=== PATIENT | male | born 1970 | race African-American/Black ===

== ENCOUNTER → 2022-10-24 13:22 | Outpatient (BNVA) | payer OTHER, SELFPAY | PROVIDERS: PCP Nurse Practitioner Family; Visit Provider Nurse Practitioner Family | DX: N39.0 Urinary tract infection, site not specified (principal); N52.9 Male erectile dysfunction, unspecified | CPT/HCPCS: 51798; 99202 ==

== ENCOUNTER 2023-08-22 14:54 | Outpatient (REF) | payer BC, MEDICAID, SELFPAY | END 2023-08-22 14:55 | disposition home or self-care (01) | LOC: HO.LAB 14:54 | PROVIDERS: PCP Nurse Practitioner Family; Visit Provider Nurse Practitioner Family | DX: N39.0 Urinary tract infection, site not specified (principal); N40.0 Benign prostatic hyperplasia without lower urinary tract symptoms; N52.9 Male erectile dysfunction, unspecified | CPT/HCPCS: 51798; 81003; 87086; 87088; 87186 ==

== ENCOUNTER 2023-08-22 14:54 | Outpatient (AMB) | payer BC, MEDICAID, SELFPAY ==
--- NOTE | 2023-08-22 14:57 | A.OFFVIS_ITS ---
Intake Intake Visit Reasons: follow up Intake Note: Patient presents for follow up recurrent uti and erectile dysfunction Urology Medications: Doxasosin, Methenamine, Sildenafil, Tadalafil, Vitamin C Blood Thinner: none PVR: 21 Linux System Administrator Required: No Accompanied by: Self / Same As Patient Allergies allopurinol Adverse Reaction (Verified 08/22/23 15:40) Itching Medication List - Last Reconciled 08/22/23 by JEREMIE Finney- ascorbic acid (vitamin C) 1 g PO DAILY 90 days atorvastatin 40 mg PO DAILY doxazosin 4 mg (2 x 2 mg) PO DAILY 90 days febuxostat 40 mg PO DAILY glipizide 5 mg PO BID hydrochlorothiazide 25 mg PO DAILY irbesartan 150 mg PO DAILY metformin 500 mg PO BID methenamine hippurate 1 g PO daily 90 days sildenafil 100 mg PO .PRN 30 days tadalafil 5 mg PO DAILY 90 days HPI HPI Comments History of Present Illness Details Carrillo is a pleasant 53-year-old male patient of Dr. Wei. He has a past medical history of recurrent urinary tract infections, hypertension, kidney disease, hyperlipidemia, gout, and type 2 diabetes. He presents to the office today for follow-up. Of note, patient was seen approximately 10 months ago as a new patient for recurrent urinary tract infections at which time recommendations were made for a retroperitoneal ultrasound as well as a PSA for further assessment evaluation. However, in discussion with the patient today he reports having lost his insurance and was unable to make it to his follow-up appointments. He discusses having made today's appointment due to foul-smelling urine. In office urinalysis results reviewed with the patient today 2+ leukocytes positive nitrates. He reports having followed up with Dr. Martinez approximately 2-3 years ago at which time he was told his UTIs were resistant to multiple bacterias and in the past doxycycline has been affective. Discussed sending urine today for urine culture. Discussed and stressed the importance of following up as recommended as well as obtaining further workup for further assessment, evaluation, and treatment plan. He reports compliance with methenamine and vitamin-C as prescribed. When asked he currently denies urinary urgency, urinary frequency, incontinence, nocturia, hematuria, dysuria, changes to urinary stream, flank pain, fever, and or chills. PVR 21 mL. Discussed at length potential causes for recurrent urinary tract infections. Discussed at length importance of managing diabetes for urinary issues, erectile dysfunction, and overall health and well-being. [facility] Medical History (Updated 08/22/23 @ 20:45 by ANTONI Finney) Urinary tract infection Urethral discharge, with blood Benign hypertension with stage 3b chronic kidney disease Recurrent UTI Hypertension Hyperlipidemia Gout Glucose intolerance Diabetes mellitus type 2, noninsulin dependent Review of Systems Const Reports no additional complaints Eyes Reports no additional complaints ENT Reports no additional complaints Card Reports as per HPI Resp Reports no additional complaints GI Reports no additional complaints Reports as per HPI Musc Reports no additional complaints Neuro Reports no additional complaints Psych Reports no additional complaints Endo Reports as per HPI Rip/Lymph Reports no additional complaints Aller/Immun Reports no additional complaints Physical Exam Const General: cooperative, healthy appearing, comfortable, no acute distress, well developed, alert and awake Orientation/consciousness: patient oriented x3 Limitations: no limitations HEENT Head: Yes normal to inspection, Yes normocephalic and Yes atraumatic Ears: hearing grossly normal bilaterally Eyes General: appearance normal, both eyes and all related structures Neck Neck: Yes normal visual inspection and Yes trachea midline Chest Chest palpation & inspection: normal inspection of the chest Resp Effort & Inspection: normal respiratory effort and able to speak in complete sentences Cardio Rate: regular rate GI Inspection: Yes normal to inspection Rectal Exam - Male: Yes deferred General: Yes no CVA tenderness Back/Spine/Pelvis Back: no CVA tenderness Skin General skin exam: no rashes or lesions noted Neuro General: patient oriented x3 Extrem General: Yes normal to inspection Psych Appearance: grossly normal and well kempt Mental Status: mental status grossly normal Speech and movement: Normal speech and movement present and Clear speech present Affect: normal affect Attitude: cooperative Thought process: Normal thought process present Thought content: Normal thought content present Insight: Fair insight present (Psych) Judgement: Fair judgement present (Psych) Office Procedures Post Void Residual Post Residual Void Post Void Residual (PVR): 21 [id number]-[id number] Void Residual by ultrasound Results AMB Urinalysis, Automated UA Leukoctes 125 Jarrell/uL Last Edit by Ara De La O CMA on 08/22/23 15:12 UA Nitrite Positive Last Edit by Ara De La O CMA on 08/22/23 15: 12 UA Urobilinogen 0.2 mg/dL Last Edit by Ara De La O CMA on 4 15:12 UA Protein 300 mg/dL Last Edit by [facility], [facility] on 08/22/23 15: 12 UA pH 6.0 Last Edit by [facility], [facility] on 08/22/23 15:12 UA Blood 10 Giovanni/uL Last Edit by [facility], [facility] on 08/22/23 15:12 UA Specific Riparius 1.020 Last Edit by [facility], [facility] on 15:12 UA Ketone Negative Last Edit by [facility], [facility] on 08/22/23 15:1 2 UA Bilirubin 0 mg/dL Last Edit by [facility], [facility] on 08/22/23 15: 12 UA Glucose 0 mg/dL Last Edit by [facility], [facility] on 08/22/23 15:12 Results Reviewed Results Reviewed: Laboratory Last Values Urine pH (Auto) 6.0 08/22/23 15:11 Specific Riparius (Auto) 1.020 08/22/23 15:11 Urine Protein (Auto) 300 mg/dL 08/22/23 15:11 Glucose (UA)(Auto) 0 mg/dL 08/22/23 15:11 Urine Ketones (Auto) Negative 08/22/23 15:11 Urine Blood (Auto) 10 Giovanni/uL 08/22/23 15:11 Urine Nitrite (Auto) Positive 08/22/23 15:11 Urine Bilirubin (Auto) 0 mg/dL 08/22/23 15:11 Urine Urobilinogen (Auto) 0.2 mg/dL 08/22/23 15:11 Leukocyte Esterase (Auto) 125 Jarrell/uL 08/22/23 15:11 Assessment & Plan Assessment & Plan (1) Recurrent urinary tract infection: Code(s): N39.0 - Urinary tract infection, site not specified (2) Erectile dysfunction: Code(s): N52.9 - Male erectile dysfunction, unspecified (3) Urinary tract infection: Code(s): N39.0 - Urinary tract infection, site not specified Plan In office urinalysis results reviewed with the patient today; as noted above; will send for urine culture. PVR 21 mL. Discussed at length potential causes for recurrent urinary tract infections. Discussed and stressed the importance of following up with recommendations for continuity of care. Start doxycycline as discussed and prescribed. Refills provided on p.r.n. Viagra, daily Cialis, doxazosin, methenamine, and vitamin-C. Discussed and stressed the importance of obtaining retroperitoneal ultrasound as discussed prior Discussed obtaining PSA status post completion of antibiotic therapy as it is likely to be elevated at this time due to UTI Discussed, educated, and stressed the importance of drinking plenty of water daily. Discussed possible near future in office cystoscopy and or microgen for further assessment evaluation if symptoms persist and/or worsen. Follow-up in 4-6 weeks with imaging to be completed prior; or sooner with any issues, concerns, and or questions. Orders: Orders Prostate Specific Antigen 08/18/23 N40.0 - Benign prostatic hyperplasia without lower urinary tract symptoms AMB Urinalysis Automated Today R33.9 - Retention of urine, unspecified AMB Post Void Residual by ultrasound Today R33.9 - Retention of urine, unspecified Urine Culture Today N39.0 - Urinary tract infection, site not specified Medications: New doxycycline hyclate 100 mg PO BID 14 days 28 tabs 0RF N39.0 - Urinary tract infection, site not specified, N45.1 - Epididymitis Refilled tadalafil [facility] [address] [id number] 5 mg PO DAILY 90 days 90 tabs 3RF sildenafil Use as needed for sexual activity. Take one hour prior [facility] [address] [id number] 100 mg PO .PRN 30 days 20 tabs 2RF doxazosin 4 mg (2 x 2 mg) PO DAILY 90 days 180 tabs 3RF methenamine hippurate 1 g PO daily 90 days 90 tabs 3RF ascorbic acid (vitamin C) 1 g PO DAILY 90 days 90 tabs 3RF N39.0 - Urinary tract infection, site not specified Patient Instructions: The patient had an opportunity to ask questions regarding the treatment plan. All questions were answered. Physical exam, labs, and imaging were discussed and reviewed in detail. As well as risks, benefits, and discussion of treatment choices. No major barriers to understanding were identified. The patient expressed understanding and agreement with the above treatment plan. The patient was made aware they should contact our office by phone for worsening of their current condition, the appearance of new symptoms, or with any questions or concerns. Compliance is encouraged with any medications and follow up testing that is ordered. It is a privilege to be allowed the opportunity to participate in? your urological care.? Again, if you have any questions or concerns If you have any questions or concerns please do not hesitate to contact me. The office is [phone]. This note is constructed using voice recognition software. While every effort has been made to ensure accuracy inner tube tuber machine operator errors may have been included. Yours sincerely, ANTONI Finney Coding Level of Care Code Est Pt Level 4 (15098) Diagnoses Recurrent urinary tract infection N39.0 Erectile dysfunction N52.9 Urinary tract infection N39.0 CPT Codes Post Residual Void - PVR CPT Code: 36187-Pubn Void Residual by ultrasound ([id number])
== END 2023-08-22 15:30 | disposition home or self-care (01) ==
PROVIDERS: PCP Nurse Practitioner Family; Visit Provider Nurse Practitioner Family
DX: N39.0 Urinary tract infection, site not specified (principal); N52.9 Male erectile dysfunction, unspecified
CPT/HCPCS: 99214

== ENCOUNTER 2023-09-14 15:06 | Outpatient (REF) | payer BC, MEDICAID, SELFPAY ==
[2023-09-14 16:34] LABS: Appearance Urine Clear; Color Urine Yellow; Glucose Urine UA Negative (Negative); Leukocyte Esterase Urine Small (1+) (Negative); Nitrite Urine Negative (Negative); PH 5.5 (5.0-9.0); Specific Gravity - Urine 1.015 (1.005-1.025); UMIC TRIGGER UA YES; Urine Blood Negative (Negative); Urine Ketones Negative (Negative); Urine Protein 300 (3+) mg/dL (Neg-Trace)
[2023-09-14 16:50] LABS: Bacteria Urine 2+ (None Seen); Hyaline Casts Urine 0-2 /LPF (0-2); RBC Urine 0-2 /HPF (0-2); Squamous Epithelial Cell Urine 0-2 /HPF (0-2); WBC Urine 21-50 /HPF (0-5)
== END 2023-09-14 15:07 | disposition home or self-care (01) ==
LOC: HO.LAB 15:06
PROVIDERS: Visit Provider Nurse Practitioner Family
DX: Z12.5 Encounter for screening for malignant neoplasm of prostate (principal); N40.0 Benign prostatic hyperplasia without lower urinary tract symptoms; N39.0 Urinary tract infection, site not specified
CPT/HCPCS: 36415; 81001; 84153; 87086; 87088; 87186

== ENCOUNTER 2023-09-28 14:56 | Outpatient (REF) | payer BC, MEDICAID, SELFPAY ==
--- NOTE | ~2023-09-28 | US_ITS ---
EXAMINATION: US RETROPERITONEAL COMPLETE (RENAL) CLINICAL INFORMATION: Urinary tract infection, site not specified. COMPARISON: Ultrasound kidneys and bladder 09/12/2018. TECHNIQUE: Real-time imaging of the kidneys and bladder. FINDINGS: RIGHT KIDNEY: 10.5 x 5.1 x 5.5 cm (SAG x AP x TRV). The kidney is normal in size, contour, and echogenicity. Renal cortical thickness is normal. No renal calculi or hydronephrosis. Multiple simple cysts, the largest measures 2.1 cm in the upper pole. No follow-up imaging is recommended. LEFT KIDNEY: 9.6 x 5.0 x 5.7 cm (SAG x AP x TRV). The kidney is normal in size and echogenicity. lobulation. Renal cortical thickness is normal. No renal calculi or hydronephrosis. 0.4 cm simple cyst in the mid kidney. No follow-up imaging is recommended. BLADDER: Well distended and normal. Bilateral ureteral jets are demonstrated. Prevoid bladder volume is 119 mL. Postvoid bladder volume is 6.5 mL. ADDITIONAL FINDINGS: The prostate measures 36 mL. US/US retroperitoneal comp IMPRESSION: Enlarged prostate. No nephrolithiasis or hydronephrosis.
== END 2023-09-28 14:57 | disposition home or self-care (01) ==
LOC: HO.US 14:56
PROVIDERS: PCP Nurse Practitioner Family; Visit Provider Nurse Practitioner Family
DX: N39.0 Urinary tract infection, site not specified (principal)
CPT/HCPCS: 76770

== ENCOUNTER 2023-10-04 14:48 | Outpatient (AMB) | payer BC, MEDICAID, SELFPAY ==
--- NOTE | 2023-10-04 14:49 | A.OFFVIS_ITS ---
Intake Intake Visit Reasons: 6w/US Intake Note: Patient presents for Tele Visit follow up recurrent uti and erectile dysfunction Urology Medications: Doxasosin, Methenamine, Sildenafil, Tadalafil, Vitamin C (patient stopped medications while taking medication for uti) Blood Thinner: none Casino Porter Required: No Accompanied by: Self / Same As Patient Allergies allopurinol Adverse Reaction (Verified 10/04/23 20:07) Itching Medication List - Last Reconciled 10/04/23 by ANTONI Finney ascorbic acid (vitamin C) 1 g PO DAILY 90 days atorvastatin 40 mg PO DAILY doxazosin 4 mg PO DAILY 90 days glipizide 5 mg PO BID hydrochlorothiazide 25 mg PO DAILY irbesartan 150 mg PO DAILY metformin 500 mg PO BID methenamine hippurate 1 g PO daily 90 days sildenafil 100 mg PO .PRN 30 days tadalafil 5 mg PO DAILY 90 days HPI HPI Comments History of Present Illness Details Carrillo is a pleasant 53-year-old male patient of Dr. Wei. He has a past medical history of recurrent urinary tract infections, hypertension, kidney disease, hyperlipidemia, gout, and type 2 diabetes. He is being followed up via video telehealth for his recurrent urinary tract infections. In discussion with the patient today he reports being unable to make it into the office as he was just diagnosed with COVID. He reports to be following up with PCP for his recent diagnosis of COVID. Of note, patient was seen approximately 6 weeks ago at which time a retroperitoneal ultrasound and PSA was ordered for further assessment evaluation. These results were reviewed with the patient today. Right kidney with no calculi, lesions, and or hydronephrosis noted. Multiple simple cyst the largest measuring 2.1 cm in the upper pole. No follow-up imaging is recommended per radiology report. Left kidney with no calculi or hydronephrosis. 0.4 cm simple cyst in the mid kidney. No follow-up imaging is recommended per radiology report. The bladder is well distended and normal. Bilateral ureteral jets are demonstrated. Pre void bladder volume is approximately 120 mL. Postvoid bladder volume is approximately 5 mL. The prostate measures 36 mL. PSA 09/09 2.4. He unable to obtain urine for urinalysis as visit is via telehealth however discussed obtaining urine for urine culture given patient's longstanding history of recurrent urinary tract infections in the setting of resistant p.o. antibiotic therapy. However, patient currently denies any bothersome urinary issues or concerns. Discussed borderline elevated PSA given age. Will continue with close surveillance monitoring. He reports compliance with methenamine and vitamin-C as prescribed. When asked he continues to report drinking plenty of water daily. When asked he currently denies urinary urgency, urinary frequency, incontinence, nocturia, hematuria, dysuria, changes to urinary stream, flank pain, fever, and or chills. Discussed at length potential causes for recurrent urinary tract infections. Discussed at length importance of managing diabetes for urinary issues, erectile dysfunction, and overall health and well-being. [facility] Medical History Urinary tract infection Urethral discharge, with blood Benign hypertension with stage 3b chronic kidney disease Recurrent UTI Hypertension Hyperlipidemia Gout Glucose intolerance Diabetes mellitus type 2, noninsulin dependent Review of Systems Const Reports no additional complaints Eyes Reports no additional complaints ENT Reports no additional complaints Card Reports as per HPI Resp Reports no additional complaints GI Reports no additional complaints Reports as per HPI Musc Reports no additional complaints Neuro Reports no additional complaints Psych Reports no additional complaints Endo Reports as per HPI Rip/Lymph Reports no additional complaints Aller/Immun Reports no additional complaints Physical Exam Const General: cooperative, healthy appearing, comfortable, no acute distress, well developed, alert and awake Orientation/consciousness: patient oriented x3 Resp Effort & Inspection: normal respiratory effort and able to speak in complete sentences Neuro General: patient oriented x3 Psych Appearance: grossly normal and well kempt Mental Status: mental status grossly normal Speech and movement: Normal speech and movement present and Clear speech present Affect: normal affect Attitude: cooperative Thought process: Normal thought process present Thought content: Normal thought content present Insight: Fair insight present (Psych) Judgement: Fair judgement present (Psych) Results Reviewed Results Reviewed: Date of Service: 09/28/23 EXAMINATION: US RETROPERITONEAL COMPLETE (RENAL) FINDINGS: RIGHT KIDNEY: 10.5 x 5.1 x 5.5 cm (SAG x AP x TRV). The kidney is normal in size, contour, and echogenicity. Renal cortical thickness is normal. No renal calculi or hydronephrosis. Multiple simple cysts, the largest measures 2.1 cm in the upper pole. No follow-up imaging is recommended. LEFT KIDNEY: 9.6 x 5.0 x 5.7 cm (SAG x AP x TRV). The kidney is normal in size and echogenicity. lobulation. Renal cortical thickness is normal. No renal calculi or hydronephrosis. 0.4 cm simple cyst in the mid kidney. No follow-up imaging is recommended. BLADDER: Well distended and normal. Bilateral ureteral jets are demonstrated. Prevoid bladder volume is 119 mL. Postvoid bladder volume is 6.5 mL. ADDITIONAL FINDINGS: The prostate measures 36 mL. IMPRESSION: Enlarged prostate. No nephrolithiasis or hydronephrosis. Assessment & Plan Assessment & Plan (1) Recurrent urinary tract infection: Code(s): N39.0 - Urinary tract infection, site not specified (2) Erectile dysfunction: Code(s): N52.9 - Male erectile dysfunction, unspecified (3) Renal cyst: Code(s): N28.1 - Cyst of kidney, acquired Plan Recent retroperitoneal ultrasound results reviewed with the patient today; as noted above. Recent PSA results reviewed with the patient today; as noted above. Continue methenamine and vitamin-C as discussed and prescribed. Discussed close monitoring of PSA with surveillance monitoring in 4 months. Discussed at length potential causes of recurrent urinary tract infections as well as renal cyst. Discussed, educated, and stressed the importance of continuing to drink plenty of water daily. Patient currently denies any bothersome urinary issues or concerns. He reports be happy with current voiding parameters. PSA in 4 months. Follow-up in 4 months with PSA and PVR; or sooner with any issues, concerns, and or questions. Orders: Orders Prostate Specific Antigen 4 Months N40.0 - Benign prostatic hyperplasia without lower urinary tract symptoms Patient Instructions: The patient had an opportunity to ask questions regarding the treatment plan. All questions were answered. Physical exam, labs, and imaging were discussed and reviewed in detail. As well as risks, benefits, and discussion of treatment choices. No major barriers to understanding were identified. The patient expressed understanding and agreement with the above treatment plan. The patient was made aware they should contact our office by phone for worsening of their current condition, the appearance of new symptoms, or with any questions or concerns. Compliance is encouraged with any medications and follow up testing that is ordered. It is a privilege to be allowed the opportunity to participate in? your urological care.? Again, if you have any questions or concerns If you have any questions or concerns please do not hesitate to contact me. The office is [phone]. This note is constructed using voice recognition software. While every effort has been made to ensure accuracy service center assistant errors may have been included. Yours sincerely, JEREMIE Finney- Telehealth Telehealth Location of provider rendering services: practice address Location of patient: address on file Patient Identification confirmed using: Name, : Yes Telehealth method: video Patient verbally consented to treatment: Yes Patient verbally consented to billing insurance company: Yes Patient informed of any privacy concerns related to visit: Yes Minutes spent on Phone/Video with Pt.: 20 Coding Level of Care Code Tele Est Pt Level 3 (94862) Diagnoses Recurrent urinary tract infection N39.0 Erectile dysfunction N52.9 Renal cyst N28.1
== END 2023-10-04 15:37 | disposition home or self-care (01) ==
LOC: HO.HUSH 14:49
PROVIDERS: PCP Nurse Practitioner Family; Visit Provider Nurse Practitioner Family
DX: N39.0 Urinary tract infection, site not specified (principal); N52.9 Male erectile dysfunction, unspecified; N28.1 Cyst of kidney, acquired
CPT/HCPCS: 99213

== ENCOUNTER → 2023-10-04 14:48 | Outpatient (BNVA) | payer BC, MEDICAID, SELFPAY | PROVIDERS: PCP Nurse Practitioner Family; Visit Provider Nurse Practitioner Family ==

== ENCOUNTER 2023-11-06 14:27 | Outpatient (REF) | payer BC, MEDICAID, SELFPAY ==
[2023-11-06 16:17] LABS: Appearance Urine Clear; Color Urine Yellow; Glucose Urine UA Negative (Negative); Leukocyte Esterase Urine Moderate (2+) (Negative); Nitrite Urine Negative (Negative); Specific Gravity - Urine 1.015 (1.005-1.025); UMIC TRIGGER UA YES; Urine Blood Trace (Negative); Urine Ketones Negative (Negative); Urine Protein 300 (3+) mg/dL (Neg-Trace)
[2023-11-06 16:26] LABS: Bacteria Urine 4+ (None Seen); Hyaline Casts Urine 0-2 /LPF (0-2); RBC Urine 0-2 /HPF (0-2); Squamous Epithelial Cell Urine 0-2 /HPF (0-2); WBC Urine >50 /HPF (0-5)
== END 2023-11-06 14:28 | disposition home or self-care (01) ==
LOC: HO.LAB 14:27
PROVIDERS: PCP Internal Medicine; Visit Provider Nurse Practitioner Family
DX: N39.0 Urinary tract infection, site not specified (principal)
CPT/HCPCS: 81001; 87086; 87088; 87186

== ENCOUNTER 2023-12-01 15:00 | Outpatient (RCR) | payer BC, MEDICAID, SELFPAY ==
[2023-11-22 14:38] VITALS: BP 163/104; PULSE 93; RESP 18; TEMP 36.7; O2SAT 98; BMI 29.5
[2023-11-22] MEDS: Ertapenem Sodium 1 GM in 0.9 % Sodium Chloride 50 ML IV (15:03)
[2023-11-22] MEDS: 0.9 % Sodium Chloride Flush 10 ML SYRINGE 5 ML IVFLUSH (15:03)
[2023-11-23 14:27] VITALS: BP 166/102; PULSE 102; RESP 18; TEMP 36.8; O2SAT 98
[2023-11-23] MEDS: 0.9 % Sodium Chloride Flush 10 ML SYRINGE 5 ML IVFLUSH (14:30)
--- NOTE | 2023-11-23 14:34 | HO.INF ---
patients BP noted to be elevated both days. patient states he will call md today and update him- as patient is on BP MED TWICE A DAY AND CAN NOT RECALL NAME OF MED.
[2023-11-23] MEDS: Ertapenem Sodium 1 GM in 0.9 % Sodium Chloride 50 ML IV (14:35)
--- NOTE | 2023-11-23 15:11 | HO.INF ---
15;15PM- PATIENT CALLED MD UPDATED ON BP'S. HAS OFFICE APPT November 2:30PM TO DISCUSS CURRENT MEDS AND BP'S.
[2023-11-24 06:58] VITALS: BP 153/101; PULSE 99; RESP 18; TEMP 36.9; O2SAT 99
[2023-11-24] MEDS: Ertapenem Sodium 1 GM in 0.9 % Sodium Chloride 50 ML IV (07:04)
[2023-11-25 09:54] VITALS: BP 164/101; PULSE 97; RESP 16; TEMP 36.7; O2SAT 99; BMI 29.5
[2023-11-25 10:10] VITALS: BP 162/96
[2023-11-25] MEDS: Ertapenem Sodium 1 GM in 0.9 % Sodium Chloride 50 ML IV (10:14)
[2023-11-26 10:00] VITALS: BP 158/103; PULSE 83; RESP 20; TEMP 36.9; O2SAT 99
[2023-11-26] MEDS: Ertapenem Sodium 1 GM in 0.9 % Sodium Chloride 50 ML IV (10:04)
[2023-11-27 14:31] VITALS: BP 184/110; PULSE 79; RESP 18; TEMP 36.8; O2SAT 100
[2023-11-27 14:41] VITALS: BP 175/116; PULSE 76; RESP 18
[2023-11-27] MEDS: 0.9 % Sodium Chloride Flush 10 ML SYRINGE 5 ML IVFLUSH (15:04)
[2023-11-27] MEDS: Ertapenem Sodium 1 GM in 0.9 % Sodium Chloride 50 ML IV (15:05)
[2023-11-28 13:57] VITALS: BP 167/107; PULSE 87; RESP 16; TEMP 36.9; O2SAT 99
[2023-11-28] MEDS: Ertapenem Sodium 1 GM in 0.9 % Sodium Chloride 50 ML IV (14:15)
[2023-11-29 10:52] VITALS: BP 169/101; PULSE 83; RESP 16; TEMP 36.7; O2SAT 100
[2023-11-29] MEDS: Ertapenem Sodium 1 GM in 0.9 % Sodium Chloride 50 ML IV (11:07)
[2023-11-30 11:20] VITALS: BP 166/107; PULSE 79; RESP 18; TEMP 37; O2SAT 99
[2023-11-30] MEDS: Ertapenem Sodium 1 GM in 0.9 % Sodium Chloride 50 ML IV (11:33)
[2023-11-30] MEDS: 0.9 % Sodium Chloride Flush 10 ML SYRINGE 5 ML IVFLUSH (12:05)
[2023-12-01 14:41] VITALS: BP 156/101; PULSE 85; RESP 16; TEMP 36.6; O2SAT 98
[2023-12-01] MEDS: Ertapenem Sodium 1 GM in 0.9 % Sodium Chloride 50 ML IV (14:52)
== END 2023-12-01 15:28 | disposition home or self-care (01) ==
LOC: HO.INF 15:00
PROVIDERS: Visit Provider Nurse Practitioner Family
DX: N39.0 Urinary tract infection, site not specified (principal)
CPT/HCPCS: 96365; J1335

== ENCOUNTER 2023-12-19 14:32 | Outpatient (AMB) | payer BC, MEDICAID, SELFPAY ==
--- NOTE | 2023-12-19 14:47 | MHC.OFFVIS ---
Intake Visit Reasons: cysto Intake Note: Patient is Present for Cystoscopy Urology Med: Sildenafil, Doxazosin, Tadalafil, Methenamine Antibiotic Allergy: None Blood Thinner: None URO- G Disposable Cystoscope lot:[id number] exp:08/17/26 Allergies allopurinol Adverse Reaction (Severe, Verified 12/19/23 14:54) Itching HPI Comments Details: Carrillo is a pleasant male. He is a patient of Dr. Wei. He has seen for the following urologic conditions - recurrent UTI Had previously been placed on methenamine and vitamin-C Recurrent UTIs Ultrasound performed with multiple renal cyst Bladder distended Prostate measures 34 cc PSA 2.4 Had denied urinary urgency, frequency, incontinence, hematuria Has follow-up in month for repeat PSA [facility] Medical History (Updated 12/19/23 @ 15:50 by Tita Infante [facility]-) Urinary tract infection Urethral discharge, with blood Benign hypertension with stage 3b chronic kidney disease Recurrent UTI Hypertension Hyperlipidemia Gout Glucose intolerance Diabetes mellitus type 2, noninsulin dependent Surgical History (Updated 11/25/23 @ 09:56 by Lou Flores) No pertinent past surgical history Review of Systems Const Denies chills and Denies fever(s) Card Reports no additional complaints and Denies syncope Resp Denies cough GI Denies abdominal pain and Denies heartburn Reports as per HPI and Denies change in libido Neuro Denies syncope Psych Denies change in libido Endo Denies change in libido Physical Exam Const General: cooperative, healthy appearing, comfortable and no acute distress Orientation/consciousness: patient oriented x3 HEENT Face and sinus: Yes normal facial exam Mouth: moist mucous membranes Neck Neck: Yes normal visual inspection, Yes full ROM and Yes trachea midline Chest Chest palpation & inspection: normal inspection of the chest Resp Effort & Inspection: normal respiratory effort, able to speak in complete sentences and no respiratory distress GI Inspection: Yes normal to inspection Back/Spine/Pelvis Cervical Spine: normal cervical lordosis Thoracic/Lumbar Spine: thoracic and lumbar spine normal to inspection Skin General skin exam: no rashes or lesions noted Neuro General: patient oriented x3, gait normal, tone normal and moves all extremities Extrem General: Yes normal to inspection and Yes capillary refill normal Office Procedures Cystoscopy Consent Discussed risk and benefit or proposed procedure with the patient. Information consent for procedure given to the patient. Discussed technical aspects, risks, benefits and alternatives in full. Addressed all of the patient's questions and concerns regarding the procedure. The patient demonstrated knowledge and understanding. They wish to proceed with this procedure. Preparation The patient was prepped in the usual manner. A editing computer publisher was present and in the room. Genitalia was prepped with betadine solution in a sterile manner. Lidocaine Jelly 2% was placed into the urethra and 16Fr flexible Olympus cystoscope was inserted into the meatus after adequate lubrication. Procedure Cystoscopy performed using a disposable Urovue digital 16 Sinhala cystoscope. Meatus circumcised Urethra anterior and posterior normal Prostatic Urethra unremarkable Bladder examination with retroflexion of cystoscope Bladder Orifices normal shape and position Bladder Capacity medium Trabeculations grade 1 Cellule Formation - Diverticulum Formation - Mucosal Erythema -- Bladder Tumor - [id number] DISPOSABLE SCOPE URO-G FLEXIBLE SCOPE Procedure code (CPT) selection complete Office Meds lidocaine HCl 2 % mucosal jelly in applicator Performing Provider: Michael Egan MD Performing Location: [facility] Administered by: SARAI Covington on 12/19/23 15:14 Dose Route Admin Location Dispensed Lot Number Expiration Date NDC Super[employer] 10 mL intra-urethral 10 mL nitrofurantoin monohydrate/macrocrystals 100 mg capsule Performing Provider: Michael Egan MD Performing Location: [facility] Administered by: SARAI Covington on 12/19/23 15:14 Dose Route Admin Location Dispensed Lot Number Expiration Date NDC [employer] 100 mg PO 1 cap naproxen 500 mg tablet Performing Provider: Michael Egan MD Performing Location: [facility] Administered by: SARAI Covington on 12/19/23 15:14 Dose Route Admin Location Dispensed Lot Number Expiration Date NDC [employer] 500 mg PO 1 tab Results AMB Urinalysis, Automated UA Leukoctes 15 Jarrell/uL Last Edit by SARAI Covington on 12/19/23 15:15 UA Nitrite Negative Last Edit by SARAI Covington on 12/19/23 15:15 UA Urobilinogen 0.2 mg/dL Last Edit by SARAI Covington on 12/19/23 15:15 UA Protein 300 mg/dL Last Edit by SARAI Covington on 12/19/23 15:15 UA pH 5.5 Last Edit by Allyn Vidales, RMA on 12/19/23 15:15 UA Blood 10 Giovanni/uL Last Edit by Allyn Vidales, RMA on 12/19/23 15:15 UA Specific [place] 1.015 Last Edit by Allyn Vidales, RMA on 12/19/23 15:15 UA Ketone Negative Last Edit by Allyn Vidales, RMA on 12/19/23 15:15 UA Bilirubin 0 mg/dL Last Edit by Allyn Vidales, RMA on 12/19/23 15:15 UA Glucose 0 mg/dL Last Edit by Allyn Vidales, A on 12/19/23 15:15 Results Reviewed Results Reviewed: Laboratory Last Values Urine pH (Auto) 5.5 12/19/23 14:55 Specific [place] (Auto) 1.015 12/19/23 14:55 Urine Protein (Auto) 300 mg/dL 12/19/23 14:55 Glucose (UA)(Auto) 0 mg/dL 12/19/23 14:55 Urine Ketones (Auto) Negative 12/19/23 14:55 Urine Blood (Auto) 10 Giovanni/uL 12/19/23 14:55 Urine Nitrite (Auto) Negative 12/19/23 14:55 Urine Bilirubin (Auto) 0 mg/dL 12/19/23 14:55 Urine Urobilinogen (Auto) 0.2 mg/dL 12/19/23 14:55 Leukocyte Esterase (Auto) 15 Jarrell/uL 12/19/23 14:55 Assessment & Plan Assessment & Plan (1) BPH (benign prostatic hyperplasia): Code(s): N40.0 - Benign prostatic hyperplasia without lower urinary tract symptoms Category: Medical (2) Recurrent urinary tract infection: Code(s): N39.0 - Urinary tract infection, site not specified Category: Medical Plan Finasteride started Upcoming appointment with Nephrology for proteinuria Orders: Orders AMB Cystoscopy 12/19/23 N39.0 - Urinary tract infection, site not specified AMB Urinalysis Automated 12/19/23 Z13.9 - Encounter for screening, unspecified Medications: Discontinued doxazosin Discontinued Reason: Doctor's Order 4 mg PO DAILY 90 days 90 tabs 3RF Patient Instructions: Imaging studies, laboratory and physical exam results were discussed and reviewed in detail. No major barriers to patient understanding were identified. An opportunity to ask questions regarding the treatment plan was provided. All questions were answered. The patient expressed understanding and agreement with the above treatment plan. The patient is aware they should contact our office by phone for worsening of their current condition or the appearance of new urologic symptoms. Compliance is encouraged with any medications and followup testing that is ordered. It is a privilege to participate in the urologic care of your patient. If you have any questions or concerns regarding treatment for the above conditions, or other urologic issues, please do not hesitate to contact me. The office telephone contact is [phone]. This note is constructed using voice recognition software. While every effort has been made to ensure accuracy jig inspector errors may have been included. Yours sincerely, Dr Michael Egan MD, [facility] - Urology Providers of Expert, Compassionate Care for the Genitourinary System Coding Level of Care Code Est Pt Level 3 (92389) Diagnoses BPH (benign prostatic hyperplasia) N40.0 Recurrent urinary tract infection N39.0 CPT Codes Cystoscopy - CPT: 76094-[id number] ([id number])
== END 2023-12-19 15:53 | disposition home or self-care (01) ==
PROVIDERS: PCP Internal Medicine; Visit Provider Urology
DX: N39.0 Urinary tract infection, site not specified (principal); N40.0 Benign prostatic hyperplasia without lower urinary tract symptoms
CPT/HCPCS: 52000; 99213

== ENCOUNTER → 2023-12-19 14:32 | Outpatient (BNVA) | payer BC, MEDICAID, SELFPAY | PROVIDERS: PCP Internal Medicine; Visit Provider Urology | DX: N40.0 Benign prostatic hyperplasia without lower urinary tract symptoms (principal); N39.0 Urinary tract infection, site not specified; Z79.899 Other long term (current) drug therapy | CPT/HCPCS: 52000; 81003 ==

== ENCOUNTER 2024-01-03 13:43 | Outpatient (AMB) | payer BC, MEDICAID, SELFPAY ==
--- NOTE | 2024-01-03 13:48 | HO.NEPHOV_ITS ---
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 Required: No Accompanied by: Self / Same As Patient Allergies allopurinol Adverse Reaction (Severe, Verified 01/03/24 13:51) Itching Medication List - Last Reconciled 01/03/24 by Efraín Arita MD ascorbic acid (vitamin C) 1 g PO DAILY 90 days atorvastatin 40 mg PO DAILY finasteride 5 mg PO DAILY 90 days glipizide 5 mg PO BID hydrochlorothiazide 25 mg PO DAILY irbesartan 150 mg PO DAILY losartan 50 mg PO DAILY metformin 500 mg PO BID methenamine hippurate 1 g PO daily 90 days sildenafil 100 mg PO .PRN 30 days tadalafil 5 mg PO DAILY 90 days HPI Comments Details: .Carrillo is a pleasant 53-year-old man with history of longstanding hypertension and diabetes mellitus for about 5 years. He has a history of BPH and was evaluated by Urology. He has had history of recurrent UTIs. During evaluation he was found to have proteinuria. This referral has been made for evaluation of proteinuria Currently he is on losartan 50 mg along with hydrochlorothiazide 25 mg. The blood pressure has been suboptimal. However he has been monitoring his blood pressure at home. History of gout. He is allergic to allopurinol. He was recently treated with a course of prednisone. He has not on any uric acid lowering agents. It does not take any NSAIDs. No history of smoking. No history of any alcohol abuse. He has on a regular diet. Not on any salt restriction. [facility] Medical History (Updated 01/03/24 @ 14:20 by Efraín Arita MD) Urinary tract infection Urethral discharge, with blood Benign hypertension with stage 3b chronic kidney disease Recurrent UTI Hypertension Hyperlipidemia Gout Glucose intolerance Diabetes mellitus type 2, noninsulin dependent Surgical History No pertinent past surgical history Review of Systems Const Denies anorexia, Denies fever(s) and Denies weakness Eyes Denies blurry vision Card Denies no additional complaints and Denies dyspnea Resp Reports no additional complaints, Reports cough and Denies dyspnea GI Denies melena and Denies diarrhea Denies hematuria Musc Denies tingling Skin/Breast Denies rash Neuro Denies focal weakness, Denies tingling, Denies tremor(s) and Denies weakness Physical Exam Vital Signs: Last Vital Signs Pulse 91 01/03/24 13:49 BP 172/108 H 01/03/24 13:49 Pulse Ox 97 01/03/24 13:49 Oxygen Delivery Method Room Air 01/03/24 13:49 BMI result Body Mass Index 28.9 Const General: comfortable; No acute distress Orientation/consciousness: patient oriented x3 Eyes General: appearance normal, both eyes and all related structures Visual Malloy: normal visual malloy by confrontation Neck Neck: Yes supple and Yes no JVD Resp Effort & Inspection: normal respiratory effort and respiratory effort not decreased Auscultation: rhonchi Cardio Palpation: no palpable S3 and no palpable S4 Heart sounds: no rubs GI Inspection: Yes normal to inspection Palpation (GI): Soft to palpation Percussion: Yes normal to percussion Auscultation: normal bowel sounds General: Yes no CVA tenderness Back/Spine/Pelvis Back: no CVA tenderness Skin General skin exam: no petechiae and no purpura Neuro General: patient oriented x3 and no focal motor deficits Extrem General: No clubbing and No edema Results Reviewed Results Reviewed: RIGHT KIDNEY: 10.5 x 5.1 x 5.5 cm (SAG x AP x TRV). The kidney is normal in size, contour, and echogenicity. Renal cortical thickness is normal. No renal calculi or hydronephrosis. Multiple simple cysts, the largest measures 2.1 cm in the upper pole. No follow-up imaging is recommended. LEFT KIDNEY: 9.6 x 5.0 x 5.7 cm (SAG x AP x TRV). The kidney is normal in size and echogenicity. lobulation. Renal cortical thickness is normal. No renal calculi or hydronephrosis. 0.4 cm simple cyst in the mid kidney. No follow-up imaging is recommended. BLADDER: Well distended and normal. Bilateral ureteral jets are demonstrated. Prevoid bladder volume is 119 mL. Postvoid bladder volume is 6.5 mL. ADDITIONAL FINDINGS: The prostate measures 36 mL. US/US retroperitoneal comp IMPRESSION: Enlarged prostate. No nephrolithiasis or hydronephrosis. Nephrology Results: Urine Protein 300 (3+) mg/dL (Neg-Trace) H 11/06/23 Assessment & Plan Assessment & Plan (1) Proteinuria: Code(s): R80.9 - Proteinuria, unspecified Category: Medical (2) Renal cyst: Code(s): N28.1 - Cyst of kidney, acquired Category: Medical (3) Gout: Code(s): M10.9 - Gout, unspecified Category: Medical Plan . Middle-aged man with longstanding hypertension and diabetes mellitus with proteinuria by dipstick. Proteinuria is most likely due to underlying diabetic kidney disease. Nondiabetic causes should be ruled out. Exact baseline creatinine is unknown at this time. I will track down the previous lab works. Goal is to slow the progression of renal disease. Continue overt nephrotoxic agents. Maximize KVNG inhibition for renal protection. He will benefit from SGLT2 inhibitors Hypertension Blood pressure is suboptimal. However seems to be better controlled after the addition of losartan. Losartan was added less than a week ago. I would give it another week or so before we titrate the dose. Goal is to maintain blood pressure less than 130/80. Encouraged him to stay on low-sodium diet. He will monitor his blood pressure for the next 2 weeks and keep me updated. Diabetes mellitus Goal is to maintain A1c less than 7%. Gout He has had multiple episodes of gout in the past. I will check uric acid levels. Shall add Uloric based on the levels. Encouraged him to stay on low purine diet. Orders: Orders Creatinine Clearance Urine 24U Today R80.9 - Proteinuria, unspecified Protein, 24 Hr Urine Group Today R80.9 - Proteinuria, unspecified Creatinine Urine Today R80.9 - Proteinuria, unspecified UA and rflx microscopic Today R80.9 - Proteinuria, unspecified TIGIST Reflex Titer and Pattern Today R80.9 - Proteinuria, unspecified Neutrophil Cytoplasma Ab Today R80.9 - Proteinuria, unspecified Complement C3 Today R80.9 - Proteinuria, unspecified Protein Electrophoresis, Serum Today R80.9 - Proteinuria, unspecified Uric Acid Today M10.9 - Gout, unspecified Comprehensive Met. Panel Today R80.9 - Proteinuria, unspecified Complement C4 Today R80.9 - Proteinuria, unspecified Phospholipase A2 Receptor Pnl Today R80.9 - Proteinuria, unspecified Coding Level of Care Code New Pt Level 5 (76281) Diagnoses Proteinuria R80.9 Renal cyst N28.1 Gout M10.9
[2024-01-03 13:49] VITALS: BP 172/108; PULSE 91; O2SAT 97; BMI 28.9
== END 2024-01-03 14:19 | disposition home or self-care (01) ==
PROVIDERS: PCP Internal Medicine; Referring Provider Nurse Practitioner Family; Visit Provider Internal Medicine Hypertension Specialist
DX: R80.9 Proteinuria, unspecified (principal); N28.1 Cyst of kidney, acquired; M10.9 Gout, unspecified
CPT/HCPCS: 99204

== ENCOUNTER → 2024-01-03 13:43 | Outpatient (BNVA) | payer BC, MEDICAID, SELFPAY | PROVIDERS: PCP Internal Medicine; Referring Provider Nurse Practitioner Family; Visit Provider Internal Medicine Hypertension Specialist ==

== ENCOUNTER 2024-01-03 14:33 | Outpatient (REF) | payer BC, MEDICAID, SELFPAY ==
[2024-01-03 18:20] LABS: Appearance Urine Clear; Color Urine Yellow; Glucose Urine UA Negative (Negative); Leukocyte Esterase Urine Moderate (2+) (Negative); Nitrite Urine Positive (Negative); PH 5.5 (5.0-9.0); Specific Gravity - Urine 1.015 (1.005-1.025); UMIC TRIGGER UA YES; Urine Blood Trace (Negative); Urine Ketones Negative (Negative); Urine Protein 300 (3+) mg/dL (Neg-Trace)
[2024-01-03 18:22] LABS: Bacteria Urine 4+ (None Seen); Hyaline Casts Urine 0-2 /LPF (0-2); RBC Urine 0-2 /HPF (0-2); WBC Urine >50 /HPF (0-5)
[2024-01-03 18:33] LABS: Alanine Aminotransferase 10 U/L (0-40); Albumin Level 4.3 g/dL (3.5-5.0); Alkaline Phosphatase 65 U/L (39-117); Anion Gap 11 (12-20); Aspartate Amino Transferase 14 U/L (5-37); Bilirubin Total 0.6 mg/dL (0.0-1.0); Blood Urea Nitrogen 36 mg/dL (9-16); Calcium 9.2 mg/dL (8.4-10.2); Carbon Dioxide 23 mmol/L (22-29); Chloride 113 mmol/L (96-108); Estimated Glomerular Filt Rate 32; Glucose Random 107 mg/dL (60-115); Potassium 3.5 mmol/L (3.3-5.1); Sodium 143 mmol/L (135-145); Total Protein 7.5 g/dL (6.5-8.0)
[2024-01-03 18:48] LABS: Prostate Specific Antigen 1.59 ng/mL (<0.05-4.0)
[2024-01-03 18:56] LABS: Creatinine Urine 100.53 mg/dL
[2024-01-04 22:13] LABS: Prot Elec - Albumin 4.2 g/dL (3.8-4.8); Prot Elec - Alpha1 0.3 g/dL (0.2-0.3); Prot Elec - Alpha2 0.7 g/dL (0.5-0.9); Prot Elec - Beta 1 0.4 g/dL (0.4-0.6); Prot Elec - Beta 2 0.4 g/dL (0.2-0.5); Prot Elec - Gamma 1.1 g/dL (0.8-1.7); Prot Elec - Total Protein 7.1 g/dL (6.1-8.1)
[2024-01-04 22:18] LABS: Complement C3 138 mg/dL (82-185)
[2024-01-05 14:09] LABS: Anti Nuclear Antibody Screen NEGATIVE (NEGATIVE)
[2024-01-08 15:29] LABS: Neutrophil Cyto Ab Screen NEGATIVE (NEGATIVE)
[2024-01-11 21:44] LABS: Phospholipase A2 IgG ELISA <4 RU/mL; Phospholipase A2 IgG IFA NEGATIVE (NEGATIVE)
== END 2024-01-03 14:34 | disposition home or self-care (01) ==
LOC: HO.HKASLDS 14:33
PROVIDERS: Nurse Practitioner Family; Visit Provider Internal Medicine Hypertension Specialist
DX: R80.9 Proteinuria, unspecified (principal); M10.9 Gout, unspecified; N40.0 Benign prostatic hyperplasia without lower urinary tract symptoms; Z12.5 Encounter for screening for malignant neoplasm of prostate
CPT/HCPCS: 36415; 80053; 81001; 82570; 83520; 84153; 84165; 84550; 86036; 86038; 86160; 86255

== ENCOUNTER 2024-01-09 09:53 | Outpatient (REF) | payer BC, MEDICAID, SELFPAY ==
[2024-01-09 18:38] LABS: Total Volume 24 Hour Urine 2200 mL
[2024-01-09 18:58] LABS: Creatinine, 24Hr Urine 1.5 G/Day (1.0-2.0); Creatinine, mg/dL 67.39; Protein 24 Hr Urine 3058 mg/Day (<150); Protein mg/dL 139 mg/dL
[2024-01-10 14:41] LABS: Creatinine (CrCl) 2.14 mg/dL (0.5-1.4); Creatinine Clearance 48.1 mL/min (85-125)
== END 2024-01-09 09:54 | disposition home or self-care (01) ==
LOC: HO.HKASLDS 09:53
PROVIDERS: Visit Provider Internal Medicine Hypertension Specialist
DX: R80.9 Proteinuria, unspecified (principal)
CPT/HCPCS: 82575; 84156

== ENCOUNTER 2024-01-17 09:42 | Outpatient (AMB) | payer BC, MEDICAID, SELFPAY ==
[2024-01-17 09:45] VITALS: BP 170/92; PULSE 93; O2SAT 96; BMI 28.9
--- NOTE | 2024-01-17 09:45 | HO.NEPHOV ---
Vital Signs 01/17/24 09:45 Height 6 ft 2 in Weight 225 lb BMI 28.9 BP 170/92 H Blood Pressure Location Lt brachial Position Sitting Pulse 93 Pulse Source Pulse Oximeter Pulse Oximetry (%) 96 Oxygen Delivery Method Room Air Intake Visit Reasons: 2 wks follow up Lead Mobile Developer Required: No Accompanied by: Self / Same As Patient Allergies losartan Allergy (Unknown, Verified 01/17/24 09:47) Stomach Upset allopurinol Adverse Reaction (Severe, Verified 01/17/24 09:47) Itching HPI Comments Details: .Carrillo is a pleasant 53-year-old man with history of longstanding hypertension and diabetes mellitus for about 5 years. He has a history of BPH and was evaluated by Urology. He has had history of recurrent UTIs. During evaluation he was found to have proteinuria. This referral has been made for evaluation of proteinuria Currently he is on losartan 50 mg along with hydrochlorothiazide 25 mg. The blood pressure has been suboptimal. However he has been monitoring his blood pressure at home. History of gout. He is allergic to allopurinol. He was recently treated with a course of prednisone. He has not on any uric acid lowering agents. It does not take any NSAIDs. No history of smoking. No history of any alcohol abuse. He has on a regular diet. Not on any salt restriction. 01/17/2024. Currently he has pain in his right knees. He feels that gout has returned. Recently completed a course of antibiotic for UTI. He is still having symptoms of dysuria. Losartan has been added recently and since then he has been having diarrhea. He feels he might be allergic to this medication. He has been monitoring blood pressure at home and blood pressure readings are still suboptimal. The workup revealed serum creatinine of 2.1 mg/dL and 24 urine collection revealed a protein excretion of more than 3 g with a creatinine clearance of 48 mL/minute. [facility] Medical History (Updated 01/17/24 @ 10:24 by Efraín Arita MD) Urinary tract infection Urethral discharge, with blood Benign hypertension with stage 3b chronic kidney disease Recurrent UTI Hypertension Hyperlipidemia Gout Glucose intolerance Diabetes mellitus type 2, noninsulin dependent Surgical History No pertinent past surgical history Physical Exam Vital Signs: Last Vital Signs Pulse 93 01/17/24 09:45 BP 170/92 H 01/17/24 09:45 Pulse Ox 96 01/17/24 09:45 Oxygen Delivery Method Room Air 01/17/24 09:45 BMI result Body Mass Index 28.9 Const General: comfortable; No acute distress Orientation/consciousness: patient oriented x3 Eyes General: appearance normal, both eyes and all related structures Visual Malloy: normal visual malloy by confrontation Neck Neck: Yes supple and Yes no JVD Resp Effort & Inspection: normal respiratory effort and respiratory effort not decreased Auscultation: rhonchi Cardio Palpation: no palpable S3 and no palpable S4 Heart sounds: no rubs GI Inspection: Yes normal to inspection Palpation (GI): Soft to palpation Percussion: Yes normal to percussion Auscultation: normal bowel sounds General: Yes no CVA tenderness Back/Spine/Pelvis Back: no CVA tenderness Skin General skin exam: no petechiae and no purpura Neuro General: patient oriented x3 and no focal motor deficits Extrem General: No clubbing and No edema Results Reviewed Nephrology Results: Sodium 143 mmol/L (135-145) 01/03/24 Potassium 3.5 mmol/L (3.3-5.1) 01/03/24 Chloride 113 mmol/L (96-108) H 01/03/24 Carbon Dioxide 23 mmol/L (22-29) 01/03/24 BUN 36 mg/dL (9-16) H 01/03/24 Creatinine 2.14 mg/dL (0.5-1.4) H 01/09/24 Calcium 9.2 mg/dL (8.4-10.2) 01/03/24 Urine Protein 300 (3+) mg/dL (Neg-Trace) H 01/03/24 Urine Creatinine 100.53 mg/dL 01/03/24 Assessment & Plan Assessment & Plan (1) Proteinuria: Code(s): R80.9 - Proteinuria, unspecified Category: Medical (2) Urinary tract infection: Code(s): N39.0 - Urinary tract infection, site not specified Category: Medical (3) Diabetes mellitus type 2, noninsulin dependent: Code(s): E11.9 - Type 2 diabetes mellitus without complications Category: Medical (4) Gout: Code(s): M10.9 - Gout, unspecified Category: Medical (5) Renal cyst: Code(s): N28.1 - Cyst of kidney, acquired Category: Medical (6) CKD (chronic kidney disease): Code(s): N18.9 - Chronic kidney disease, unspecified Category: Medical Plan . Middle-aged man with longstanding hypertension and diabetes mellitus with proteinuria by dipstick. Proteinuria Although this could be due to underlying diabetic nephropathy, Nondiabetic causes should be ruled out. Especially since he says that he has had diabetes for just 5 years. Serologies have been negative thus far. Differential diagnosis would include diabetic nephropathy, FSGS,. Membranous versus others He would benefit from a kidney biopsy for a definite diagnosis. I have discussed this with him. He has agreed I will arrange for a kidney biopsy. Chronic kidney disease -as above Goal is to slow the progression of renal disease. Continue overt nephrotoxic agents. Maximize KVNG inhibition for renal protection. He will benefit from SGLT2 inhibitors Exact baseline creatinine is unknown at this time. Recent serum creatinine was 2.14. This may very well be his baseline. Hypertension Blood pressure is suboptimal. Since he is intolerant to losartan I will switch it to valsartan 160 mg daily. I am not adding HCTZ due to history of gout. Goal is to maintain blood pressure less than 130/80. Encouraged him to stay on low-sodium diet. Diabetes mellitus Goal is to maintain A1c less than 7%. Gout He has had multiple episodes of gout in the past. Uric acid level was normal at 5.0 We will not add Uloric at this time. I have taken liberty of referring for rheumatological evaluation. Gout vs pseudogout Gave him a prescription for prednisone Encouraged him to stay on low purine diet. Recurrent UTI. Repeat urine culture ordered. Follow up with Urology Orders: Orders UA and rflx microscopic Today N39.0 - Urinary tract infection, site not specified Urine Culture Today N39.0 - Urinary tract infection, site not specified CT biopsy renal RT Today E11.9 - Type 2 diabetes mellitus without complications, R80.9 - Proteinuria, unspecified Referrals Rheumatology Referral M10.9 - Gout, unspecified Medications: New valsartan 160 mg PO DAILY 30 tabs 1RF prednisone 5 tabs on day 1; 4 tabs on day 2, 3 tabs on day 3; 2 tabs on day 4 , 1 tab on day 5 and then 1 tabs PO PRN daily for gout 1 mg PO DAILY 30 tabs 0RF Coding Level of Care Code Est Pt Level 5 (35028) Diagnoses Proteinuria R80.9 Urinary tract infection N39.0 Diabetes mellitus type 2, noninsulin dependent E11.9 Gout M10.9 Renal cyst N28.1 CKD (chronic kidney disease) N18.9
== END 2024-01-17 10:20 | disposition home or self-care (01) ==
PROVIDERS: PCP Internal Medicine; Visit Provider Internal Medicine Hypertension Specialist
DX: R80.9 Proteinuria, unspecified (principal); E11.22 Type 2 diabetes mellitus with diabetic chronic kidney disease; N18.9 Chronic kidney disease, unspecified; M10.9 Gout, unspecified; N39.0 Urinary tract infection, site not specified; N28.1 Cyst of kidney, acquired
CPT/HCPCS: 99214

== ENCOUNTER → 2024-01-17 09:42 | Outpatient (BNVA) | payer BC, MEDICAID, SELFPAY | PROVIDERS: PCP Internal Medicine; Visit Provider Internal Medicine Hypertension Specialist ==

== ENCOUNTER 2024-01-17 10:22 | Outpatient (REF) | payer BC, MEDICAID, SELFPAY ==
[2024-01-17 18:06] LABS: Appearance Urine Hazy; Color Urine Yellow; Glucose Urine UA Negative (Negative); Leukocyte Esterase Urine Small (1+) (Negative); Nitrite Urine Positive (Negative); Specific Gravity - Urine 1.025 (1.005-1.025); UMIC TRIGGER UA YES; Urine Blood Small (1+) (Negative); Urine Ketones Negative (Negative); Urine Protein 300 (3+) mg/dL (Neg-Trace)
[2024-01-17 18:12] LABS: Bacteria Urine 4+ (None Seen); Hyaline Casts Urine 0-2 /LPF (0-2); RBC Urine 0-2 /HPF (0-2); Squamous Epithelial Cell Urine 0-2 /HPF (0-2); WBC Urine >50 /HPF (0-5)
== END 2024-01-17 10:23 | disposition home or self-care (01) ==
LOC: HO.HKASLDS 10:22
PROVIDERS: Visit Provider Internal Medicine Hypertension Specialist
DX: N39.0 Urinary tract infection, site not specified (principal); R80.9 Proteinuria, unspecified
CPT/HCPCS: 81001; 87086; 87088; 87186

== ENCOUNTER 2024-02-07 14:18 | Outpatient (AMB) | payer BC, MEDICAID, SELFPAY ==
--- NOTE | 2024-02-07 14:20 | MHC.OFFVIS ---
Intake Visit Reasons: 4m/PSA Intake Note: Patient presents today for follow up on: recurrent uti, erectile dysfunction, and PSA labs PSA: 1.59 Urology Medications: Finasteride, Methenamine, Sildenafil, Tadalafil, Vitamin C Blood Thinner: none PVR: 15ml's Flight Engineer Inspector Required: No Accompanied by: Self / Same As Patient Allergies losartan Allergy (Unknown, Verified 02/07/24 15:29) Stomach Upset allopurinol Adverse Reaction (Severe, Verified 02/07/24 15:29) Itching Medication List - Last Reconciled 02/07/24 by ANTONI Finney ascorbic acid (vitamin C) 1 g PO DAILY 90 days atorvastatin 40 mg PO DAILY finasteride 5 mg PO DAILY 90 days glipizide 5 mg PO BID metformin 500 mg PO BID methenamine hippurate 1 g PO daily 90 days prednisone 1 mg PO DAILY sildenafil 100 mg PO .PRN 30 days tadalafil 5 mg PO DAILY 90 days valsartan 160 mg PO DAILY HPI Comments Details: Carrillo is a pleasant 53-year-old male patient of Dr. Wei. He has a past medical history of recurrent urinary tract infections, hypertension, kidney disease, hyperlipidemia, gout, and type 2 diabetes. He presents to the office today for follow-up of his recurrent urinary tract infections. In discussion with the patient today reports to be doing and feeling well. He reports compliance with methenamine, vitamin-C, finasteride, and low-dose tadalafil as prescribed. He reports recently following up with Nephrology and is undergoing renal biopsy sometime next week. Of note, patient underwent an office cystoscopy approximately [address] Egan at which time recommendations were made for TURP. However, was initially started on finasteride. Previous workup has included a retroperitoneal ultrasound noting right kidney with no calculi, lesions, and or hydronephrosis noted. Multiple simple cyst the largest measuring 2.1 cm in the upper pole. No follow-up imaging is recommended per radiology report. Left kidney with no calculi or hydronephrosis. 0.4 cm simple cyst in the mid kidney. No follow-up imaging is recommended per radiology report. The bladder is well distended and normal. Bilateral ureteral jets are demonstrated. Pre void bladder volume is approximately 120 mL. Postvoid bladder volume is approximately 5 mL. The prostate measures 36 mL. PSAs: 09/09 2.4, 01/07 1.6 In office urinalysis results reviewed with the patient today. PVR 15 mL. He currently denies any bothersome urinary issues or concerns. He denies urinary urgency, urinary frequency, incontinence, nocturia, hematuria, dysuria, changes to urinary stream, flank pain, fever, and or chills. Discussed at length potential causes for recurrent urinary tract infections. Discussed at length importance of managing diabetes for urinary issues, erectile dysfunction, and overall health and well-being. [facility] Medical History Urinary tract infection Urethral discharge, with blood Benign hypertension with stage 3b chronic kidney disease Recurrent UTI Hypertension Hyperlipidemia Gout Glucose intolerance Diabetes mellitus type 2, noninsulin dependent Surgical History No pertinent past surgical history Review of Systems Const Reports no additional complaints Eyes Reports no additional complaints ENT Reports no additional complaints Card Reports as per HPI Resp Reports no additional complaints GI Reports no additional complaints Reports as per HPI Musc Reports no additional complaints Neuro Reports no additional complaints Psych Reports no additional complaints Endo Reports as per HPI Rip/Lymph Reports no additional complaints Aller/Immun Reports no additional complaints Physical Exam Const General: cooperative, healthy appearing, comfortable, no acute distress, well developed, alert and awake Orientation/consciousness: patient oriented x3 Resp Effort & Inspection: normal respiratory effort and able to speak in complete sentences Neuro General: patient oriented x3 Psych Appearance: grossly normal and well kempt Mental Status: mental status grossly normal Speech and movement: Normal speech and movement present and Clear speech present Affect: normal affect Attitude: cooperative Thought process: Normal thought process present Thought content: Normal thought content present Insight: Fair insight present (Psych) Judgement: Fair judgement present (Psych) Office Procedures Post Void Residual Post Residual Void Post Void Residual (PVR): 15 [id number] Void Residual by ultrasound Results AMB Urinalysis, Automated UA Leukoctes 15 Jarrell/uL Last Edit by Chrissy Toscano on 02/07/24 14:44 UA Nitrite Negative Last Edit by Chrissy Toscano on 02/07/24 14:44 UA Urobilinogen 0.2 mg/dL Last Edit by Chrissy Toscano on 02/07/24 14:44 UA Protein 300 mg/dL Last Edit by Chrissy Toscano on 02/07/24 14:44 UA pH 6.0 Last Edit by Chrissy Toscano on 02/07/24 14:44 UA Blood 10 Giovanni/uL Last Edit by Chrissy Toscano on 02/07/24 14:44 UA Specific Kirklin 1.015 Last Edit by Chrissy Toscano on 02/07/24 14:44 UA Ketone Negative Last Edit by Chrissy Toscano on 02/07/24 14:44 UA Bilirubin 0 mg/dL Last Edit by Chrissy Toscano on 02/07/24 14:44 UA Glucose 0 mg/dL Last Edit by Chrissy Toscano on 02/07/24 14:44 Results Reviewed Results Reviewed: Laboratory Last Values Urine pH (Auto) 6.0 02/07/24 14:42 Specific Kirklin (Auto) 1.015 02/07/24 14:42 Urine Protein (Auto) 300 mg/dL 02/07/24 14:42 Glucose (UA)(Auto) 0 mg/dL 02/07/24 14:42 Urine Ketones (Auto) Negative 02/07/24 14:42 Urine Blood (Auto) 10 Giovanni/uL 02/07/24 14:42 Urine Nitrite (Auto) Negative 02/07/24 14:42 Urine Bilirubin (Auto) 0 mg/dL 02/07/24 14:42 Urine Urobilinogen (Auto) 0.2 mg/dL 02/07/24 14:42 Leukocyte Esterase (Auto) 15 Jarrell/uL 02/07/24 14:42 Assessment & Plan Assessment & Plan (1) Recurrent urinary tract infection: Code(s): N39.0 - Urinary tract infection, site not specified Category: Medical (2) BPH (benign prostatic hyperplasia): Code(s): N40.0 - Benign prostatic hyperplasia without lower urinary tract symptoms Category: Medical (3) Erectile dysfunction: Code(s): N52.9 - Male erectile dysfunction, unspecified Category: Medical (4) Renal cyst: Code(s): N28.1 - Cyst of kidney, acquired Category: Medical Plan In office urinalysis results reviewed with the patient today; as noted above. PVR 15 mLs. Recent PSA results reviewed with the patient today; as noted above. Patient currently denies any bothersome urinary issues or concerns. He denies any UTI like symptoms Discussed TURP; risks and benefits Continue methenamine, vitamin-C, tadalafil, and finasteride as discussed and prescribed. Patient would like to await prostate procedure as he would like to focus on proteinuria and has upcoming renal biopsy next week. Follow-up in 3-4 months with PVR; or sooner with any issues, concerns, and or questions. Orders: Orders AMB Urinalysis Automated Today Z13.9 - Encounter for screening, unspecified AMB Post Void Residual by ultrasound Today N40.0 - Benign prostatic hyperplasia without lower urinary tract symptoms Patient Instructions: The patient had an opportunity to ask questions regarding the treatment plan. All questions were answered. Physical exam, labs, and imaging were discussed and reviewed in detail. As well as risks, benefits, and discussion of treatment choices. No major barriers to understanding were identified. The patient expressed understanding and agreement with the above treatment plan. The patient was made aware they should contact our office by phone for worsening of their current condition, the appearance of new symptoms, or with any questions or concerns. Compliance is encouraged with any medications and follow up testing that is ordered. It is a privilege to be allowed the opportunity to participate in? your urological care.? Again, if you have any questions or concerns If you have any questions or concerns please do not hesitate to contact me. The office is [phone]. This note is constructed using voice recognition software. While every effort has been made to ensure accuracy director of workforce development errors may have been included. Yours sincerely, ANTONI Finney Coding Level of Care Code Est Pt Level 3 (84436) Complex EM visit Add On G2211 Diagnoses Recurrent urinary tract infection N39.0 BPH (benign prostatic hyperplasia) N40.0 Erectile dysfunction N52.9 Renal cyst N28.1 CPT Codes Post Residual Void - PVR CPT Code: 29179-Slbi Void Residual by ultrasound ([id number])
== END 2024-02-07 15:30 | disposition home or self-care (01) ==
PROVIDERS: PCP Nurse Practitioner Family; Visit Provider Nurse Practitioner Family
DX: N39.0 Urinary tract infection, site not specified (principal); N40.0 Benign prostatic hyperplasia without lower urinary tract symptoms; N52.9 Male erectile dysfunction, unspecified; N28.1 Cyst of kidney, acquired; Z13.9 Encounter for screening, unspecified
CPT/HCPCS: 99213

== ENCOUNTER → 2024-02-07 14:18 | Outpatient (BNVA) | payer BC, MEDICAID, SELFPAY | PROVIDERS: PCP Nurse Practitioner Family; Visit Provider Nurse Practitioner Family | DX: N39.0 Urinary tract infection, site not specified (principal); N40.0 Benign prostatic hyperplasia without lower urinary tract symptoms; N52.9 Male erectile dysfunction, unspecified; N28.1 Cyst of kidney, acquired | CPT/HCPCS: 51798; 81003 ==

== ENCOUNTER 2024-02-14 10:56 | Outpatient (AMB) | payer BC, MEDICAID, SELFPAY ==
[2024-02-14 11:01] VITALS: BP 166/104; PULSE 87; O2SAT 96; BMI 28.8
--- NOTE | 2024-02-14 11:01 | HO.NEPHOV_ITS ---
Vital Signs 02/14/24 11:01 02/14/24 11:11 Height 6 ft 2 in Weight 224 lb BMI 28.8 BP 166/104 H 150/94 H Blood Pressure Location Lt brachial Lt brachial Position Sitting Sitting Pulse 87 Pulse Source Pulse Oximeter Pulse Oximetry (%) 96 Oxygen Delivery Method Room Air Intake Visit Reasons: 4 wks follow up/ Unable to reach Ios Developer Required: No Accompanied by: Self / Same As Patient Allergies losartan Allergy (Unknown, Verified 02/14/24 11:03) Stomach Upset allopurinol Adverse Reaction (Severe, Verified 02/14/24 11:03) Itching amlodipine Adverse Reaction (Intermediate, Verified 02/14/24 11:13) edema Medication List - Last Reconciled 02/14/24 by Efraín Arita MD ascorbic acid (vitamin C) 1 g PO DAILY 90 days atorvastatin 40 mg PO DAILY finasteride 5 mg PO DAILY 90 days glipizide 5 mg PO BID metformin 500 mg PO BID methenamine hippurate 1 g PO daily 90 days prednisone 1 mg PO DAILY sildenafil 100 mg PO .PRN 30 days tadalafil 5 mg PO DAILY 90 days valsartan 160 mg PO DAILY HPI Comments Details: .Carrillo is a pleasant 53-year-old man with history of longstanding hypertension and diabetes mellitus for about 5 years. He has a history of BPH and was evaluated by Urology. He has had history of recurrent UTIs. During evaluation he was found to have proteinuria. This referral has been made for evaluation of proteinuria Currently he is on losartan 50 mg along with hydrochlorothiazide 25 mg. The blood pressure has been suboptimal. However he has been monitoring his blood pressure at home. History of gout. He is allergic to allopurinol. He was recently treated with a course of prednisone. He has not on any uric acid lowering agents. It does not take any NSAIDs. No history of smoking. No history of any alcohol abuse. He has on a regular diet. Not on any salt restriction. 01/17/2024. Currently he has pain in his right knees. He feels that gout has returned. Recently completed a course of antibiotic for UTI. He is still having symptoms of dysuria. Losartan has been added recently and since then he has been having diarrhea. He feels he might be allergic to this medication. He has been monitoring blood pressure at home and blood pressure readings are still suboptimal. The workup revealed serum creatinine of 2.1 mg/dL and 24 urine collection revealed a protein excretion of more than 3 g with a creatinine clearance of 48 mL/minute. [facility] Medical History Urinary tract infection Urethral discharge, with blood Benign hypertension with stage 3b chronic kidney disease Recurrent UTI Hypertension Hyperlipidemia Gout Glucose intolerance Diabetes mellitus type 2, noninsulin dependent Surgical History No pertinent past surgical history Physical Exam Vital Signs: Last Vital Signs Pulse 87 02/14/24 11:01 BP 150/94 H 02/14/24 11:11 Pulse Ox 96 02/14/24 11:01 Oxygen Delivery Method Room Air 02/14/24 11:01 BMI result Body Mass Index 28.8 Const General: comfortable; No acute distress Orientation/consciousness: patient oriented x3 Eyes General: appearance normal, both eyes and all related structures Visual Malloy: normal visual malloy by confrontation Neck Neck: Yes supple and Yes no JVD Resp Effort & Inspection: normal respiratory effort and respiratory effort not decreased Auscultation: rhonchi Cardio Palpation: no palpable S3 and no palpable S4 Heart sounds: no rubs GI Inspection: Yes normal to inspection Palpation (GI): Soft to palpation Percussion: Yes normal to percussion Auscultation: normal bowel sounds General: Yes no CVA tenderness Back/Spine/Pelvis Back: no CVA tenderness Skin General skin exam: no petechiae and no purpura Neuro General: patient oriented x3 and no focal motor deficits Extrem General: No clubbing and No edema Results Reviewed Nephrology Results: Sodium 143 mmol/L (135-145) 01/03/24 Potassium 3.5 mmol/L (3.3-5.1) 01/03/24 Chloride 113 mmol/L (96-108) H 01/03/24 Carbon Dioxide 23 mmol/L (22-29) 01/03/24 BUN 36 mg/dL (9-16) H 01/03/24 Creatinine 2.14 mg/dL (0.5-1.4) H 01/09/24 Calcium 9.2 mg/dL (8.4-10.2) 01/03/24 Urine Protein 300 (3+) mg/dL (Neg-Trace) H 01/17/24 Urine Creatinine 100.53 mg/dL 01/03/24 Assessment & Plan Assessment & Plan (1) CKD (chronic kidney disease): Code(s): N18.9 - Chronic kidney disease, unspecified Category: Medical (2) Proteinuria: Code(s): R80.9 - Proteinuria, unspecified Category: Medical (3) Urinary tract infection: Code(s): N39.0 - Urinary tract infection, site not specified Category: Medical (4) Diabetes mellitus type 2, noninsulin dependent: Code(s): E11.9 - Type 2 diabetes mellitus without complications Category: Medical (5) Gout: Code(s): M10.9 - Gout, unspecified Category: Medical (6) Renal cyst: Code(s): N28.1 - Cyst of kidney, acquired Category: Medical Plan . Middle-aged man with longstanding hypertension and diabetes mellitus with proteinuria by dipstick. Proteinuria Although this could be due to underlying diabetic nephropathy, Nondiabetic causes should be ruled out. Especially since he says that he has had diabetes for just 5 years. Serologies have been negative thus far. Differential diagnosis would include diabetic nephropathy, FSGS,. Membranous versus others He would benefit from a kidney biopsy for a definite diagnosis. I have discussed this with him. He has agreed kidney biopsy scheduled for 02/15/24 Chronic kidney disease -as above Goal is to slow the progression of renal disease. Continue overt nephrotoxic agents. Maximize KVNG inhibition for renal protection. He will benefit from SGLT2 inhibitors Exact baseline creatinine is unknown at this time. Recent serum creatinine was 2.14. This may very well be his baseline. Hypertension Blood pressure is suboptimal. Since he is intolerant to losartan I switched it to valsartan 160 mg daily. I am not adding HCTZ due to history of gout. ADD HYDRALAZINE 10 mg BID- Titrate dose based on BP And tolerance ( 02/14/24) Goal is to maintain blood pressure less than 130/80. Encouraged him to stay on low-sodium diet. Diabetes mellitus Goal is to maintain A1c less than 7%. Gout He has had multiple episodes of gout in the past. Uric acid level was normal at 5.0 We will not add Uloric at this time. await Rhe referral Encouraged him to stay on low purine diet. Recurrent UTI. Follow up with Urology Orders: Orders Basic Metabolic Panel 1 Week N18.9 - Chronic kidney disease, unspecified Complete Blood Count Auto Diff 1 Week N18.9 - Chronic kidney disease, unspecified Medications: New hydralazine 10 mg PO BID 60 tabs 0RF Coding Level of Care Code Est Pt Level 4 (59562) Diagnoses CKD (chronic kidney disease) N18.9 Proteinuria R80.9 Urinary tract infection N39.0 Diabetes mellitus type 2, noninsulin dependent E11.9 Gout M10.9 Renal cyst N28.1
[2024-02-14 11:11] VITALS: BP 150/94
== END 2024-02-14 11:16 | disposition home or self-care (01) ==
PROVIDERS: PCP Internal Medicine; Visit Provider Internal Medicine Hypertension Specialist
DX: N18.9 Chronic kidney disease, unspecified (principal); R80.9 Proteinuria, unspecified; N39.0 Urinary tract infection, site not specified; E11.9 Type 2 diabetes mellitus without complications; M10.9 Gout, unspecified; N28.1 Cyst of kidney, acquired
CPT/HCPCS: 99214

== ENCOUNTER → 2024-02-14 10:56 | Outpatient (BNVA) | payer BC, MEDICAID, SELFPAY | PROVIDERS: PCP Internal Medicine; Visit Provider Internal Medicine Hypertension Specialist | DX: N39.0 Urinary tract infection, site not specified (principal); E11.9 Type 2 diabetes mellitus without complications; R80.9 Proteinuria, unspecified; M10.9 Gout, unspecified ==

== ENCOUNTER 2024-02-15 08:12 | Day surgery (SDC) | payer BC, SELFPAY ==
--- NOTE | ~2024-02-15 | CT_ITS ---
53-year-old man with proteinuria and diabetes. Nephrology requests a kidney biopsy. PROCEDURES: 1. Limited preprocedure CT of the abdomen. Permanent images saved in PACS. CLINICIANS: Emmanuel Shook PA-C MEDICATIONS: -Versed 2 mg, Fentanyl 100 mcg, and lidocaine 1% 10 mL SQ -Antibiotics: None -For additional details, please see nursing flowsheet. MODERATE SEDATION TIME: 45 min PROCEDURE NOTE: The procedure, risks, benefits, and alternatives were carefully explained to the patient and written informed consent was obtained. The patient was placed prone on the CT table. A timeout was performed. A limited CT of the abdomen was performed to localize the right kidney and choose appropriate needle entry and trajectory. The patient was prepped and draped in usual sterile fashion. The patient was hypertensive prior to the procedure. A combination of IV hydralazine, labetalol, Versed and fentanyl were given, however, the patient's blood pressure remained above 160/90. The procedure was therefore aborted due to the increased risk of bleeding from his hypertension. The patient was transferred to the post anesthesia care unit for moderate sedation recovery. CT/CT biopsy renal RT Impression: CT-guided renal biopsy not performed due to persistent hypertension despite multiple IV medications given prior and during the procedure. The patient's bioassayist was contacted regarding today's findings. The patient will be rescheduled in the upcoming weeks once blood pressure is optimized for this procedure. This procedure was performed by Emmanuel Shook PA-C and supervised by Dr. Newberry.
[2024-02-15 09:11] VITALS: BMI 28.8
[2024-02-15 09:16] LABS: MANUAL DIFF FLAG NO
[2024-02-15 09:17] LABS: Basophils Percent Auto 0.6 % (0-2); Eosinophils Absolute Auto 0.2 X10*3/uL (0.0-0.4); Eosinophils Percent Auto 2.4 % (0-4); Hematocrit 33.6 % (42.0-52.0); Hemoglobin 11.6 g/dl (14.0-18.0); Imm Gran Abs Auto 0.01 X10*3/uL (0.00-0.03); Imm Gran Pct Auto 0.1 % (0.0-0.4); Lymphocytes Absolute Auto 1.6 X10*3/uL (1.2-4.9); Lymphocytes Percent Auto 22.1 % (20-40); Mean Corpuscular HGB Conc 34.5 g/dl (31.0-36.0); Mean Corpuscular Hemoglobin 27.7 pg (27.0-33.0); Mean Corpuscular Volume 80.2 fL (80.0-98.0); Mean Platelet Volume 8.9 fL (9.4-12.4); Monocytes Absolute Auto 0.6 X10*3/uL (0.1-1.2); Neutrophils Absolute Auto 4.8 x10*3/uL (2.0-8.3); Neutrophils Percent Auto 66.8 % (45-73); Platelet Count 268 X10*3/uL (160-400); Red Blood Count 4.19 X10*6/uL (4.60-5.80); Red Cell Distribution Width 14.8 % (11.0-16.0); White Blood Count 7.1 X10*3/uL (4.8-10.8)
[2024-02-15 09:20] LABS: Glucose, Whole Blood 92 mg/dL (60-115)
[2024-02-15 09:27] LABS: INTERNATIONAL NORM RATIO 0.8 (0.9-1.1); Prothrombin Time 9.7 SEC (11.1-13.3)
[2024-02-15 09:29] LABS: Partial Thromboplastin Time 33.6 SEC (26.0-36.8)
[2024-02-15 10:05] VITALS: BP 173/110
[2024-02-15] MEDS: hydrALAZINE HCl 20 MG/ML VIAL 10 MG IVPUSH (10:05)
--- NOTE | 2024-02-15 10:32 | MHC.SHP ---
Pre-Procedural Eval Section A - 24 Hr Update-Section A only Date of Service: 02/15/24 Section B - Complete if H&P > 30 days Chief Complaint: diabetes, proteinuria Details of Present Illness: 53 y/o man with proteinuria, CKD and DM. Nephrology requests a kidney biopsy Relevant Family History (Specify if Yes): No Relevant Social History: None Present Medications: see Short Stay Collaborative assessment Medical History: Significant History History of Previous Operations: No relevant previous surgery Allergies: Allergies Allergy/AdvReac Type Severity Reaction Status Date / Time losartan Allergy Unknown Stomach Verified 02/15/24 09:11 Upset allopurinol AdvReac Severe Itching Verified 02/15/24 09:11 amlodipine AdvReac Intermediate edema Verified 02/15/24 09:11 Review of Systems Sugical H&P ROS: Negative: Cardiovascular, Respiratory and Neurological Exam Surgical H&P Exam: Normal: Heart, Normal: Lungs, Normal: Abdomen, Normal: Skin and Normal: Neurological Plan 53 y/o man with proteinuria and CKD -CT nontargeted renal biopsy Time Spent With Patient Time: Total time managing care of this patient today ____ minutes.
[2024-02-15 11:28] VITALS: BP 153/100; PULSE 85; RESP 16; TEMP 36.4; O2SAT 99
[2024-02-15 11:41] VITALS: BP 163/107; PULSE 85; RESP 16; TEMP 36.4; O2SAT 99
== END 2024-02-15 11:48 | disposition home or self-care (01) ==
PROVIDERS: Physician Assistant Surgical; Radiology Vascular & Interventional Radiology; PCP Internal Medicine; Visit Provider Internal Medicine Hypertension Specialist
DX: I12.9 Hypertensive chronic kidney disease with stage 1 through stage 4 chronic kidney disease, or unspecified chronic kidney disease (principal); E11.22 Type 2 diabetes mellitus with diabetic chronic kidney disease; N18.32 Chronic kidney disease, stage 3b; R80.9 Proteinuria, unspecified; R30.0 Dysuria; Z87.440 Personal history of urinary (tract) infections; N28.1 Cyst of kidney, acquired; E74.39 Other disorders of intestinal carbohydrate absorption; M10.9 Gout, unspecified; E78.5 Hyperlipidemia, unspecified; Z79.84 Long term (current) use of oral hypoglycemic drugs; Z79.899 Other long term (current) drug therapy
CPT/HCPCS: 36415; 50200; 77012; 82947; 85025; 85610; 85730; 86850; 86900; 86901; J0360; J1920; J2250; J2310; J3010

== ENCOUNTER → 2024-02-15 09:36 | Outpatient (BNV) | payer BC, SELFPAY | PROVIDERS: PCP Internal Medicine; Visit Provider Physician Assistant Surgical | DX: R80.9 Proteinuria, unspecified (principal); E11.9 Type 2 diabetes mellitus without complications | CPT/HCPCS: 50200; 77012 ==

== ENCOUNTER 2024-03-11 08:19 | Day surgery (SDC) | payer BC, SELFPAY ==
--- NOTE | ~2024-03-11 | CT_ITS ---
PROCEDURE: CT GUIDED BIOPSY, KIDNEY CLINICAL INFORMATION: 53-year-old man with proteinuria and diabetes. Nephrology requests a kidney biopsy. PROCEDURES: 1. Limited preprocedure CT of the abdomen. Permanent images saved in PACS. CLINICIANS: Emmanuel Shook PA-C MEDICATIONS: -Versed, Fentanyl, and lidocaine 1% 10 mL SQ -Antibiotics: None -For additional details, please see nursing flowsheet. MODERATE SEDATION TIME: 60 min Radiation dose: DLP 177 mgycm PROCEDURE NOTE: The procedure, risks, benefits, and alternatives were carefully explained to the patient and written informed consent was obtained. The patient was placed prone on the CT table. A timeout was performed. A limited CT of the abdomen was performed to localize the right kidney and choose appropriate needle entry and trajectory. The patient was prepped and draped in usual sterile fashion. The patient was hypertensive prior to the procedure. A combination of IV hydralazine, labetalol, Versed and fentanyl were given. The needle was advanced percutaneously into the kidney in anticipation of performing the biopsy. However, the patient's blood pressure remained above the threshold. The procedure was therefore aborted due to the increased risk of bleeding from his hypertension. The patient was transferred to the post anesthesia care unit for moderate sedation recovery. CT/CT biopsy renal RT Impression: CT-guided renal biopsy not performed due to persistent hypertension despite multiple IV medications given prior and during the procedure. The patient's supervisor power reactor was contacted regarding today's findings. The patient will be rescheduled in the upcoming weeks once blood pressure is optimized for this procedure. This procedure was performed by Emmanuel Shook PA-C and supervised by Dr. greco. Electronically signed by: Delgado Greco MD 03/21/2024 01:02 PM EDT
[2024-03-11 09:14] VITALS: BMI 29.0
[2024-03-11 09:22] LABS: Glucose, Whole Blood 120 mg/dL (60-115)
--- NOTE | 2024-03-11 10:01 | MHC.SHP ---
Pre-Procedural Eval Section A - 24 Hr Update-Section A only Date of Service: 03/11/24 The patient is an INPATIENT: No Changes since office visit: Yes Changes in Medication and Yes Patient answered all questions The patient has been examined within 24 hours of the surgical procedure. The History & Physical has been completed within 30 days and I have reviewed it.: Yes Section B - Complete if H&P > 30 days Chief Complaint: RENAL, DM Allergies: Allergies Allergy/AdvReac Type Severity Reaction Status Date / Time losartan Allergy Unknown Stomach Verified 03/11/24 08:36 Upset allopurinol AdvReac Severe Itching Verified 03/11/24 08:36 amlodipine AdvReac Intermediate edema Verified 03/11/24 08:36 Plan I have reviewed the history and physical and performed a pertinent physical examination on my patient. No changes have occurred unless specified. Time Spent With Patient Time: Total time managing care of this patient today ____ minutes.
[2024-03-11] MEDS: hydrALAZINE HCl 20 MG/ML VIAL IVPUSH (10:05)
[2024-03-11 12:00] VITALS: BP 148/94; PULSE 85; RESP 16; TEMP 36.1; O2SAT 98
[2024-03-11 12:15] VITALS: BP 147/95; PULSE 81; RESP 16; O2SAT 97
== END 2024-03-11 12:35 | disposition home or self-care (01) ==
LOC: HO.SSS 08:20
PROVIDERS: Physician Assistant Surgical; PCP Internal Medicine; Visit Provider Internal Medicine Hypertension Specialist
DX: I12.9 Hypertensive chronic kidney disease with stage 1 through stage 4 chronic kidney disease, or unspecified chronic kidney disease (principal); Z53.09 Procedure and treatment not carried out because of other contraindication; E11.22 Type 2 diabetes mellitus with diabetic chronic kidney disease; N18.32 Chronic kidney disease, stage 3b; E78.5 Hyperlipidemia, unspecified; N39.0 Urinary tract infection, site not specified; R80.9 Proteinuria, unspecified; N28.1 Cyst of kidney, acquired; M10.9 Gout, unspecified; Z79.84 Long term (current) use of oral hypoglycemic drugs; Z79.899 Other long term (current) drug therapy; Z79.52 Long term (current) use of systemic steroids; Z88.8 Allergy status to other drugs, medicaments and biological substances
CPT/HCPCS: 50200; 77012; 82947; 86850; 86900; 86901; 99152; 99153; J0360; J1920; J2250; J2310; J3010

== ENCOUNTER → 2024-03-11 10:34 | Outpatient (BNV) | payer BC, SELFPAY | PROVIDERS: PCP Internal Medicine; Visit Provider Student in an Organized Health Care Education/Training Program | DX: E11.9 Type 2 diabetes mellitus without complications (principal); R80.9 Proteinuria, unspecified | CPT/HCPCS: 50200; 77012 ==

== ENCOUNTER 2024-03-27 13:43 | Outpatient (AMB) | payer BC, SELFPAY ==
[2024-03-27 13:48] VITALS: BP 150/100; PULSE 87; O2SAT 98; BMI 29.1
--- NOTE | 2024-03-27 13:48 | HO.NEPHOV_ITS ---
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 Accompanied by: Self / Same As Patient Allergies losartan Allergy (Unknown, Verified 03/27/24 13:50) Stomach Upset allopurinol Adverse Reaction (Severe, Verified 03/27/24 13:50) Itching amlodipine Adverse Reaction (Intermediate, Verified 03/27/24 13:50) edema Medication List - Last Reconciled 03/27/24 by Efraín Arita MD alprazolam (Xanax) 1 mg PO DAILY ascorbic acid (vitamin C) 1 g PO DAILY 90 days atorvastatin 40 mg PO DAILY finasteride 5 mg PO DAILY 90 days glipizide 5 mg PO BID hydralazine 50 mg PO BID metformin 500 mg PO BID methenamine hippurate 1 g PO daily 90 days prednisone 1 mg PO DAILY sildenafil 100 mg PO .PRN 30 days tadalafil 5 mg PO DAILY 90 days valsartan 160 mg PO DAILY HPI Comments Details: .Carrillo is a pleasant 53-year-old man with history of longstanding hypertension and diabetes mellitus for about 5 years. He has a history of BPH and was evaluated by Urology. He has had history of recurrent UTIs. During evaluation he was found to have proteinuria. This referral has been made for evaluation of proteinuria Currently he is on losartan 50 mg along with hydrochlorothiazide 25 mg. The blood pressure has been suboptimal. However he has been monitoring his blood pressure at home. History of gout. He is allergic to allopurinol. He was recently treated with a course of prednisone. He has not on any uric acid lowering agents. It does not take any NSAIDs. No history of smoking. No history of any alcohol abuse. He has on a regular diet. Not on any salt restriction. 01/17/2024. Currently he has pain in his right knees. He feels that gout has returned. Recently completed a course of antibiotic for UTI. He is still having symptoms of dysuria. Losartan has been added recently and since then he has been having diarrhea. He feels he might be allergic to this medication. He has been monitoring blood pressure at home and blood pressure readings are still suboptimal. The workup revealed serum creatinine of 2.1 mg/dL and 24 urine collection revealed a protein excretion of more than 3 g with a creatinine clearance of 48 mL/minute. 03/25/2024. He was scheduled for kidney biopsy for the 2nd time however procedure was canceled because his blood pressure was 140/90 mm Hg. It is unfortunate that posterior was canceled for blood pressure of 140/90. [facility] Medical History Urinary tract infection Urethral discharge, with blood Benign hypertension with stage 3b chronic kidney disease Recurrent UTI Hypertension Hyperlipidemia Gout Glucose intolerance Diabetes mellitus type 2, noninsulin dependent Surgical History No pertinent past surgical history Physical Exam Vital Signs: Last Vital Signs Pulse 87 03/27/24 13:48 BP 150/100 H 03/27/24 13:48 Pulse Ox 98 03/27/24 13:48 Oxygen Delivery Method Room Air 03/27/24 13:48 BMI result Body Mass Index 29.1 Const General: comfortable; No acute distress Orientation/consciousness: patient oriented x3 Eyes General: appearance normal, both eyes and all related structures Visual Malloy: normal visual malloy by confrontation Neck Neck: Yes supple and Yes no JVD Resp Effort & Inspection: normal respiratory effort and respiratory effort not decreased Auscultation: rhonchi Cardio Palpation: no palpable S3 and no palpable S4 Heart sounds: no rubs GI Inspection: Yes normal to inspection Palpation (GI): Soft to palpation Percussion: Yes normal to percussion Auscultation: normal bowel sounds General: Yes no CVA tenderness Back/Spine/Pelvis Back: no CVA tenderness Skin General skin exam: no petechiae and no purpura Neuro General: patient oriented x3 and no focal motor deficits Extrem General: No clubbing and No edema Results Reviewed Nephrology Results: Hgb 11.6 g/dl (14.0-18.0) L 02/15/24 WBC 7.1 X10*3/uL (4.8-10.8) 02/15/24 Plt Count 268 X10*3/uL (160-400) 02/15/24 Sodium 143 mmol/L (135-145) 06/19/24 Potassium 3.5 mmol/L (3.3-5.1) 01/03/24 Chloride 113 mmol/L (96-108) H 01/03/24 Carbon Dioxide 23 mmol/L (22-29) 01/03/24 BUN 36 mg/dL (9-16) H 01/03/24 Creatinine 2.14 mg/dL (0.5-1.4) H 01/09/24 Calcium 9.2 mg/dL (8.4-10.2) 01/03/24 Urine Protein 300 (3+) mg/dL (Neg-Trace) H 01/17/24 Urine Creatinine 100.53 mg/dL 01/03/24 Assessment & Plan Assessment & Plan (1) CKD (chronic kidney disease): Code(s): N18.9 - Chronic kidney disease, unspecified Category: Medical (2) Proteinuria: Code(s): R80.9 - Proteinuria, unspecified Category: Medical (3) Urinary tract infection: Code(s): N39.0 - Urinary tract infection, site not specified Category: Medical (4) Diabetes mellitus type 2, noninsulin dependent: Code(s): E11.9 - Type 2 diabetes mellitus without complications Category: Medical (5) Gout: Code(s): M10.9 - Gout, unspecified Category: Medical (6) Renal cyst: Code(s): N28.1 - Cyst of kidney, acquired Category: Medical Plan . Middle-aged man with longstanding hypertension and diabetes mellitus with proteinuria by dipstick. Proteinuria Although this could be due to underlying diabetic nephropathy, Nondiabetic causes should be ruled out. Especially since he says that he has had diabetes for just 5 years. Serologies have been negative thus far. Differential diagnosis would include diabetic nephropathy, FSGS,. Membranous versus others He would benefit from a kidney biopsy for a definite diagnosis. I have discussed this with him. He has agreed kidney biopsy reschedule. We will referred to Dr. Ishmael Barahona Chronic kidney disease -as above Goal is to slow the progression of renal disease. Continue overt nephrotoxic agents. Maximize KVNG inhibition for renal protection. He will benefit from SGLT2 inhibitors Exact baseline creatinine is unknown at this time. Recent serum creatinine was 2.14. This may very well be his baseline. Hypertension Blood pressure is suboptimal. Since he is intolerant to losartan I switched it to valsartan 160 mg daily. I am not adding HCTZ due to history of gout. Increase hydralazine to 50 mg t.i.d. Goal is to maintain blood pressure less than 130/80. Encouraged him to stay on low-sodium diet. Diabetes mellitus Goal is to maintain A1c less than 7%. Gout He has had multiple episodes of gout in the past. Uric acid level was normal at 5.0 We will not add Uloric at this time. await Rhem referral Encouraged him to stay on low purine diet. Recurrent UTI. Repeat culture ordered Follow up with Urology Orders: Orders Complete Blood Count Auto Diff Today N18.9 - Chronic kidney disease, u nspecified Prothrombin Time INR Today N18.9 - Chronic kidney disease, unspecified Urine Culture Today N39.0 - Urinary tract infection, site not specified CT biopsy renal RT Today N18.9 - Chronic kidney disease, unspecified Basic Metabolic Panel Today N18.9 - Chronic kidney disease, unspecified Partial Thromboplastin Time Today N18.9 - Chronic kidney disease, unspecified Medications: New hydralazine 50 mg PO TID 270 tabs 1RF Discontinued alprazolam (Xanax) Discontinued Reason: Doctor's Order 1 mg PO DAILY 3 tabs 0RF take 1 hour before biopsy Coding Level of Care Code Est Pt Level 4 (69268) Complex EM visit Add On [id number] Diagnoses CKD (chronic kidney disease) N18.9 Proteinuria R80.9 Urinary tract infection N39.0 Diabetes mellitus type 2, noninsulin dependent E11.9 Gout M10.9 Renal cyst N28.1
== END 2024-03-27 14:27 | disposition home or self-care (01) ==
PROVIDERS: PCP Internal Medicine; Visit Provider Internal Medicine Hypertension Specialist
DX: N18.9 Chronic kidney disease, unspecified (principal); R80.9 Proteinuria, unspecified; N39.0 Urinary tract infection, site not specified; E11.9 Type 2 diabetes mellitus without complications; M10.9 Gout, unspecified; N28.1 Cyst of kidney, acquired
CPT/HCPCS: 99214

== ENCOUNTER → 2024-03-27 13:43 | Outpatient (BNVA) | payer BC, SELFPAY | PROVIDERS: PCP Internal Medicine; Visit Provider Internal Medicine Hypertension Specialist ==

== ENCOUNTER 2024-03-28 14:23 | Outpatient (REF) | payer BC, SELFPAY ==
[2024-03-28 16:10] LABS: Appearance Urine Clear; Color Urine Yellow; Glucose Urine UA Negative (Negative); Leukocyte Esterase Urine Trace (Negative); Nitrite Urine Negative (Negative); PH 5.5 (5.0-9.0); Specific Gravity - Urine 1.015 (1.005-1.025); UMIC TRIGGER UA YES; Urine Blood Negative (Negative); Urine Ketones Negative (Negative); Urine Protein 300 (3+) mg/dL (Neg-Trace)
[2024-03-28 16:12] LABS: INTERNATIONAL NORM RATIO 0.8 (0.9-1.1); Prothrombin Time 10.1 SEC (11.1-13.3)
[2024-03-28 16:13] LABS: Bacteria Urine 1+ (None Seen); Hyaline Casts Urine 0-2 /LPF (0-2); RBC Urine 0-2 /HPF (0-2); WBC Urine 21-50 /HPF (0-5)
[2024-03-28 16:15] LABS: Partial Thromboplastin Time 33.7 SEC (26.0-36.8)
[2024-03-28 16:16] LABS: MANUAL DIFF FLAG NO
[2024-03-28 16:23] LABS: Basophils Percent Auto 0.4 % (0-2); Eosinophils Absolute Auto 0.2 X10*3/uL (0.0-0.4); Eosinophils Percent Auto 2.7 % (0-4); Hematocrit 33.7 % (42.0-52.0); Hemoglobin 11.3 g/dl (14.0-18.0); Imm Gran Abs Auto 0.02 X10*3/uL (0.00-0.03); Imm Gran Pct Auto 0.3 % (0.0-0.4); Lymphocytes Absolute Auto 2.1 X10*3/uL (1.2-4.9); Lymphocytes Percent Auto 30.4 % (20-40); Mean Corpuscular HGB Conc 33.5 g/dl (31.0-36.0); Mean Corpuscular Hemoglobin 26.9 pg (27.0-33.0); Mean Corpuscular Volume 80.2 fL (80.0-98.0); Monocytes Absolute Auto 0.5 X10*3/uL (0.1-1.2); Monocytes Percent Auto 7.5 % (2-11); Neutrophils Absolute Auto 4.1 x10*3/uL (2.0-8.3); Neutrophils Percent Auto 58.7 % (45-73); Platelet Count 269 X10*3/uL (160-400); Red Cell Distribution Width 14.3 % (11.0-16.0); White Blood Count 6.9 X10*3/uL (4.8-10.8)
[2024-03-28 16:28] LABS: Anion Gap 15 (12-20); Blood Urea Nitrogen 40 mg/dL (9-16); Calcium 9.1 mg/dL (8.4-10.2); Carbon Dioxide 23 mmol/L (22-29); Chloride 110 mmol/L (96-108); Estimated Glomerular Filt Rate 26; Glucose Random 131 mg/dL (60-115); Potassium 3.5 mmol/L (3.3-5.1); Sodium 144 mmol/L (135-145)
== END 2024-03-28 14:24 | disposition home or self-care (01) ==
LOC: HO.HKASLDS 14:23
PROVIDERS: Visit Provider Internal Medicine Hypertension Specialist
DX: N18.9 Chronic kidney disease, unspecified (principal); N39.0 Urinary tract infection, site not specified
CPT/HCPCS: 36415; 80048; 81001; 85025; 85610; 85730; 87086; 87088; 87186

== ENCOUNTER → 2024-04-02 12:53 | Outpatient (BNVA) | payer BC, MEDICAID, SELFPAY | PROVIDERS: PCP Internal Medicine; Visit Provider Student in an Organized Health Care Education/Training Program ==

== ENCOUNTER 2024-04-02 14:15 | Outpatient (REF) | payer BC, SELFPAY ==
[2024-04-02 17:51] LABS: Alanine Aminotransferase 15 U/L (0-40); Albumin Level 4.1 g/dL (3.5-5.0); Alkaline Phosphatase 66 U/L (39-117); Anion Gap 13 (12-20); Aspartate Amino Transferase 13 U/L (5-37); Bilirubin Total 0.4 mg/dL (0.0-1.0); Blood Urea Nitrogen 37 mg/dL (9-16); Calcium 9.3 mg/dL (8.4-10.2); Carbon Dioxide 23 mmol/L (22-29); Chloride 113 mmol/L (96-108); Estimated Glomerular Filt Rate 29; Glucose Random 78 mg/dL (60-115); Potassium 3.7 mmol/L (3.3-5.1); Sodium 145 mmol/L (135-145); Total Protein 7.2 g/dL (6.5-8.0); Uric Acid 5.5 mg/dL (3.4-7.0)
== END 2024-04-02 14:16 | disposition home or self-care (01) ==
LOC: HO.HKASLDS 14:15
PROVIDERS: Visit Provider Student in an Organized Health Care Education/Training Program
DX: M10.9 Gout, unspecified (principal)
CPT/HCPCS: 36415; 80053; 84550

== ENCOUNTER 2024-04-08 14:43 | Outpatient (AMB) | payer BC, SELFPAY ==
--- NOTE | 2024-04-08 14:47 | A.OFFVIS_ITS ---
Vital Signs 04/08/24 14:50 Height 6 ft 2 in Weight 233 lb BMI 29.9 Pulse 89 Pulse Source Pulse Oximeter Temp 98.9 F Temp Source Oral Pulse Oximetry (%) 99 Oxygen Delivery Method Room Air Intake Visit Reasons: Chronic UTI Allergies losartan Allergy (Unknown, Verified 04/08/24 14:51) Stomach Upset allopurinol Adverse Reaction (Severe, Verified 04/08/24 14:51) Itching amlodipine Adverse Reaction (Intermediate, Verified 04/08/24 14:51) edema HPI HPI Chronic UTI: Details: He presents for concern over failure to clear ESBL from urine. He has had protein in urine and is scheduled for renal biopsy that he was not able to do yet due to hypertension. He sees Renal here. He has BPH,HTN and DM for last five years. He said he has foamy urine as well as musty odor to urine and thinks that means he has a UTI. He has no dysuria or fever and has never had urinary sepsis. He has no leukocytosis. He has had ESBL E coli cultured from urine on 01/16 as well as 03/28. He has received fosfomycin he believes in past. [facility] Medical History (Updated 04/10/24 @ 14:55 by Ashley Lackey MD) Bacteriuria Urinary tract infection Urethral discharge, with blood Benign hypertension with stage 3b chronic kidney disease Recurrent UTI Hypertension Hyperlipidemia Gout Glucose intolerance Diabetes mellitus type 2, noninsulin dependent Surgical History No pertinent past surgical history Family History Father Diabetes CHF (congestive heart failure) Hypertension Mother Diabetes Social History Household Members: None Housing: Apartment Alcohol intake: current Comment: Ocassionally Patient Tobacco Use Status: Never used Tobacco Review of Systems Const All systems reviewed & are unremarkable except as noted in HPI and below Physical Exam Vital Signs: Last Vital Signs Temp 98.9 F 04/08/24 14:50 Pulse 89 04/08/24 14:50 Pulse Ox 99 04/08/24 14:50 Oxygen Delivery Method Room Air 04/08/24 14:50 BMI result Body Mass Index 29.9 Const General: cooperative HEENT Head: Yes normal to inspection Face and sinus: Yes normal facial exam Mouth: Normal oral and palatal mucosa present Teeth and gingiva: dentition normal Eyes General: appearance normal, both eyes and all related structures Pupils: Equal, round and reactive pupils present Resp Effort & Inspection: normal respiratory effort Cardio Rate: regular rate Rhythm: regular rhythm GI Palpation (GI): Soft to palpation and nontender General: Yes no CVA tenderness Back/Spine/Pelvis Back: no CVA tenderness Skin General skin exam: no rashes or lesions noted Neuro General: moves all extremities Cranial nerves: Yes Equal, round and reactive pupils present Extrem General: Yes normal to inspection Psych Appearance: grossly normal Assessment & Plan Assessment & Plan (1) CKD (chronic kidney disease): Code(s): N18.9 - Chronic kidney disease, unspecified Category: Medical Plan: na (2) Diabetes mellitus type 2, noninsulin dependent: Code(s): E11.9 - Type 2 diabetes mellitus without complications Category: Medical (3) Bacteriuria: Comment: It appears he has chronic bacteriuria with no symptoms of urinary tract infection. This is colonization at this time, an incidental finding Code(s): R82.71 - Bacteriuria Category: Medical Plan: Unless develops symptoms of back or abdominal discomfort or fever or hematuria would not check urine culture or treat. Can see back prn need. Plan na Coding Level of Care Code New Pt Level 3 (59471) Diagnoses CKD (chronic kidney disease) N18.9 Diabetes mellitus type 2, noninsulin dependent E11.9 Bacteriuria R82.71
[2024-04-08 14:50] VITALS: PULSE 89; TEMP 37.2; O2SAT 99; BMI 29.9
== END 2024-04-08 15:32 | disposition home or self-care (01) ==
LOC: HO.HID 14:43
PROVIDERS: PCP Internal Medicine; Visit Provider Internal Medicine
DX: N18.9 Chronic kidney disease, unspecified (principal); E11.9 Type 2 diabetes mellitus without complications; R82.71 Bacteriuria
CPT/HCPCS: 99203

== ENCOUNTER → 2024-04-08 14:43 | Outpatient (BNVA) | payer BC, SELFPAY | PROVIDERS: PCP Internal Medicine; Visit Provider Internal Medicine ==

== ENCOUNTER 2024-04-10 11:22 | Day surgery (SDC) | payer BC, SELFPAY ==
[2024-04-10] VITALS (11 sets, daily range): BP systolic 141–159; BP diastolic 83–105; PULSE 80–98; RESP 14–18; TEMP 36.2–36.6; O2SAT 98–100; BMI 28.7
--- NOTE | ~2024-04-10 | CT_ITS ---
History: Chronic kidney disease Procedure performed: CT-guided core biopsy of right kidney Physician: Jenn Barahona MD Anesthesia: IV moderate sedation with intravenous fentanyl and versed was administered under my direct supervision with continuous physiologic monitoring for 30 minutes. Local anesthesia with 10 mL 1% lidocaine was additionally administered. Specimen: [id number] core specimens of right kidney Drain: None Estimated blood loss: Minimal Current medications: None Procedure in detail: Informed and written consent was obtained and placed in the chart. The patient was positioned prone on the CT examination table. Preliminary CT scan showed that the right kidney had a thicker cortex and was therefore felt to be safer for biopsy. The overlying skin was prepped and draped. We marked an appropriate site for access. 1% lidocaine was injected subcutaneously and extended towards the right kidney. A small incision was made in the skin with a #11 blade. Through the incision and under progressive CT guidance, a 17-gauge coaxial needle was advanced to the periphery of the right renal cortex. The tip was placed just into the renal cortex. We then obtained three 18-gauge core specimens. As we felt the patient was high risk for bleeding given his poorly controlled blood pressure, Gelfoam slurry was administered into the 17-gauge coaxial needle prior to removing it. We then obtained a delayed CT scan confirming that there was no active hemorrhage. A sterile dressing was applied. Summary: Successful CT-guided core biopsy of the right kidney for medical renal disease as described above. Electronically signed by: Barak Barahona MD 04/10/2024 02:48 PM EDT
--- NOTE | 2024-04-10 12:50 | PC.NURSE ---
POC BS 96 at12:50 pm
[2024-04-10] MEDS: Desmopressin Acetate 20 MCG in 0.9 % Sodium Chloride 50 ML 100 MCG IV (12:54)
[2024-04-10 12:58] LABS: Glucose, Whole Blood 96 mg/dL (60-115)
[2024-04-10] MEDS: hydrALAZINE HCl 20 MG/ML VIAL IVPUSH (13:04)
--- NOTE | 2024-04-10 13:20 | MHC.SHP ---
Pre-Procedural Eval Section A - 24 Hr Update-Section A only Date of Service: 04/10/24 Section B - Complete if H&P > 30 days Chief Complaint: RENAL, CKD Details of Present Illness: 53 y/o man with DM and HTN and worsening renal function. Nephrology requests a renal biopsy. Relevant Family History (Specify if Yes): No Relevant Social History: None Present Medications: see Short Stay Collaborative assessment Medical History: Significant History (HTN, DM) History of Previous Operations: Relevant previous surgery/procedure and date(s) Allergies: Allergies Allergy/AdvReac Type Severity Reaction Status Date / Time losartan Allergy Unknown Stomach Verified 04/08/24 14:51 Upset allopurinol AdvReac Severe Itching Verified 04/08/24 14:51 amlodipine AdvReac Intermediate edema Verified 04/08/24 14:51 Review of Systems Sugical H&P ROS: Negative: Constitution, Cardiovascular, Respiratory and Gastrointestinal Exam Surgical H&P Exam: Normal: Heart, Normal: Lungs, Normal: Abdomen and Normal: Neurological Plan 53 y/o man with DM and HTN and worsening renal function. -Image guided renal biopsy Time Spent With Patient Time: Total time managing care of this patient today ____ minutes.
== END 2024-04-10 17:42 | disposition home or self-care (01) ==
PROVIDERS: Radiology Vascular & Interventional Radiology; PCP Internal Medicine; Visit Provider Internal Medicine Hypertension Specialist
DX: E11.22 Type 2 diabetes mellitus with diabetic chronic kidney disease (principal); I12.9 Hypertensive chronic kidney disease with stage 1 through stage 4 chronic kidney disease, or unspecified chronic kidney disease; N18.32 Chronic kidney disease, stage 3b; N12 Tubulo-interstitial nephritis, not specified as acute or chronic; N39.0 Urinary tract infection, site not specified; R80.9 Proteinuria, unspecified; N28.1 Cyst of kidney, acquired; M10.9 Gout, unspecified; Z79.84 Long term (current) use of oral hypoglycemic drugs; Z79.52 Long term (current) use of systemic steroids; Z79.899 Other long term (current) drug therapy; Z88.8 Allergy status to other drugs, medicaments and biological substances
CPT/HCPCS: 50200; 77012; 82947; 86850; 86900; 86901; 88300; 88305; 88313; 88346; 88348; 88350; 99152; J0360; J1920; J2250; J2310; J2597; J3010

== ENCOUNTER → 2024-04-10 13:21 | Outpatient (BNV) | payer BC, SELFPAY | PROVIDERS: PCP Internal Medicine; Visit Provider Radiology Vascular & Interventional Radiology | DX: N18.9 Chronic kidney disease, unspecified (principal) | CPT/HCPCS: 50200; 77012 ==

== ENCOUNTER 2024-05-07 14:16 | Outpatient (REF) | payer BC, SELFPAY ==
[2024-05-07 17:04] LABS: Anion Gap 15 (12-20); Blood Urea Nitrogen 51 mg/dL (9-16); Calcium 9.1 mg/dL (8.4-10.2); Carbon Dioxide 20 mmol/L (22-29); Chloride 111 mmol/L (96-108); Estimated Glomerular Filt Rate 28; Glucose Random 213 mg/dL (60-115); Potassium 4.3 mmol/L (3.3-5.1); Sodium 142 mmol/L (135-145)
== END 2024-05-07 14:17 | disposition home or self-care (01) ==
LOC: HO.HMGCLDS 14:16
PROVIDERS: PCP Internal Medicine; Visit Provider Internal Medicine Hypertension Specialist
DX: N18.9 Chronic kidney disease, unspecified (principal)
CPT/HCPCS: 36415; 80048

== ENCOUNTER 2024-05-08 13:37 | Outpatient (AMB) | payer BC, SELFPAY ==
[2024-05-08 13:41] VITALS: BP 176/94; PULSE 96; O2SAT 98
--- NOTE | 2024-05-08 13:41 | HO.NEPHOV ---
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 Accompanied by: Friend Allergies losartan Allergy (Unknown, Verified 05/08/24 13:44) Stomach Upset allopurinol Adverse Reaction (Severe, Verified 05/08/24 13:44) Itching amlodipine Adverse Reaction (Intermediate, Verified 05/08/24 13:44) edema Medication List - Last Reconciled 05/08/24 by Efraín Arita MD ascorbic acid (vitamin C) 1 g PO DAILY 90 days atorvastatin 40 mg PO DAILY finasteride 5 mg PO DAILY 90 days fosfomycin tromethamine 1 packet PO Q OTHER DAY glipizide 5 mg PO BID hydralazine 50 mg PO TID metformin 500 mg PO BID methenamine hippurate 1 g PO daily 90 days prednisone 1 mg PO DAILY prednisone 10 mg PO DIRECTED sildenafil 100 mg PO .PRN 30 days tadalafil 5 mg PO DAILY 90 days valsartan 160 mg PO DAILY HPI Comments Details: .Carrillo is a pleasant 53-year-old man with history of longstanding hypertension and diabetes mellitus for about 5 years. He has a history of BPH and was evaluated by Urology. He has had history of recurrent UTIs. During evaluation he was found to have proteinuria. This referral has been made for evaluation of proteinuria Currently he is on losartan 50 mg along with hydrochlorothiazide 25 mg. The blood pressure has been suboptimal. However he has been monitoring his blood pressure at home. History of gout. He is allergic to allopurinol. He was recently treated with a course of prednisone. He has not on any uric acid lowering agents. It does not take any NSAIDs. No history of smoking. No history of any alcohol abuse. He has on a regular diet. Not on any salt restriction. 01/17/2024. Currently he has pain in his right knees. He feels that gout has returned. Recently completed a course of antibiotic for UTI. He is still having symptoms of dysuria. Losartan has been added recently and since then he has been having diarrhea. He feels he might be allergic to this medication. He has been monitoring blood pressure at home and blood pressure readings are still suboptimal. The workup revealed serum creatinine of 2.1 mg/dL and 24 urine collection revealed a protein excretion of more than 3 g with a creatinine clearance of 48 mL/minute. 03/25/2024. He was scheduled for kidney biopsy for the 2nd time however procedure was canceled because his blood pressure was 140/90 mm Hg. It is unfortunate that posterior was canceled for blood pressure of 140/90. 05/08/2024. 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 He has significant who has vascular sclerosis as well. I started him on prednisone bought a week ago [facility] Medical History (Updated 04/10/24 @ 14:55 by Ashley Lackey MD) Bacteriuria Urinary tract infection Urethral discharge, with blood Benign hypertension with stage 3b chronic kidney disease Recurrent UTI Hypertension Hyperlipidemia Gout Glucose intolerance Diabetes mellitus type 2, noninsulin dependent Surgical History No pertinent past surgical history Family History Father Diabetes CHF (congestive heart failure) Hypertension Mother Diabetes Social History Household Members: None Housing: Apartment Alcohol intake: current Comment: Ocassionally Patient Tobacco Use Status: Never used Tobacco Physical Exam Vital Signs: Last Vital Signs Pulse 96 05/08/24 13:41 BP 176/94 H 05/08/24 13:41 Pulse Ox 98 05/08/24 13:41 Oxygen Delivery Method Room Air 05/08/24 13:41 Results Reviewed Nephrology Results: Hgb 11.3 g/dl (14.0-18.0) L 03/28/24 WBC 6.9 X10*3/uL (4.8-10.8) 03/28/24 Plt Count 269 X10*3/uL (160-400) 03/28/24 Sodium 142 mmol/L (135-145) 05/07/24 Potassium 4.3 mmol/L (3.3-5.1) 05/07/24 Chloride 111 mmol/L (96-108) H 05/07/24 Carbon Dioxide 20 mmol/L (22-29) L 05/07/24 BUN 51 mg/dL (9-16) H 05/07/24 Creatinine 2.41 mg/dL (0.5-1.4) H 05/07/24 Calcium 9.1 mg/dL (8.4-10.2) 05/07/24 Urine Protein 300 (3+) mg/dL (Neg-Trace) H 03/28/24 Assessment & Plan Assessment & Plan (1) CKD (chronic kidney disease): Code(s): N18.9 - Chronic kidney disease, unspecified Category: Medical (2) Proteinuria: Code(s): R80.9 - Proteinuria, unspecified Category: Medical (3) Urinary tract infection: Code(s): N39.0 - Urinary tract infection, site not specified Category: Medical (4) Diabetes mellitus type 2, noninsulin dependent: Code(s): E11.9 - Type 2 diabetes mellitus without complications Category: Medical (5) Gout: Code(s): M10.9 - Gout, unspecified Category: Medical Qualifiers: Chronicity: chronic Gout etiology: due to renal impairment Gout site: multiple sites Presence of tophus: with tophus Qualified Code(s): M1A.39X1 - Chronic gout due to renal impairment, multiple sites, with tophus (tophi) (6) Renal cyst: Code(s): N28.1 - Cyst of kidney, acquired Category: Medical Plan . Middle-aged man with longstanding hypertension and diabetes mellitus with proteinuria by dipstick. Proteinuria Although this could be due to underlying diabetic nephropathy, Nondiabetic causes should be ruled out. Especially since he says that he has had diabetes for just 5 years. Serologies have been negative thus far. Differential diagnosis would include diabetic nephropathy, FSGS,. Membranous versus others He would benefit from a kidney biopsy for a definite diagnosis. I have discussed this with him. 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 -Patchy acute tubular necrosis. -Moderate chronic changes. -Global glomerulosclerosis: 40% global; 11% segmental -Tubular atrophy/interstitial fibrosis: 35-40% -Vascular sclerosis: Moderate, with hyalinosis Chronic kidney disease -as above Goal is to slow the progression of renal disease. Continue overt nephrotoxic agents. Maximize KVNG inhibition for renal protection. He will benefit from SGLT2 inhibitors Complete course of prednisone given finding of interstitial nephritis Hypertension Blood pressure is suboptimal. Since he is intolerant to losartan I switched it to valsartan 160 mg daily. I am not adding HCTZ due to history of gout. Increase hydralazine to 100 mg t.i.d. Goal is to maintain blood pressure less than 130/80. Encouraged him to stay on low-sodium diet. Diabetes mellitus Goal is to maintain A1c less than 7%. Gout He has had multiple episodes of gout in the past. Uric acid level was normal at 5.0 We will not add Uloric at this time. Follow up with Rheumatology l Encouraged him to stay on low purine diet. Recurrent UTI. 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
== END 2024-05-08 14:09 | disposition home or self-care (01) ==
PROVIDERS: PCP Internal Medicine; Visit Provider Internal Medicine Hypertension Specialist
DX: E11.22 Type 2 diabetes mellitus with diabetic chronic kidney disease (principal); N18.9 Chronic kidney disease, unspecified; R80.9 Proteinuria, unspecified; M1A.39X1 Chronic gout due to renal impairment, multiple sites, with tophus (tophi); N28.1 Cyst of kidney, acquired; N39.0 Urinary tract infection, site not specified
CPT/HCPCS: 99214

== ENCOUNTER → 2024-05-08 13:37 | Outpatient (BNVA) | payer BC, SELFPAY | PROVIDERS: PCP Internal Medicine; Visit Provider Internal Medicine Hypertension Specialist ==

== ENCOUNTER 2024-05-23 09:42 | Outpatient (REF) | payer BC, SELFPAY ==
[2024-05-23 17:40] LABS: MANUAL DIFF FLAG NO
[2024-05-23 17:53] LABS: Basophils Percent Auto 0.5 % (0-2); Eosinophils Absolute Auto 0.1 X10*3/uL (0.0-0.4); Eosinophils Percent Auto 1.7 % (0-4); Hematocrit 34.7 % (42.0-52.0); Hemoglobin 11.9 g/dl (14.0-18.0); Imm Gran Abs Auto 0.07 X10*3/uL (0.00-0.03); Imm Gran Pct Auto 0.9 % (0.0-0.4); Lymphocytes Absolute Auto 2.4 X10*3/uL (1.2-4.9); Lymphocytes Percent Auto 31.8 % (20-40); Mean Corpuscular HGB Conc 34.3 g/dl (31.0-36.0); Mean Corpuscular Hemoglobin 27.5 pg (27.0-33.0); Mean Corpuscular Volume 80.1 fL (80.0-98.0); Mean Platelet Volume 10.4 fL (9.4-12.4); Monocytes Absolute Auto 0.5 X10*3/uL (0.1-1.2); Monocytes Percent Auto 7.1 % (2-11); Neutrophils Absolute Auto 4.4 x10*3/uL (2.0-8.3); Platelet Count 253 X10*3/uL (160-400); Red Blood Count 4.33 X10*6/uL (4.60-5.80); Red Cell Distribution Width 14.6 % (11.0-16.0); White Blood Count 7.5 X10*3/uL (4.8-10.8)
[2024-05-23 17:54] LABS: Appearance Urine Cloudy; Color Urine Yellow; Glucose Urine UA Negative (Negative); Leukocyte Esterase Urine Moderate (2+) (Negative); Nitrite Urine Positive (Negative); PH 5.5 (5.0-9.0); Specific Gravity - Urine 1.015 (1.005-1.025); UMIC TRIGGER UA YES; Urine Blood Trace (Negative); Urine Ketones Negative (Negative); Urine Protein 300 (3+) mg/dL (Neg-Trace)
[2024-05-23 18:00] LABS: Anion Gap 14 (12-20); Blood Urea Nitrogen 47 mg/dL (9-16); Calcium 8.7 mg/dL (8.4-10.2); Carbon Dioxide 18 mmol/L (22-29); Chloride 113 mmol/L (96-108); Estimated Glomerular Filt Rate 29; Glucose Random 177 mg/dL (60-115); Potassium 3.6 mmol/L (3.3-5.1); Sodium 141 mmol/L (135-145)
[2024-05-23 19:41] LABS: Bacteria Urine 4+ (None Seen); Hyaline Casts Urine 0-2 /LPF (0-2); Squamous Epithelial Cell Urine 0-2 /HPF (0-2); WBC Urine >50 /HPF (0-5)
== END 2024-05-23 09:43 | disposition home or self-care (01) ==
LOC: HO.HKASLDS 09:42
PROVIDERS: Visit Provider Internal Medicine Hypertension Specialist
DX: N18.9 Chronic kidney disease, unspecified (principal)
CPT/HCPCS: 36415; 80048; 81001; 85025

== ENCOUNTER → 2024-05-29 13:24 | Outpatient (AMB) | payer BC, SELFPAY ==
[2024-05-29 13:28] VITALS: BP 170/108; PULSE 104; O2SAT 100; BMI 28.9
--- NOTE | 2024-05-29 13:28 | HO.NEPHOV ---
Vital Signs 05/29/24 13:28 Height 6 ft 2 in Weight 225 lb BMI 28.9 BP 170/108 H Blood Pressure Location Rt brachial Position Sitting Pulse 104 H Pulse Source Pulse Oximeter Pulse Oximetry (%) 100 Oxygen Delivery Method Room Air Intake Visit Reasons: 1mon follow up/ Conf Starch Treating Assistant Required: No Accompanied by: Self / Same As Patient Allergies losartan Allergy (Unknown, Verified 05/29/24 13:30) Stomach Upset allopurinol Adverse Reaction (Severe, Verified 05/29/24 13:30) Itching amlodipine Adverse Reaction (Intermediate, Verified 05/29/24 13:30) edema Medication List - Last Reconciled 05/29/24 by Efraín Arita MD ascorbic acid (vitamin C) 1 g PO DAILY 90 days atorvastatin 40 mg PO DAILY doxazosin 2 mg PO DAILY finasteride 5 mg PO DAILY 90 days fosfomycin tromethamine 1 packet PO Q OTHER DAY glipizide 5 mg PO BID hydralazine 100 mg PO TID metformin 500 mg PO BID methenamine hippurate 1 g PO daily 90 days sildenafil 100 mg PO .PRN 30 days tadalafil 5 mg PO DAILY 90 days valsartan 160 mg PO DAILY HPI Comments Details: .Carrillo is a pleasant 53-year-old man with history of longstanding hypertension and diabetes mellitus for about 5 years. He has a history of BPH and was evaluated by Urology. He has had history of recurrent UTIs. During evaluation he was found to have proteinuria. This referral has been made for evaluation of proteinuria Currently he is on losartan 50 mg along with hydrochlorothiazide 25 mg. The blood pressure has been suboptimal. However he has been monitoring his blood pressure at home. History of gout. He is allergic to allopurinol. He was recently treated with a course of prednisone. He has not on any uric acid lowering agents. It does not take any NSAIDs. No history of smoking. No history of any alcohol abuse. He has on a regular diet. Not on any salt restriction. 01/17/2024. Currently he has pain in his right knees. He feels that gout has returned. Recently completed a course of antibiotic for UTI. He is still having symptoms of dysuria. Losartan has been added recently and since then he has been having diarrhea. He feels he might be allergic to this medication. He has been monitoring blood pressure at home and blood pressure readings are still suboptimal. The workup revealed serum creatinine of 2.1 mg/dL and 24 urine collection revealed a protein excretion of more than 3 g with a creatinine clearance of 48 mL/minute. 03/25/2024. He was scheduled for kidney biopsy for the 2nd time however procedure was canceled because his blood pressure was 140/90 mm Hg. It is unfortunate that posterior was canceled for blood pressure of 140/90. 05/08/2024. 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 He has significant who has vascular sclerosis as well. I started him on prednisone bought a week ago [facility] Medical History (Updated 04/10/24 @ 14:55 by Ashley Lackey MD) Bacteriuria Urinary tract infection Urethral discharge, with blood Benign hypertension with stage 3b chronic kidney disease Recurrent UTI Hypertension Hyperlipidemia Gout Glucose intolerance Diabetes mellitus type 2, noninsulin dependent Surgical History No pertinent past surgical history Family History Father Diabetes CHF (congestive heart failure) Hypertension Mother Diabetes Social History Household Members: None Housing: Apartment Alcohol intake: current Comment: Ocassionally Patient Tobacco Use Status: Never used Tobacco Physical Exam Vital Signs: Last Vital Signs Pulse 104 H 05/29/24 13:28 BP 170/108 H 05/29/24 13:28 Pulse Ox 100 05/29/24 13:28 Oxygen Delivery Method Room Air 05/29/24 13:28 BMI result Body Mass Index 28.9 Results Reviewed Nephrology Results: Hgb 11.9 g/dl (14.0-18.0) L 05/23/24 WBC 7.5 X10*3/uL (4.8-10.8) 05/23/24 Plt Count 253 X10*3/uL (160-400) 05/23/24 Sodium 141 mmol/L (135-145) 05/23/24 Potassium 3.6 mmol/L (3.3-5.1) 05/23/24 Chloride 113 mmol/L (96-108) H 05/23/24 Carbon Dioxide 18 mmol/L (22-29) L 05/23/24 BUN 47 mg/dL (9-16) H 05/23/24 Creatinine 2.36 mg/dL (0.5-1.4) H 05/23/24 Calcium 8.7 mg/dL (8.4-10.2) 05/23/24 Urine Protein 300 (3+) mg/dL (Neg-Trace) H 05/23/24 Assessment & Plan Assessment & Plan (1) CKD (chronic kidney disease): Code(s): N18.9 - Chronic kidney disease, unspecified Category: Medical (2) Proteinuria: Code(s): R80.9 - Proteinuria, unspecified Category: Medical (3) Urinary tract infection: Code(s): N39.0 - Urinary tract infection, site not specified Category: Medical (4) Diabetes mellitus type 2, noninsulin dependent: Code(s): E11.9 - Type 2 diabetes mellitus without complications Category: Medical (5) Gout: Code(s): M10.9 - Gout, unspecified Category: Medical Qualifiers: Gout site: multiple sites Gout etiology: due to renal impairment Chronicity: chronic Presence of tophus: with tophus Qualified Code(s): M1A.39X1 - Chronic gout due to renal impairment, multiple sites, with tophus (tophi) (6) Renal cyst: Code(s): N28.1 - Cyst of kidney, acquired Category: Medical Plan . Middle-aged man with longstanding hypertension and diabetes mellitus with proteinuria by dipstick. 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 -Patchy acute tubular necrosis. -Moderate chronic changes. -Global glomerulosclerosis: 40% global; 11% segmental -Tubular atrophy/interstitial fibrosis: 35-40% -Vascular sclerosis: Moderate, with hyalinosis Chronic kidney disease -as above Goal is to slow the progression of renal disease. Continue overt nephrotoxic agents. Maximize KVNG inhibition for renal protection. He will benefit from SGLT2 inhibitors Completed course of prednisone given finding of interstitial nephritis Add Farxiga 5 mg QD (05/29/24) Hypertension Blood pressure is suboptimal. Since he is intolerant to losartan I switched it to valsartan 160 mg daily. I am not adding HCTZ due to history of gout. Keep hydralazine 100 mg t.i.d. ADD Dozaxosin 2 mg BID (05/29/24) Goal is to maintain blood pressure less than 130/80. Encouraged him to stay on low-sodium diet. Diabetes mellitus Goal is to maintain A1c less than 7%. Gout He has had multiple episodes of gout in the past. Uric acid level was normal at 5.0 We will not add Uloric at this time. Follow up with Rheumatology l Encouraged him to stay on low purine diet. Recurrent UTI. Follow up with Urology Await TURP. 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
== END ==
PROVIDERS: PCP Internal Medicine; Visit Provider Internal Medicine Hypertension Specialist
DX: E11.22 Type 2 diabetes mellitus with diabetic chronic kidney disease (principal); N18.9 Chronic kidney disease, unspecified; M1A.39X1 Chronic gout due to renal impairment, multiple sites, with tophus (tophi); N28.1 Cyst of kidney, acquired; R80.9 Proteinuria, unspecified; N39.0 Urinary tract infection, site not specified
CPT/HCPCS: 99214

== ENCOUNTER → 2024-05-29 13:24 | Outpatient (BNVA) | payer BC, SELFPAY | PROVIDERS: PCP Internal Medicine; Visit Provider Internal Medicine Hypertension Specialist ==

== ENCOUNTER 2024-06-17 14:27 | Outpatient (AMB) | payer BC, SELFPAY ==
--- NOTE | 2024-06-17 14:28 | MHC.OFFVIS ---
Intake Visit Reasons: 4m/PVR Intake Note: Patient is present for 4M/PVR Urology Medication:DOXAZOSIN,FINASTERIDE,TADALAFIL,METHENAMINE HIPPURATE Antibiotic Allergy:NONE Blood Thinner:NONE TODAY'S PVR:0ML'S Local Announcer Required: No Allergies losartan Allergy (Unknown, Verified 06/17/24 22:03) Stomach Upset allopurinol Adverse Reaction (Severe, Verified 06/17/24 22:03) Itching amlodipine Adverse Reaction (Intermediate, Verified 06/17/24 22:03) edema Medication List - Last Reconciled 06/17/24 by JEREMIE Finney- ascorbic acid (vitamin C) 1 g PO DAILY 90 days atorvastatin 40 mg PO DAILY dapagliflozin propanediol (Farxiga) 5 mg PO DAILY doxazosin 2 mg PO BID finasteride 5 mg PO DAILY 90 days fosfomycin tromethamine 1 packet PO Q OTHER DAY glipizide 5 mg PO BID hydralazine 100 mg PO TID metformin 500 mg PO BID methenamine hippurate 1 g PO daily 90 days sildenafil 100 mg PO .PRN 30 days tadalafil 5 mg PO DAILY 90 days valsartan 160 mg PO DAILY HPI Comments Details: Carrillo is a pleasant 54-year-old male patient of Dr. Wei who was accompanied by his friend Eri at today's office visit. He has a past medical history of recurrent urinary tract infections, hypertension, kidney disease, hyperlipidemia, gout, and type 2 diabetes. He presents to the office today for follow-up of his recurrent urinary tract infections. In discussion with the patient today reports to be doing and feeling well. He reports compliance vitamin-C, finasteride, and low-dose tadalafil as prescribed. He reports having stopped methenamine as he feels he takes many medications. He discusses following up with Nephrology and has undergone renal biopsy that noted acute interstitial nephritis along with diabetic neuropathy. He reports having been prescribed prednisone that he has since completed. He currently denies any bothersome urinary issues. He reports typical symptoms of a urinary tract infection for him is foul-smelling urine as well as cloudy urine. He reports when following up with Nephrology approximately 1 month ago he was noted to have a urinary tract infection however never underwent treatment and in office urinalysis results today negative leukocytes negative nitrates. Of note, patient underwent an office cystoscopy 01/[address] Egan at which time recommendations were made for TURP. However, was initially started on finasteride. Previous workup has included a retroperitoneal ultrasound noting right kidney with no calculi, lesions, and or hydronephrosis noted. Multiple simple cyst the largest measuring 2.1 cm in the upper pole. No follow-up imaging is recommended per radiology report. Left kidney with no calculi or hydronephrosis. 0.4 cm simple cyst in the mid kidney. No follow-up imaging is recommended per radiology report. The bladder is well distended and normal. Bilateral ureteral jets are demonstrated. Pre void bladder volume is approximately 120 mL. Postvoid bladder volume is approximately 5 mL. The prostate measures 36 mL. PSAs: 09/09 2.4, 01/07 1.6 In office urinalysis results reviewed with the patient today. PVR 0 mL. When asked he denies urinary urgency, urinary frequency, incontinence, nocturia, hematuria, dysuria, changes to urinary stream, flank pain, fever, and or chills. Discussed at length potential causes for recurrent urinary tract infections. Discussed at length importance of managing diabetes for urinary issues, erectile dysfunction, and overall health and well-being. We discussed TURP and risks and benefits. All questions were answered. He otherwise offers no other issues or concerns at this time. [facility] Medical History Bacteriuria Urinary tract infection Urethral discharge, with blood Benign hypertension with stage 3b chronic kidney disease Recurrent UTI Hypertension Hyperlipidemia Gout Glucose intolerance Diabetes mellitus type 2, noninsulin dependent Surgical History No pertinent past surgical history Family History Father Diabetes CHF (congestive heart failure) Hypertension Mother Diabetes Social History Household Members: None Housing: Apartment Alcohol intake: current Comment: Ocassionally Patient Tobacco Use Status: Never used Tobacco Review of Systems Const Reports no additional complaints Eyes Reports no additional complaints ENT Reports no additional complaints Card Reports as per HPI Resp Reports no additional complaints GI Reports no additional complaints Reports as per HPI Musc Reports no additional complaints Neuro Reports no additional complaints Psych Reports no additional complaints Endo Reports as per HPI Rip/Lymph Reports no additional complaints Aller/Immun Reports no additional complaints Physical Exam Const General: cooperative, healthy appearing, comfortable, no acute distress, well developed, alert and awake Nutritional Appearance: overweight Orientation/consciousness: patient oriented x3 Limitations: no limitations HEENT Head: Yes normal to inspection, Yes normocephalic and Yes atraumatic Ears: hearing grossly normal bilaterally Eyes General: appearance normal, both eyes and all related structures Neck Neck: Yes normal visual inspection and Yes trachea midline Chest Chest palpation & inspection: normal inspection of the chest Resp Effort & Inspection: normal respiratory effort and able to speak in complete sentences Cardio Rate: regular rate GI Inspection: Yes normal to inspection General: Yes no CVA tenderness Back/Spine/Pelvis Back: no CVA tenderness Skin General skin exam: no rashes or lesions noted Neuro General: patient oriented x3 Extrem General: Yes normal to inspection Psych Appearance: grossly normal and well kempt Mental Status: mental status grossly normal Speech and movement: Normal speech and movement present and Clear speech present Affect: normal affect Attitude: cooperative Thought process: Normal thought process present Thought content: Normal thought content present Insight: Fair insight present (Psych) Judgement: Fair judgement present (Psych) Office Procedures Post Void Residual Post Residual Void Post Void Residual (PVR): 0 [id number] Void Residual by ultrasound Results AMB Urinalysis, Automated UA Leukoctes 0 Jarrell/uL Last Edit by SHEREEN Arias on 06/17/24 14:44 UA Nitrite Negative Last Edit by SHEREEN Arias on 06/17/24 14:44 UA Urobilinogen 0.2 mg/dL Last Edit by SHEREEN Arias on 06/17/24 14:44 UA Protein 100 mg/dL Last Edit by SHEREEN Arias on 06/17/24 14:44 UA pH 6.0 Last Edit by SHEREEN Arias on 06/17/24 14:44 UA Blood 0 Giovanni/uL Last Edit by SHEREEN Arias on 06/17/24 14:44 UA Specific Andrew 1.020 Last Edit by SHEREEN Arias on 06/17/24 14:44 UA Ketone Negative Last Edit by SHEREEN Arias on 06/17/24 14:44 UA Bilirubin 0 mg/dL Last Edit by SHEREEN Arias on 06/17/24 14:44 UA Glucose 1000 mg/dL Last Edit by SHEREEN Arias on 06/17/24 14:44 Results Reviewed Results Reviewed: Laboratory Last Values Urine pH (Auto) 6.0 06/17/24 14:44 Specific Andrew (Auto) 1.020 06/17/24 14:44 Urine Protein (Auto) 100 mg/dL 06/17/24 14:44 Glucose (UA)(Auto) 1000 mg/dL 06/17/24 14:44 Urine Ketones (Auto) Negative 06/17/24 14:44 Urine Blood (Auto) 0 Giovanni/uL 06/17/24 14:44 Urine Nitrite (Auto) Negative 06/17/24 14:44 Urine Bilirubin (Auto) 0 mg/dL 06/17/24 14:44 Urine Urobilinogen (Auto) 0.2 mg/dL 06/17/24 14:44 Leukocyte Esterase (Auto) 0 Jarrell/uL 06/17/24 14:44 Assessment & Plan Assessment & Plan (1) Proteinuria: Code(s): R80.9 - Proteinuria, unspecified Category: Medical (2) Renal cyst: Code(s): N28.1 - Cyst of kidney, acquired Category: Medical (3) BPH (benign prostatic hyperplasia): Code(s): N40.0 - Benign prostatic hyperplasia without lower urinary tract symptoms Category: Medical (4) Recurrent urinary tract infection: Code(s): N39.0 - Urinary tract infection, site not specified Category: Medical Plan: Risks, benefits and alternatives to therapy were discussed. These include but are not limited to infection, bleeding, damage to local organs and tissues, need for further interventions. ? Anesthetic risks regarding cardiac arrhythmia, blood clots, and potential mortality were discussed. The patient understands the typical recovery time and the outpatient nature of the procedure. After consideration of these risks the patient gives full informed consent and they wish to move ahead with the procedure. Plan In office urinalysis results reviewed with the patient today; as noted above. PVR 0 mL. Continue to follow-up with nephrology regarding proteinuria. We discussed importance of taking medications as prescribed. Continue finasteride, doxazosin, and tadalafil. Discussed TURP risks and benefits All questions were answered. Patient currently denies any bothersome urinary issues. He denies any UTI like symptoms. Will schedule for surgical procedure in the beginning of the year as patient will have new insurance per patient request. Follow-up per doctor's orders; or sooner with any issues, concerns, and or questions. Orders: Orders AMB Urinalysis Automated Today Z13.9 - Encounter for screening, unspecified Patient Instructions: The patient had an opportunity to ask questions regarding the treatment plan. All questions were answered. Physical exam, labs, and imaging were discussed and reviewed in detail. As well as risks, benefits, and discussion of treatment choices. No major barriers to understanding were identified. The patient expressed understanding and agreement with the above treatment plan. The patient was made aware they should contact our office by phone for worsening of their current condition, the appearance of new symptoms, or with any questions or concerns. Compliance is encouraged with any medications and follow up testing that is ordered. It is a privilege to be allowed the opportunity to participate in? your urological care.? Again, if you have any questions or concerns If you have any questions or concerns please do not hesitate to contact me. The office is [phone]. This note is constructed using voice recognition software. While every effort has been made to ensure accuracy oil plant operator errors may have been included. Yours sincerely, ANTONI Finney Coding Level of Care Code Est Pt Level 4 (80689) Complex EM visit Add On G2211 Diagnoses Proteinuria R80.9 Renal cyst N28.1 BPH (benign prostatic hyperplasia) N40.0 Recurrent urinary tract infection N39.0 CPT Codes Post Residual Void - PVR CPT Code: 32969-Hsxg Void Residual by ultrasound ([id number])
== END 2024-06-17 15:28 | disposition home or self-care (01) ==
PROVIDERS: PCP Nurse Practitioner Family; Visit Provider Nurse Practitioner Family
DX: R80.9 Proteinuria, unspecified (principal); N28.1 Cyst of kidney, acquired; N40.0 Benign prostatic hyperplasia without lower urinary tract symptoms; N39.0 Urinary tract infection, site not specified; Z13.9 Encounter for screening, unspecified
CPT/HCPCS: 99214

== ENCOUNTER → 2024-06-17 14:27 | Outpatient (BNVA) | payer BC, SELFPAY | PROVIDERS: PCP Nurse Practitioner Family; Visit Provider Nurse Practitioner Family | DX: N28.1 Cyst of kidney, acquired (principal); R80.9 Proteinuria, unspecified; N40.0 Benign prostatic hyperplasia without lower urinary tract symptoms; N39.0 Urinary tract infection, site not specified; E11.9 Type 2 diabetes mellitus without complications; Z79.899 Other long term (current) drug therapy | CPT/HCPCS: 51798; 81003 ==

== ENCOUNTER 2024-08-07 13:11 | Outpatient (AMB) | payer BC, SELFPAY ==
[2024-08-07 13:31] VITALS: BP 170/92; PULSE 91; O2SAT 99; BMI 29.3
--- NOTE | 2024-08-07 13:31 | HO.NEPHOV ---
Vital Signs 08/07/24 13:31 08/07/24 13:45 Height 6 ft 2 in Weight 228 lb BMI 29.3 BP 170/92 H 142/80 H Blood Pressure Location Lt brachial Lt brachial Position Sitting Pulse 91 Pulse Source Pulse Oximeter Pulse Oximetry (%) 99 Oxygen Delivery Method Room Air Intake Visit Reasons: 1mon follow up/ Conf Bush Hog Operator Required: No Accompanied by: Self / Same As Patient Allergies losartan Allergy (Unknown, Verified 08/07/24 13:33) Stomach Upset allopurinol Adverse Reaction (Severe, Verified 08/07/24 13:33) Itching amlodipine Adverse Reaction (Intermediate, Verified 08/07/24 13:33) edema Medication List - Last Reconciled 08/07/24 by Efraín Arita MD ascorbic acid (vitamin C) 1 g PO DAILY 90 days atorvastatin 40 mg PO DAILY dapagliflozin propanediol (Farxiga) 5 mg PO DAILY doxazosin 2 mg PO BID finasteride 5 mg PO DAILY 90 days fosfomycin tromethamine 1 packet PO Q OTHER DAY glipizide 5 mg PO BID hydralazine 100 mg PO TID metformin 500 mg PO BID methenamine hippurate 1 g PO daily 90 days prednisone 1 mg PO DAILY PRN sildenafil 100 mg PO .PRN 30 days tadalafil 5 mg PO DAILY 90 days valsartan 160 mg PO DAILY HPI Comments Details: .Carrillo is a pleasant 53-year-old man with history of longstanding hypertension and diabetes mellitus for about 5 years. He has a history of BPH and was evaluated by Urology. He has had history of recurrent UTIs. During evaluation he was found to have proteinuria. This referral has been made for evaluation of proteinuria Currently he is on losartan 50 mg along with hydrochlorothiazide 25 mg. The blood pressure has been suboptimal. However he has been monitoring his blood pressure at home. History of gout. He is allergic to allopurinol. He was recently treated with a course of prednisone. He has not on any uric acid lowering agents. It does not take any NSAIDs. No history of smoking. No history of any alcohol abuse. He has on a regular diet. Not on any salt restriction. 01/17/2024. Currently he has pain in his right knees. He feels that gout has returned. Recently completed a course of antibiotic for UTI. He is still having symptoms of dysuria. Losartan has been added recently and since then he has been having diarrhea. He feels he might be allergic to this medication. He has been monitoring blood pressure at home and blood pressure readings are still suboptimal. The workup revealed serum creatinine of 2.1 mg/dL and 24 urine collection revealed a protein excretion of more than 3 g with a creatinine clearance of 48 mL/minute. 03/25/2024. He was scheduled for kidney biopsy for the 2nd time however procedure was canceled because his blood pressure was 140/90 mm Hg. It is unfortunate that posterior was canceled for blood pressure of 140/90. 05/08/2024. 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 He has significant who has vascular sclerosis as well. I started him on prednisone bought a week ago 08/07/24 Doing well No new issues Seen by Waiting for TURP NO further UTI [facility] Medical History Bacteriuria Urinary tract infection Urethral discharge, with blood Benign hypertension with stage 3b chronic kidney disease Recurrent UTI Hypertension Hyperlipidemia Gout Glucose intolerance Diabetes mellitus type 2, noninsulin dependent Surgical History No pertinent past surgical history Family History Father Diabetes CHF (congestive heart failure) Hypertension Mother Diabetes Social History Household Members: None Housing: Apartment Alcohol intake: current Comment: Ocassionally Patient Tobacco Use Status: Never used Tobacco Physical Exam Vital Signs: Last Vital Signs Pulse 91 08/07/24 13:31 BP 142/80 H 08/07/24 13:45 Pulse Ox 99 08/07/24 13:31 Oxygen Delivery Method Room Air 08/07/24 13:31 BMI result Body Mass Index 29.3 Comfortable Neck supple no JVD. Lungs entry equal no rales. Heart S1-S2 heard no gallop or rub. Abdomen soft nontender. Neuro alert awake oriented. No asterixis. Extremities no edema. Results Reviewed Nephrology Results: Hgb 11.9 g/dl (14.0-18.0) L 05/23/24 WBC 7.5 X10*3/uL (4.8-10.8) 05/23/24 Plt Count 253 X10*3/uL (160-400) 05/23/24 Sodium 141 mmol/L (135-145) 05/23/24 Potassium 3.6 mmol/L (3.3-5.1) 05/23/24 Chloride 113 mmol/L (96-108) H 05/23/24 Carbon Dioxide 18 mmol/L (22-29) L 05/23/24 BUN 47 mg/dL (9-16) H 05/23/24 Creatinine 2.36 mg/dL (0.5-1.4) H 05/23/24 Calcium 8.7 mg/dL (8.4-10.2) 05/23/24 Urine Protein 300 (3+) mg/dL (Neg-Trace) H 05/23/24 Assessment & Plan Assessment & Plan (1) CKD (chronic kidney disease): Code(s): N18.9 - Chronic kidney disease, unspecified Category: Medical (2) Proteinuria: Code(s): R80.9 - Proteinuria, unspecified Category: Medical (3) Urinary tract infection: Code(s): N39.0 - Urinary tract infection, site not specified Category: Medical (4) Diabetes mellitus type 2, noninsulin dependent: Code(s): E11.9 - Type 2 diabetes mellitus without complications Category: Medical (5) Gout: Code(s): M10.9 - Gout, unspecified Category: Medical Qualifiers: Chronicity: chronic Gout etiology: due to renal impairment Gout site: multiple sites Presence of tophus: with tophus Qualified Code(s): M1A.39X1 - Chronic gout due to renal impairment, multiple sites, with tophus (tophi) (6) Renal cyst: Code(s): N28.1 - Cyst of kidney, acquired Category: Medical Plan . Middle-aged man with longstanding hypertension and diabetes mellitus with proteinuria by dipstick. 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 -Patchy acute tubular necrosis. -Moderate chronic changes. -Global glomerulosclerosis: 40% global; 11% segmental -Tubular atrophy/interstitial fibrosis: 35-40% -Vascular sclerosis: Moderate, with hyalinosis Chronic kidney disease -as above Goal is to slow the progression of renal disease. Continue overt nephrotoxic agents. Maximize KVNG inhibition for renal protection. He will benefit from SGLT2 inhibitors Completed course of prednisone given finding of interstitial nephritis Add Farxiga 5 mg QD (05/29/24) Hypertension Blood pressure is suboptimal. Since he is intolerant to losartan I switched it to valsartan 160 mg daily. I am not adding HCTZ due to history of gout. Keep hydralazine 100 mg t.i.d. keep Dozaxosin 2 mg BID (05/29/24) Goal is to maintain blood pressure less than 130/80. Encouraged him to stay on low-sodium diet. Diabetes mellitus Goal is to maintain A1c less than 7%. Gout He has had multiple episodes of gout in the past. Uric acid level was normal at 5.0 We will not add Uloric at this time. Follow up with Rheumatology l Encouraged him to stay on low purine diet. Recurrent UTI. Follow up with Urology Await TURP. 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
[2024-08-07 13:45] VITALS: BP 142/80
--- OUTSIDE RECORDS SUMMARY | 2024-08-07 15:09 | XMS_ITS | Clinical Summary ---
Author Organization [facility] Address [address] [place] [address] [place] [address] Phone Care Team Providers Care Plumber'S Assistant Name Role Phone Tim Carter MD Primary Care Provider [phone] Allergies Active Allergy Reactions Criticality Noted Date Comments Amlodipine 11/30/2023 Colchicine Other (see comments) 11/30/2023 Family History Medical History Relation Comments Diabetes Father Heart disease Father Diabetes Mother Hypertension Mother Diabetes Sibling brothers x 2 Relation Status Comments Father Mother Alive Sibling Social History Tobacco Use Types Packs/Day Years Used Date Smoking Tobacco: Never Alcohol Use Standard Drinks/Week Comments Yes 0 (1 standard drink = 0.6 oz pure alcohol) Alcoholic Drinks/day: Occasional social drink Sex and Gender Information Value Date Recorded Sex Assigned at Not on file Legal Sex Male 5:11 PM EST Gender Identity Not on file Sexual Orientation Not on file Plan of Treatment Health Maintenance Due Date Last Done Comments Pneumococcal Vaccine: Pediat rics (0 to 5 Years) and At-Risk Patients (6 to 64 Years) (1 of 2 - PCV) 1975 Hepatitis B Vaccine (1 of 3 - 19+ 3-dose series) 05/19 Colorectal Cancer Screening: Annual FOBT 2018 Colorectal Cancer Screening: Colonoscopy 2018 Colorectal Cancer Screening: Sigmoidoscopy 2018 Diabetes: Hemoglobin A1C 08/17/2020 Diabetes: Ophthalmology Exam 08/17/2020 Diabetes: Pedal Pulse Checked 08/17/2020 Diabetes: Sensory Foot Exam 08/17/2020 Diabetes: Visual Foot Exam 08/17/2020 Influenza Vaccine (#1) 2024 Insurance [facility] Care Teams Plumber'S Assistant Relationship Specialty Start Date End Date Tim Carter MD [place] [employer] [address] [place] [address] PCP - General Internal Medicine 11/30/23
--- OUTSIDE RECORDS SUMMARY | 2024-08-07 15:10 | XMS_ITS | Encounter Summary ---
Author Organization [facility] Address [address] [place] [address] Phone Care Team Providers Care Check Out Cashier Name Role Phone Tim Carter MD Primary Care Provider [phone] Encounter Details Date Type Department Care Team (Late st Contact Info) Description 11/30/2023 Documentation Only [facility] [place], [address] [place] [address] Sandee Galeano [place] [address] [place] [address] Social History Tobacco Use Types Packs/Day Years Used Date Smoking Tobacco: Never Alcohol Use Standard Drinks/Week Comments Yes 0 (1 standard drink = 0.6 oz pure alcohol) Alcoholic Drinks/day: Occasional social drink Sex and Gender Information Value Date Recorded Sex Assigned at Not on file Legal Sex Male 5:11 PM EST Gender Identity Not on file Sexual Orientation Not on file documented as of this encounter Plan of Treatment Not on file documented as of this encounter Visit Diagnoses Not on filedocumented in this encounter Care Teams Check Out Cashier Relationship Specialty Start Date End Date Tim Carter MD [facility] [address] [place] [address] [address] [place] [address] PCP - General Internal Medicine 11/30/23 documented as of this encounter
== END 2024-08-07 13:51 | disposition home or self-care (01) ==
PROVIDERS: PCP Internal Medicine; Visit Provider Internal Medicine Hypertension Specialist
DX: N18.9 Chronic kidney disease, unspecified (principal); R80.9 Proteinuria, unspecified; N39.0 Urinary tract infection, site not specified; E11.9 Type 2 diabetes mellitus without complications; M1A.39X1 Chronic gout due to renal impairment, multiple sites, with tophus (tophi); N28.1 Cyst of kidney, acquired
CPT/HCPCS: 99214

== ENCOUNTER → 2024-08-07 13:11 | Outpatient (BNVA) | payer BC, SELFPAY | PROVIDERS: PCP Internal Medicine; Visit Provider Internal Medicine Hypertension Specialist | DX: N18.9 Chronic kidney disease, unspecified (principal); R80.9 Proteinuria, unspecified; N39.0 Urinary tract infection, site not specified; E11.9 Type 2 diabetes mellitus without complications; M1A.39X1 Chronic gout due to renal impairment, multiple sites, with tophus (tophi); N28.1 Cyst of kidney, acquired ==

== ENCOUNTER 2024-08-08 11:03 | Outpatient (REF) | payer BC, SELFPAY ==
[2024-08-08 17:56] LABS: Hematocrit 33.6 % (42.0-52.0); Hemoglobin 11.1 g/dl (14.0-18.0); Mean Corpuscular Hemoglobin 27.3 pg (27.0-33.0); Mean Corpuscular Volume 82.6 fL (80.0-98.0); Mean Platelet Volume 10.1 fL (9.4-12.4); Platelet Count 276 X10*3/uL (160-400); Red Blood Count 4.07 X10*6/uL (4.60-5.80); Red Cell Distribution Width 14.3 % (11.0-16.0); White Blood Count 6.5 X10*3/uL (4.8-10.8)
[2024-08-08 18:07] LABS: Appearance Urine Cloudy; Color Urine Yellow; Glucose Urine UA 100 mg/dL (Negative); Leukocyte Esterase Urine Moderate (2+) (Negative); Nitrite Urine Positive (Negative); PH 5.5 (5.0-9.0); Specific Gravity - Urine 1.015 (1.005-1.025); UMIC TRIGGER UA YES; Urine Blood Negative (Negative); Urine Ketones Negative (Negative); Urine Protein 300 (3+) mg/dL (Neg-Trace)
[2024-08-08 18:09] LABS: Anion Gap 10 (12-20); Blood Urea Nitrogen 41 mg/dL (9-16); Calcium 9.1 mg/dL (8.4-10.2); Carbon Dioxide 22 mmol/L (22-29); Chloride 115 mmol/L (96-108); Estimated Glomerular Filt Rate 26; Glucose Random 66 mg/dL (60-115); Potassium 3.4 mmol/L (3.3-5.1); Sodium 144 mmol/L (135-145)
[2024-08-08 18:21] LABS: Parathyroid Hormone Intact 229.3 pg/mL (8.7-77.1)
[2024-08-08 18:32] LABS: Bacteria Urine 4+ (None Seen); RBC Urine 0-2 /HPF (0-2); Squamous Epithelial Cell Urine 0-2 /HPF (0-2); WBC Urine >50 /HPF (0-5)
== END 2024-08-08 11:04 | disposition home or self-care (01) ==
LOC: HO.HKASLDS 11:03
PROVIDERS: Internal Medicine Hypertension Specialist; PCP Internal Medicine; Visit Provider Urology
DX: N18.9 Chronic kidney disease, unspecified (principal); N39.0 Urinary tract infection, site not specified
CPT/HCPCS: 36415; 80048; 81001; 83970; 85027

== ENCOUNTER 2024-11-27 10:23 | Outpatient (REF) | payer BC, SELFPAY ==
--- OUTSIDE RECORDS SUMMARY | 2024-11-27 12:00 | XMS_ITS | Clinical Summary ---
Author Organization [facility] Address [address] [place] [address] [place] [address] Phone Care Team Providers Care Patient Accounting Representative Name Role Phone Tim Carter MD Primary Care Provider [phone] Allergies Active Allergy Reactions Criticality Noted Date [...] Vaccine (Season Ended) [address] [facility] [place] [address] Care Teams Patient Accounting Representative Relationship Specialty Start Date End Date Tim Carter MD [facility] [employer] [address] [place] [address] [address] [place] [address] PCP - General Internal Medicine 11/30/23
--- OUTSIDE RECORDS SUMMARY | 2024-11-27 12:00 | XMS_ITS | Encounter Summary ---
Author Organization [facility] Address [address] [place] [address] Phone Care Team Providers Care Clasp Machine Operator Name Role Phone Tim Carter MD Primary Care Provider [phone] Encounter Details Date Type Department Care Team (Late st Contact Info) Description 11/30/2023 Documentation Only [facility] [place], [address] [place] [address] Sandee Galeano [place] [address] [place] [address] Social History Tobacco Use Types [...] on filedocumented in this encounter Care Teams Clasp Machine Operator Relationship Specialty Start Date End Date Tim Carter MD [facility] [address] [place] [address] [place] [address] PCP - General Internal Medicine 11/30/23 documented as of this encounter
[2024-11-27 18:22] LABS: Appearance Urine Turbid; Color Urine Yellow; Glucose Urine UA Negative (Negative); Leukocyte Esterase Urine Large (3+) (Negative); Nitrite Urine Positive (Negative); PH 5.5 (5.0-9.0); Specific Gravity - Urine 1.015 (1.005-1.025); UMIC TRIGGER UA YES; Urine Blood Trace (Negative); Urine Ketones Negative (Negative); Urine Protein 300 (3+) mg/dL (Neg-Trace)
[2024-11-27 18:27] LABS: Hematocrit 28.1 % (42.0-52.0); Hemoglobin 9.2 g/dl (14.0-18.0); Mean Corpuscular HGB Conc 32.7 g/dl (31.0-36.0); Mean Corpuscular Hemoglobin 26.7 pg (27.0-33.0); Mean Corpuscular Volume 81.4 fL (80.0-98.0); Mean Platelet Volume 9.9 fL (9.4-12.4); Platelet Count 353 X10*3/uL (160-400); Red Blood Count 3.45 X10*6/uL (4.60-5.80); Red Cell Distribution Width 14.3 % (11.0-16.0); White Blood Count 5.8 X10*3/uL (4.8-10.8)
[2024-11-27 18:32] LABS: Anion Gap 13 (12-20); Blood Urea Nitrogen 41 mg/dL (9-16); Calcium 8.9 mg/dL (8.4-10.2); Carbon Dioxide 21 mmol/L (22-29); Chloride 113 mmol/L (96-108); Estimated Glomerular Filt Rate 25; Glucose Random 64 mg/dL (60-115); Potassium 3.9 mmol/L (3.3-5.1); Sodium 143 mmol/L (135-145)
[2024-11-27 18:38] LABS: Bacteria Urine 4+ (None Seen); WBC Clumps Urine Present; WBC Urine >50 /HPF (0-5)
== END 2024-11-27 10:24 | disposition home or self-care (01) ==
LOC: HO.HKASLDS 10:23
PROVIDERS: PCP Internal Medicine; Visit Provider Internal Medicine Hypertension Specialist
DX: N18.9 Chronic kidney disease, unspecified (principal); E11.9 Type 2 diabetes mellitus without complications; R80.9 Proteinuria, unspecified
CPT/HCPCS: 36415; 80048; 81001; 85027

== ENCOUNTER 2024-11-27 10:23 | Outpatient (AMB) | payer BC, SELFPAY ==
--- NOTE | 2024-11-27 10:25 | HO.NEPHOV ---
Vital Signs 11/27/24 10:26 Height 6 ft 2 in Weight 228 lb BMI 29.3 BP 136/82 Blood Pressure Location Lt brachial Position Sitting Pulse 97 Pulse Source Pulse Oximeter Pulse Oximetry (%) 99 Oxygen Delivery Method Room Air Intake Visit Reasons: 3mon follow up/ Conf Supervisor Cigar Processing Required: No Accompanied by: Self / Same As Patient Allergies losartan Allergy (Unknown, Verified 11/27/24 10:28) Stomach Upset allopurinol Adverse Reaction (Severe, Verified 11/27/24 10:28) Itching amlodipine Adverse Reaction (Intermediate, Verified 11/27/24 10:28) edema Medication List - Last Reconciled 11/27/24 by Efraín Arita MD ascorbic acid (vitamin C) 1 g PO DAILY 90 days atorvastatin 80 mg PO DAILY cetirizine 10 mg PO DAILY doxazosin 2 mg PO BID finasteride 5 mg PO DAILY 90 days glipizide 5 mg PO BID hydralazine 100 mg PO TID metformin 500 mg PO ONCE methenamine hippurate 1 g PO daily 90 days metoprolol succinate ER 50 mg PO DAILY prednisone 1 mg PO DAILY PRN pregabalin 25 mg PO DAILY sildenafil 100 mg PO .PRN 30 days tadalafil 5 mg PO DAILY 90 days valsartan 160 mg PO DAILY HPI Comments Details: .Carrillo is a pleasant 53-year-old man with history of longstanding hypertension and diabetes mellitus for about 5 years. He has a history of BPH and was evaluated by Urology. He has had history of recurrent UTIs. During evaluation he was found to have proteinuria. This referral has been made for evaluation of proteinuria Currently he is on losartan 50 mg along with hydrochlorothiazide 25 mg. The blood pressure has been suboptimal. However he has been monitoring his blood pressure at home. History of gout. He is allergic to allopurinol. He was recently treated with a course of prednisone. He has not on any uric acid lowering agents. It does not take any NSAIDs. No history of smoking. No history of any alcohol abuse. He has on a regular diet. Not on any salt restriction. 01/17/2024. Currently he has pain in his right knees. He feels that gout has returned. Recently completed a course of antibiotic for UTI. He is still having symptoms of dysuria. Losartan has been added recently and since then he has been having diarrhea. He feels he might be allergic to this medication. He has been monitoring blood pressure at home and blood pressure readings are still suboptimal. The workup revealed serum creatinine of 2.1 mg/dL and 24 urine collection revealed a protein excretion of more than 3 g with a creatinine clearance of 48 mL/minute. 03/25/2024. He was scheduled for kidney biopsy for the 2nd time however procedure was canceled because his blood pressure was 140/90 mm Hg. It is unfortunate that posterior was canceled for blood pressure of 140/90. 05/08/2024. 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 He has significant who has vascular sclerosis as well. I started him on prednisone bought a week ago 08/07/24 Doing well No new issues Seen by Waiting for TURP NO further UTI 11/27/24 54-year-old male presenting with follow-up concerns regarding chronic kidney function, hypertension, and diabetes management. His essential hypertension, a longstanding condition, has registered recent blood pressure measurements as high as 154/105 mmHg, prompting further evaluation and treatment adjustment. He has a prescribed regimen that includes doxazosin, hydralazine, valsartan, and a newly added metoprolol due to persistent hypertension. Recently, atorvastatin dosage was increased for hyperlipidemia management. The patient underwent a TURP procedure on October 25 for benign prostatic hyperplasia, noting improvements in urinary flow and reduction in UTI occurrences postoperatively. The patient's Type 2 Diabetes Mellitus management indicates an A1c level between 5 and 6% on last review. Adjustments to metformin were advised due to renal considerations, although clarification was provided regarding non-damaging effects on kidney function with adequate GFR. Another antihyperglycemic agent, farxiga, was discontinued due to an allergic reaction. The patient also discusses previous usage of phosphomycin for UTIs, though it's currently discontinued in the absence of symptoms. [facility] Medical History Bacteriuria Urinary tract infection Urethral discharge, with blood Benign hypertension with stage 3b chronic kidney disease Recurrent UTI Hypertension Hyperlipidemia Gout Glucose intolerance Diabetes mellitus type 2, noninsulin dependent Surgical History No pertinent past surgical history Family History Father Diabetes CHF (congestive heart failure) Hypertension Mother Diabetes Social History Household Members: None Housing: Apartment Alcohol intake: current Comment: Ocassionally Patient Tobacco Use Status: Never used Tobacco Physical Exam Vital Signs: Last Vital Signs Pulse 97 11/27/24 10:26 BP 136/82 11/27/24 10:26 Pulse Ox 99 11/27/24 10:26 Oxygen Delivery Method Room Air 11/27/24 10:26 BMI result Body Mass Index 29.3 Comfortable Neck supple no JVD. Lungs entry equal no rales. Heart S1-S2 heard no gallop or rub. Abdomen soft nontender. Neuro alert awake oriented. No asterixis. Extremities no edema. Results Reviewed Nephrology Results: Hgb 11.1 g/dl (14.0-18.0) L 08/08/24 WBC 6.5 X10*3/uL (4.8-10.8) 08/08/24 Plt Count 276 X10*3/uL (160-400) 08/08/24 Sodium 144 mmol/L (135-145) 08/08/24 Potassium 3.4 mmol/L (3.3-5.1) 08/08/24 Chloride 115 mmol/L (96-108) H 08/08/24 Carbon Dioxide 22 mmol/L (22-29) 08/08/24 BUN 41 mg/dL (9-16) H 08/08/24 Creatinine 2.60 mg/dL (0.5-1.4) H 08/08/24 Calcium 9.1 mg/dL (8.4-10.2) 08/08/24 PTH Intact 229.3 pg/mL (8.7-77.1) H 08/08/24 Urine Protein 300 (3+) mg/dL (Neg-Trace) H 08/08/24 Assessment & Plan Assessment & Plan (1) CKD (chronic kidney disease): Code(s): N18.9 - Chronic kidney disease, unspecified Category: Medical (2) Proteinuria: Code(s): R80.9 - Proteinuria, unspecified Category: Medical (3) Urinary tract infection: Code(s): N39.0 - Urinary tract infection, site not specified Category: Medical (4) Diabetes mellitus type 2, noninsulin dependent: Code(s): E11.9 - Type 2 diabetes mellitus without complications Category: Medical (5) Gout: Code(s): M10.9 - Gout, unspecified Category: Medical Qualifiers: Chronicity: chronic Gout etiology: due to renal impairment Gout site: multiple sites Presence of tophus: with tophus Qualified Code(s): M1A.39X1 - Chronic gout due to renal impairment, multiple sites, with tophus (tophi) (6) Renal cyst: Code(s): N28.1 - Cyst of kidney, acquired Category: Medical Plan . Middle-aged man with longstanding hypertension and diabetes mellitus with proteinuria by dipstick. 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 -Patchy acute tubular necrosis. -Moderate chronic changes. -Global glomerulosclerosis: 40% global; 11% segmental -Tubular atrophy/interstitial fibrosis: 35-40% -Vascular sclerosis: Moderate, with hyalinosis Chronic kidney disease -as above Goal is to slow the progression of renal disease. Continue overt nephrotoxic agents. Maximize KVNG inhibition for renal protection. He will benefit from SGLT2 inhibitors Completed course of prednisone given finding of interstitial nephritis Add Farxiga 5 mg QD (05/29/24) Hypertension Blood pressure is suboptimal. Since he is intolerant to losartan I switched it to valsartan 160 mg daily. I am not adding HCTZ due to history of gout. Keep hydralazine 100 mg t.i.d. keep Dozaxosin 2 mg BID (05/29/24) Goal is to maintain blood pressure less than 130/80. Encouraged him to stay on low-sodium diet. Diabetes mellitus Goal is to maintain A1c less than 7%. Gout He has had multiple episodes of gout in the past. Uric acid level was normal at 5.0 We will not add Uloric at this time. Follow up with Rheumatology l Encouraged him to stay on low purine diet. Recurrent UTI. Follow up with Urology s/p TURP. 11/27/24 s/p TURP Expect some improvement in renal function Ordered renal panel today If eGFR remains < 30, would stop Metformin due to the risk of Lactic acidosis. Overall BP is better controlled; Volume status is acceptable. Stay on low salt diet No change in meds today Orders: Orders Basic Metabolic Panel Today E11.9 - Type 2 diabetes mellitus without complications, N18.9 - Chronic kidney disease, unspecified, R80.9 - Proteinuria, unspecified Complete Blood Count no Diff Today E11.9 - Type 2 diabetes mellitus without complications, N18.9 - Chronic kidney disease, unspecified, R80.9 - Proteinuria, unspecified Basic Metabolic Panel 3 Months N18.9 - Chronic kidney disease, unspecified Medications: Changed From metformin 500 mg PO BID To metformin 500 mg PO ONCE Discontinued dapagliflozin propanediol (Farxiga) Discontinued Reason: Patient no longer taking 5 mg PO DAILY 30 tabs 4RF Coding Level of Care Code Est Pt Level 4 (02872) Diagnoses CKD (chronic kidney disease) N18.9 Proteinuria R80.9 Urinary tract infection N39.0 Diabetes mellitus type 2, noninsulin dependent E11.9 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
[2024-11-27 10:26] VITALS: BP 136/82; PULSE 97; O2SAT 99; BMI 29.3
--- OUTSIDE RECORDS SUMMARY | 2024-11-27 11:24 | XMS_ITS | Encounter Summary ---
Author Organization [facility] Address [address] [place] [address] Phone Care Team Providers Care Television Station Manager Name Role Phone Tim Carter MD Primary Care Provider [phone] Encounter Details Date Type Department Care Team (Late st Contact Info) Description 11/30/2023 Documentation Only [facility] [place], [address] [place] [address] Sandee Galeano [place] [address] [place] [address] Social History Tobacco Use Types [...] on filedocumented in this encounter Care Teams Television Station Manager Relationship Specialty Start Date End Date Tim Carter [facility] [address] [place] [address] [address] [place] [address] PCP - General Internal Medicine 11/30/23 documented as of this encounter
--- OUTSIDE RECORDS SUMMARY | 2024-11-27 11:24 | XMS_ITS | Clinical Summary ---
Author Organization [facility] Address [address] [place] [address] [place] [address] Phone Care Team Providers Care Employee Benefits Specialist Name Role Phone Tim Carter MD Primary Care Provider [phone] Allergies Active Allergy Reactions Criticality Noted Date [...] Health Maintenance Due Date Last Done Comments Hepatitis B Vaccine (1 of 3 - 19+ 3-dose series) 05/19 Pneumococcal Vaccine: 50+ Years (1 of 2 - PCV) 988 Colorectal Cancer Screening: Annual FOBT 2018 Colorectal Cancer Screening: Colonoscopy 2018 Colorectal Cancer Screening: Sigmoidoscopy 2018 Diabetes: Hemoglobin A1C 08/17/2020 Diabetes: Ophthalmology Exam 08/17/2020 Diabetes: Pedal Pulse Checked 08/17/2020 Diabetes: Sensory Foot Exam 08/17/2020 Diabetes: Visual Foot Exam 08/17/2020 Influenza Vaccine (Season Ended) [address] [facility] [place] [address] Care Teams Employee Benefits Specialist Relationship Specialty Start Date End Date Tim Carter MD [facility] [employer] [address] [place] [address] [place] [address] PCP - General Internal Medicine 11/30/23
== END 2024-11-27 10:52 | disposition home or self-care (01) ==
LOC: HO.HKAS 10:24
PROVIDERS: PCP Internal Medicine; Visit Provider Internal Medicine Hypertension Specialist
DX: N18.9 Chronic kidney disease, unspecified (principal); R80.9 Proteinuria, unspecified; N39.0 Urinary tract infection, site not specified; E11.9 Type 2 diabetes mellitus without complications; M1A.39X1 Chronic gout due to renal impairment, multiple sites, with tophus (tophi); N28.1 Cyst of kidney, acquired
CPT/HCPCS: 99214

== ENCOUNTER 2025-02-03 12:37 | Outpatient (AMB) | payer BC, SELFPAY ==
--- NOTE | 2025-02-03 12:48 | MHC.OFFVIS ---
Intake Visit Reasons: Follow up Intake Note: Patient is present for F/U Urology Medication:SILDENAFIL,METHENAMINE HIPPURATE,FINASTERIDFE,TADALAFIL,VITAMUIN C Antibiotic Allergy:NONE Blood Thinner:NONE TODAY'S PVR:0ML'S Live Truck Operator Required: No Allergies losartan Allergy (Unknown, Verified 02/03/25 13:16) Stomach Upset allopurinol Adverse Reaction (Severe, Verified 02/03/25 13:16) Itching amlodipine Adverse Reaction (Intermediate, Verified 02/03/25 13:16) edema Medication List - Last Reconciled 02/03/25 by JEREMIE Finney- ascorbic acid (vitamin C) 1 g PO DAILY 90 days atorvastatin 80 mg PO DAILY cetirizine 10 mg PO DAILY doxazosin 2 mg PO BID glipizide 5 mg PO BID hydralazine 100 mg PO TID metformin 500 mg PO ONCE methenamine hippurate 1 g PO daily 90 days metoprolol succinate ER 50 mg PO DAILY prednisone 1 mg PO DAILY PRN pregabalin 25 mg PO DAILY sildenafil 100 mg PO .PRN 30 days tadalafil 5 mg PO DAILY 90 days valsartan 160 mg PO DAILY HPI Comments Details: Carrillo is a pleasant 54-year-old male patient of Dr. Carter. He has a past medical history of recurrent urinary tract infections, hypertension, kidney disease, hyperlipidemia, gout, and type 2 diabetes. He presents to the office today for follow-up of his recurrent urinary tract infections and lower urinary tract symptoms. In discussion with the patient today he reports to be doing and feeling well. He reports compliance with methenamine, vitamin-C, low-dose tadalafil and finasteride as prescribed. He discusses having had his recent surgical intervention in [place]. Previous medical records were obtained and review. Patient status post cystoscopy/ TURP 10/25/[address] Wolf Armenta through [facility]. Pathology 7 g benign tissue. Patient had previously underwent workup to include an office cystoscopy 01/[address] Egan at which time recommendations were made for TURP. However, was initially started on finasteride. Previous workup has included a retroperitoneal ultrasound noting right kidney with no calculi, lesions, and or hydronephrosis noted. Multiple simple cyst the largest measuring 2.1 cm in the upper pole. No follow-up imaging is recommended per radiology report. Left kidney with no calculi or hydronephrosis. 0.4 cm simple cyst in the mid kidney. No follow-up imaging is recommended per radiology report. The bladder is well distended and normal. Bilateral ureteral jets are demonstrated. Pre void bladder volume is approximately 120 mL. Postvoid bladder volume is approximately 5 mL. The prostate measures 36 mL. Due to insurance coverage patient had surgical intervention in [place] as noted above. PSAs: 09/09 2.4, 01/07 1.6 In office urinalysis results reviewed with the patient today. PVR 0 mL. He denies any UTI like symptoms. He denies urinary urgency, urinary frequency, incontinence, nocturia, hematuria, dysuria, changes to urinary stream, flank pain, fever, and or chills. Discussed at length potential causes for recurrent urinary tract infections. Discussed at length importance of managing diabetes for urinary issues, erectile dysfunction, and overall health and well-being. He continues to follow-up with nephrology as planned. He discusses having had renal biopsy. All questions were answered. He otherwise offers no other issues or concerns at this time. FORMERLY [facility], [facility] Medical History Bacteriuria Urinary tract infection Urethral discharge, with blood Benign hypertension with stage 3b chronic kidney disease Recurrent UTI Hypertension Hyperlipidemia Gout Glucose intolerance Diabetes mellitus type 2, noninsulin dependent Surgical History No pertinent past surgical history Family History Father Diabetes CHF (congestive heart failure) Hypertension Mother Diabetes Social History Household Members: None Housing: Apartment Alcohol intake: current Comment: Ocassionally Patient Tobacco Use Status: Never used Tobacco Review of Systems Const Reports no additional complaints Eyes Reports no additional complaints ENT Reports no additional complaints Card Reports as per HPI Resp Reports no additional complaints GI Reports no additional complaints Reports as per HPI Musc Reports no additional complaints Neuro Reports no additional complaints Psych Reports no additional complaints Endo Reports as per HPI Rip/Lymph Reports no additional complaints Aller/Immun Reports no additional complaints Physical Exam Const General: cooperative, healthy appearing, comfortable, no acute distress, well developed, alert and awake Nutritional Appearance: overweight Orientation/consciousness: patient oriented x3 Limitations: no limitations HEENT Head: Yes normal to inspection, Yes normocephalic and Yes atraumatic Ears: hearing grossly normal bilaterally Eyes General: appearance normal, both eyes and all related structures Neck Neck: Yes normal visual inspection and Yes trachea midline Chest Chest palpation & inspection: normal inspection of the chest Resp Effort & Inspection: normal respiratory effort and able to speak in complete sentences Cardio Rate: regular rate GI Inspection: Yes normal to inspection General: Yes no CVA tenderness Back/Spine/Pelvis Back: no CVA tenderness Skin General skin exam: no rashes or lesions noted Neuro General: patient oriented x3 Extrem General: Yes normal to inspection Psych Appearance: grossly normal and well kempt Mental Status: mental status grossly normal Speech and movement: Normal speech and movement present and Clear speech present Affect: normal affect Attitude: cooperative Thought process: Normal thought process present Thought content: Normal thought content present Insight: Fair insight present (Psych) Judgement: Fair judgement present (Psych) Office Procedures Post Void Residual Post Residual Void Post Void Residual (PVR): 0 [id number] Void Residual by ultrasound Results AMB Urinalysis, Automated UA Leukoctes 1256 Jarrell/uL Last Edit by SHEREEN Arias on 02/03/25 12:59 UA Nitrite Positive Last Edit by SHEREEN Arias on 02/03/25 12:59 UA Urobilinogen 02 mg/dL Last Edit by SHEREEN Arias on 02/03/25 12:59 UA Protein 300 mg/dL Last Edit by SHEREEN Arias on 02/03/25 12:59 UA pH 6.0 Last Edit by SHEREEN Arias on 02/03/25 12:59 UA Blood 0 Giovanni/uL Last Edit by SHEREEN Arias on 02/03/25 12:59 UA Specific [place] 1.020 Last Edit by SHEREEN Arias on 02/03/25 12:59 UA Ketone Negative Last Edit by SHEREEN Arias on 02/03/25 12:59 UA Bilirubin 0 mg/dL Last Edit by SHEREEN Arias on 02/03/25 12:59 UA Glucose 0 mg/dL Last Edit by SHEREEN Arias on 02/03/25 12:59 Results Reviewed Results Reviewed: Laboratory Last Values Urine pH (Auto) 6.0 02/03/25 12:58 Specific [place] (Auto) 1.020 02/03/25 12:58 Urine Protein (Auto) 300 mg/dL 02/03/25 12:58 Glucose (UA)(Auto) 0 mg/dL 02/03/25 12:58 Urine Ketones (Auto) Negative 02/03/25 12:58 Urine Blood (Auto) 0 Giovanni/uL 02/03/25 12:58 Urine Nitrite (Auto) Positive 02/03/25 12:58 Urine Bilirubin (Auto) 0 mg/dL 02/03/25 12:58 Urine Urobilinogen (Auto) 02 mg/dL 02/03/25 12:58 Leukocyte Esterase (Auto) 1256 Jarrell/uL 02/03/25 12:58 Assessment & Plan Assessment & Plan (1) Recurrent urinary tract infection: Code(s): N39.0 - Urinary tract infection, site not specified Category: Medical (2) BPH (benign prostatic hyperplasia): Code(s): N40.0 - Benign prostatic hyperplasia without lower urinary tract symptoms Category: Medical (3) Erectile dysfunction: Code(s): N52.9 - Male erectile dysfunction, unspecified Category: Medical (4) Proteinuria: Code(s): R80.9 - Proteinuria, unspecified Category: Medical (5) Renal cyst: Code(s): N28.1 - Cyst of kidney, acquired Category: Medical Plan In office urinalysis results with the patient today; as noted above. PVR 0 mL. He currently denies any bothersome urinary issues or concerns. He reports be happy with current voiding parameters. Continue methenamine, vitamin-C, and low-dose Cialis as prescribed. Stop finasteride. Continue to follow-up nephrology as planned We discussed the importance of management and diabetes for improvement in urological health as well as overall health and well-being. All questions were answered. Will obtain PSA. Follow-up in 6 months with PSA and PVR; or sooner with any issues, concerns, and or questions. Orders: Orders AMB Urinalysis Automated Today Z13.9 - Encounter for screening, unspecified Prostate Specific Antigen Today N40.0 - Benign prostatic hyperplasia without lower urinary tract symptoms Medications: Discontinued finasteride Discontinued Reason: Doctor's Order 5 mg PO DAILY 90 tabs 1RF 90 days Patient Instructions: The patient had an opportunity to ask questions regarding the treatment plan. All questions were answered. Physical exam, labs, and imaging were discussed and reviewed in detail. As well as risks, benefits, and discussion of treatment choices. No major barriers to understanding were identified. The patient expressed understanding and agreement with the above treatment plan. The patient was made aware they should contact our office by phone for worsening of their current condition, the appearance of new symptoms, or with any questions or concerns. Compliance is encouraged with any medications and follow up testing that is ordered. It is a privilege to be allowed the opportunity to participate in? your urological care.? Again, if you have any questions or concerns If you have any questions or concerns please do not hesitate to contact me. The office is [phone]. This note is constructed using voice recognition software. While every effort has been made to ensure accuracy instructor weaving errors may have been included. Yours sincerely, ANTONI Finney Coding Level of Care Code Est Pt Level 3 (69439) Complex EM visit Add On G2211 Diagnoses Recurrent urinary tract infection N39.0 BPH (benign prostatic hyperplasia) N40.0 Erectile dysfunction N52.9 Proteinuria R80.9 Renal cyst N28.1 CPT Codes Post Residual Void - PVR CPT Code: 60325-[id number] Void Residual by ultrasound ([id number])
--- OUTSIDE RECORDS SUMMARY | 2025-02-03 13:20 | XMS_ITS | Clinical Summary ---
Author Organization [facility] Address [address] [place] [address] [place] [address] Phone Care Team Providers Care Electroneurodiagnostic Technologist Name Role Phone Tim Carter MD Primary Care Provider [phone] Allergies Active Allergy Reactions Criticality Noted Date [...] Visual Foot Exam 08/17/2020 Influenza Vaccine (#1) [address] [place] [address] Care Teams Electroneurodiagnostic Technologist Relationship Specialty Start Date End Date Tim Carter MD [place] Dunwello [address] [place] [address] [address] [place] [address] PCP - General Internal Medicine 11/30/23
== END 2025-02-03 13:14 | disposition home or self-care (01) ==
LOC: HO.HUSH 12:38
PROVIDERS: PCP Internal Medicine; Visit Provider Nurse Practitioner Family
DX: N39.0 Urinary tract infection, site not specified (principal); N40.0 Benign prostatic hyperplasia without lower urinary tract symptoms; N52.9 Male erectile dysfunction, unspecified; R80.9 Proteinuria, unspecified; N28.1 Cyst of kidney, acquired; Z13.9 Encounter for screening, unspecified
CPT/HCPCS: 99213

== ENCOUNTER → 2025-02-03 12:37 | Outpatient (BNVA) | payer BC, SELFPAY | PROVIDERS: PCP Internal Medicine; Visit Provider Nurse Practitioner Family | DX: N40.0 Benign prostatic hyperplasia without lower urinary tract symptoms (principal) | CPT/HCPCS: 51798; 81003 ==

== ENCOUNTER 2025-02-28 15:02 | Outpatient (REF) | payer BC, SELFPAY ==
--- OUTSIDE RECORDS SUMMARY | 2025-02-28 15:05 | XMS_ITS | Clinical Summary ---
Author Organization [facility] Address [address] [place] [address] [place] [address] Phone Care Team Providers Care Lmft Name Role Phone Tim Carter MD Primary Care Provider Allergies Active Allergy Reactions Criticality Noted Date [...] Exam 08/17/2020 Influenza Vaccine (#1) [address] [facility] [place] [address] Care Teams Lmft Relationship Specialty Start Date End Date Tim Carter MD ALLISON Lasso [address] [place] [address] PCP - General Internal Medicine 11/30/23
[2025-02-28 17:59] LABS: Anion Gap 16 (12-20); Blood Urea Nitrogen 63 mg/dL (9-16); Calcium 8.6 mg/dL (8.4-10.2); Carbon Dioxide 20 mmol/L (22-29); Chloride 110 mmol/L (96-108); Estimated Glomerular Filt Rate 21; Potassium 3.2 mmol/L (3.3-5.1); Sodium 143 mmol/L (135-145)
== END 2025-02-28 15:03 | disposition home or self-care (01) ==
LOC: HO.HKASLDS 15:02
PROVIDERS: Visit Provider Internal Medicine Hypertension Specialist
DX: N18.9 Chronic kidney disease, unspecified (principal)
CPT/HCPCS: 36415; 80048

== ENCOUNTER 2025-03-05 12:07 | Outpatient (AMB) | payer BC, SELFPAY ==
--- NOTE | 2025-03-05 12:12 | HO.NEPHOV_ITS ---
Vital Signs 03/05/25 12:15 Height 6 ft 2 in Weight 228 lb BMI 29.3 BP 162/90 H Blood Pressure Location Lt brachial Position Sitting Pulse 111 H Pulse Source Pulse Oximeter Pulse Oximetry (%) 98 Oxygen Delivery Method Room Air Intake Visit Reasons: 3mon follow-up w/labs Conf Aboriginal Home School Liaison Officer Required: No Accompanied by: Self / Same As Patient Allergies losartan Allergy (Unknown, Verified 03/05/25 12:16) Stomach Upset allopurinol Adverse Reaction (Severe, Verified 03/05/25 12:16) Itching amlodipine Adverse Reaction (Intermediate, Verified 03/05/25 12:16) edema Medication List - Last Reconciled 03/05/25 by Efraín Arita MD ascorbic acid (vitamin C) 1 g PO DAILY 90 days atorvastatin 80 mg PO DAILY cetirizine 10 mg PO DAILY doxazosin 2 mg PO BID glipizide 5 mg PO BID hydralazine 100 mg PO TID hydrochlorothiazide 12.5 mg PO DAILY metformin 500 mg PO ONCE methenamine hippurate 1 g PO daily 90 days metoprolol succinate ER 50 mg PO DAILY prednisone 20 mg (2 x 10 mg) PO DAILY PRN prednisone 1 mg PO DAILY PRN pregabalin 25 mg PO DAILY sildenafil 100 mg PO .PRN 30 days tadalafil 5 mg PO DAILY 90 days valsartan 160 mg PO DAILY HPI Comments Details: .Carrillo is a pleasant 53-year-old man with history of longstanding hypertension and diabetes mellitus for about 5 years. He has a history of BPH and was evaluated by Urology. He has had history of recurrent UTIs. During evaluation he was found to have proteinuria. This referral has been made for evaluation of proteinuria Currently he is on losartan 50 mg along with hydrochlorothiazide 25 mg. The blood pressure has been suboptimal. However he has been monitoring his blood pressure at home. History of gout. He is allergic to allopurinol. He was recently treated with a course of prednisone. He has not on any uric acid lowering agents. It does not take any NSAIDs. No history of smoking. No history of any alcohol abuse. He has on a regular diet. Not on any salt restriction. 01/17/2024. Currently he has pain in his right knees. He feels that gout has returned. Recently completed a course of antibiotic for UTI. He is still having symptoms of dysuria. Losartan has been added recently and since then he has been having diarrhea. He feels he might be allergic to this medication. He has been monitoring blood pressure at home and blood pressure readings are still suboptimal. The workup revealed serum creatinine of 2.1 mg/dL and 24 urine collection revealed a protein excretion of more than 3 g with a creatinine clearance of 48 mL/minute. 03/25/2024. He was scheduled for kidney biopsy for the 2nd time however procedure was canceled because his blood pressure was 140/90 mm Hg. It is unfortunate that posterior was canceled for blood pressure of 140/90. 05/08/2024. 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 He has significant who has vascular sclerosis as well. I started him on prednisone bought a week ago 08/07/24 Doing well No new issues Seen by Waiting for TURP No further UTI 11/27/24 54-year-old male presenting with follow-up concerns regarding chronic kidney function, hypertension, and diabetes management. His essential hypertension, a longstanding condition, has registered recent blood pressure measurements as high as 154/105 mmHg, prompting further evaluation and treatment adjustment. He has a prescribed regimen that includes doxazosin, hydralazine, valsartan, and a newly added metoprolol due to persistent hypertension. Recently, atorvastatin dosage was increased for hyperlipidemia management. The patient underwent a TURP procedure on October 25 for benign prostatic hyperplasia, noting improvements in urinary flow and reduction in UTI occurrences postoperatively. The patient's Type 2 Diabetes Mellitus management indicates an A1c level between 5 and 6% on last review. Adjustments to metformin were advised due to renal considerations, although clarification was provided regarding non-damaging effects on kidney function with adequate GFR. Another antihyperglycemic agent, farxiga, was discontinued due to an allergic reaction. The patient also discusses previous usage of phosphomycin for UTIs, though it's currently d iscontinued in the absence of symptoms. 03/05/25 The patient is a 54-year-old male with chronic kidney disease. Knee pain started after a fall, with persistent pain and swelling since last Monday. Medication has partially alleviated the pain. Chronic kidney disease has progressed from 29% to 21% function, with diabetes contributing to scarring by biopsy Blood pressure is well-controlled at home but was elevated during the visit. Hydrochlorothiazide may be causing low potassium. Urology procedure improved urinary flow and reduced infections. MEDICAL HISTORY: - Hypertension - Diabetes mellitus - Chronic kidney disease - Urinary tract infections - Gout SURGICAL HISTORY: - Transurethral resection of the prostate (TURP) in October MEDICATIONS: - Hydrochlorothiazide 12.5 mg for hypertension - Methenamine for urinary tract infection prevention - Valsartan for kidney support SOCIAL HISTORY: - The patient engages in a significant amount of walking at work. DIAGNOSTIC RESULTS: - Kidney function decreased from 29% to 21% over the past year - Potassium levels noted to be low [facility] Medical History Bacteriuria Urinary tract infection Urethral discharge, with blood Benign hypertension with stage 3b chronic kidney disease Recurrent UTI Hypertension Hyperlipidemia Gout Glucose intolerance Diabetes mellitus type 2, noninsulin dependent Surgical History No pertinent past surgical history Family History Father Diabetes CHF (congestive heart failure) Hypertension Mother Diabetes Social History Household Members: None Housing: Apartment Alcohol intake: current Comment: Ocassionally Patient Tobacco Use Status: Never used Tobacco Physical Exam Vital Signs: Last Vital Signs Pulse 111 H 03/05/25 12:15 BP 162/90 H 03/05/25 12:15 Pulse Ox 98 03/05/25 12:15 Oxygen Delivery Method Room Air 03/05/25 12:15 BMI result Body Mass Index 29.3 Comfortable Neck supple no JVD. Lungs entry equal no rales. Heart S1-S2 heard no gallop or rub. Abdomen soft nontender. Neuro alert awake oriented. No asterixis. Extremities no edema. Results Reviewed Nephrology Results: Hgb, (14.0-18.0) 9.2 g/dl L 11/27/24 WBC, (4.8-10.8) 5.8 X10*3/uL 11/27/24 Plt Count, (160-400) 353 X10*3/uL Δ 11/27/24 Sodium, (135-145) 143 mmol/L 02/28/25 Potassium, (3.3-5.1) 3.2 mmol/L L 02/28/25 Chloride, (96-108) 110 mmol/L H 02/28/25 Carbon Dioxide, (22-29) 20 mmol/L L 02/28/25 BUN, (9-16) 63 mg/dL H 02/28/25 Creatinine, (0.5-1.4) 3.13 mg/dL H 02/28/25 Calcium, (8.4-10.2) 8.6 mg/dL 02/28/25 PTH Intact, (8.7-77.1) 229.3 pg/mL H 08/08/24 Urine Protein, (Neg-Trace) 300 (3+) mg/dL H 11/27/24 Assessment & Plan Assessment & Plan (1) CKD (chronic kidney disease): Code(s): N18.9 - Chronic kidney disease, unspecified Category: Medical (2) Proteinuria: Code(s): R80.9 - Proteinuria, unspecified Category: Medical (3) Urinary tract infection: Code(s): N39.0 - Urinary tract infection, site not specified Category: Medical (4) Diabetes mellitus type 2, noninsulin dependent: Code(s): E11.9 - Type 2 diabetes mellitus without complications Category: Medical (5) Gout: Code(s): M10.9 - Gout, unspecified Category: Medical Qualifiers: Chronicity: chronic Gout etiology: due to renal impairment Gout site: multiple sites Presence of tophus: with tophus Qualified Code(s): M1A.39X1 - Chronic gout due to renal impairment, multiple sites, with tophus (tophi) (6) Renal cyst: Code(s): N28.1 - Cyst of kidney, acquired Category: Medical Plan . Middle-aged man with longstanding hypertension and diabetes mellitus with proteinuria by dipstick. 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 -Patchy acute tubular necrosis. -Moderate chronic changes. -Global glomerulosclerosis: 40% global; 11% segmental -Tubular atrophy/interstitial fibrosis: 35-40% -Vascular sclerosis: Moderate, with hyalinosis Chronic kidney disease -as above Goal is to slow the progression of renal disease. Continue overt nephrotoxic agents. Maximize KVNG inhibition for renal protection. He will benefit from SGLT2 inhibitors Completed course of prednisone given finding of interstitial nephritis Add Farxiga 5 mg QD (05/29/24) Hypertension Blood pressure is suboptimal. Since he is intolerant to losartan I switched it to valsartan 160 mg daily. I am not adding HCTZ due to history of gout. Keep hydralazine 100 mg t.i.d. keep Dozaxosin 2 mg BID (05/29/24) Goal is to maintain blood pressure less than 130/80. Encouraged him to stay on low-sodium diet. Diabetes mellitus Goal is to maintain A1c less than 7%. Gout He has had multiple episodes of gout in the past. Uric acid level was normal at 5.0 We will not add Uloric at this time. Follow up with Rheumatology l Encouraged him to stay on low purine diet. Recurrent UTI. Follow up with Urology s/p TURP. 11/27/24 s/p TURP Expect some improvement in renal function Ordered renal panel today If eGFR remains < 30, would stop Metformin due to the risk of Lactic acidosis. Overall BP is better controlled; Volume status is acceptable. Stay on low salt diet No change in meds today 03/05/25 CKD 4 BP better controlled DC HCTZ due to worsening Cr Low Salt diet Increase PO fluid no indication for dialysis Orders: Orders Potassium Urine Random 2 Months N18.9 - Chronic kidney disease, unspecified, R80.9 - Proteinuria, unspecified Creatinine Urine 2 Months N18.9 - Chronic kidney disease, unspecified, R80.9 - Proteinuria, unspecified Creatine Kinase Total 2 Months N18.9 - Chronic kidney disease, unspecified, R80.9 - Proteinuria, unspecified Parathyroid Hormone Intact 2 Months N18.9 - Chronic kidney disease, unspecified, R80.9 - Proteinuria, unspecified Hemoglobin A1c 2 Months N18.9 - Chronic kidney disease, unspecified, R80.9 - Proteinuria, unspecified Total Protein Urine Random 2 Months N18.9 - Chronic kidney disease, unspecified, R80.9 - Proteinuria, unspecified Basic Metabolic Panel 2 Months N18.9 - Chronic kidney disease, unspecified, R80.9 - Proteinuria, unspecified Medications: New nebivolol (Bystolic) 10 mg PO DAILY 30 tabs 1RF Coding Level of Care Code Est Pt Level 4 (01678) Diagnoses CKD (chronic kidney disease) N18.9 Proteinuria R80.9 Urinary tract infection N39.0 Diabetes mellitus type 2, noninsulin dependent E11.9 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
[2025-03-05 12:15] VITALS: BP 162/90; PULSE 111; O2SAT 98; BMI 29.3
--- OUTSIDE RECORDS SUMMARY | 2025-03-05 13:13 | XMS_ITS | Clinical Summary ---
Author Organization [address] [place] [address] [place] [id number] Phone Care Team Providers Care Director Of Development And Marketing Name Role Phone Tim Carter MD Primary Care Provider [phone] Allergies Active Allergy Reactions Criticality Noted Date Comments Colchicine 02/14/2025 Medications aspirin 81 mg chewable tablet Chew 1 tablet (81 mg total) 1 (one) time each day. Active atorvastatin (LIPITOR) 80 mg tablet Take 1 tablet (80 mg total) by mouth at bedtime. Active doxazosin (CARDURA) 2 mg tablet Take 1 tablet (2 mg total) by mouth 1 (one) time each day. Active febuxostat (ULORIC) 40 mg tablet Take by mouth. Active glipiZIDE (GLUCOTROL) 5 mg tablet Take 1 tablet (5 mg total) by mouth 2 (two) times a day before meals. Active hydrALAZINE (APRESOLINE) 100 mg tablet Take 1 tablet (100 mg total) by mouth 2 (two) times a day. Active hydroCHLOROthia zide 12.5 mg tablet Take 1 tablet (12.5 mg total) by mouth 1 (one) time each day. Active metFORMIN (GLUCOPHAGE) 500 mg tablet Take 1 tablet (500 mg total) by mouth 2 (two) times a day with meals. Active methenamine hippurate (HIPREX) 1 gram tablet Take 1 tablet (1 g total) by mouth 2 (two) times a day with meals. Active trimethoprim-po lymyxin b (POLYTRIM) ophthalmic solution 1 drop 4 (four) times a day. Active pregabalin (LYRICA) 25 mg capsule Take 1 capsule (25 mg total) by mouth 2 (two) times a day. Max Daily Amount: 50 mg Active sildenafiL (VIAGRA) 100 mg tablet Take 1 tablet (100 mg total) by mouth 1 (one) time each day if needed for erectile dysfunction. Active tadalafiL (CIALIS) 5 mg tablet Take 1 tablet (5 mg total) by mouth 1 (one) time each day. Active valsartan (DIOVAN) 160 mg tablet Take 1 tablet (160 mg total) by mouth 1 (one) time each day. Active Encounters Date Type Department Care Team Description 02/14/2025 Telephone Gastroenterology - [address] [place] [address] Madhavi Boston MD from Last 3 Months Immunizations Name Administration Dates Next Due COVID-19 (Moderna/Spikevax) 12yo and older 06/02 Social History Tobacco Use Types Packs/Day Years Used Date Smoking Tobacco: Never Assessed Sex and Gender Information Value Date Recorded Sex Assigned at Not on file Legal Sex Male 7:58 PM EST Gender Identity Not on file Sexual Orientation Not on file Plan of Treatment Health Maintenance Due Date Last Done Comments DTaP,Tdap,and Td Vaccines (1 - Tdap) 1988 Hepatitis B Vaccines (1 of 3 - 19+ 3-dose series) 1988 Pneumococcal Vaccine: 50+ Ye ars (1 of 1 - PCV) 2019 Zoster Vaccines (1 of 2) 2019 COVID-19 Vaccine (2 - 2023-2 5 season) 2024 06/02/2022 Cholesterol Screening (Lipid Panel) 05/03/2024 Colorectal Cancer Screening: Colonoscopy 05/03/2024 HIV Screening 05/03/2024 Hepatitis C Screening 05/03/2024 Social Influencers of Health Screening 05/03/2024 Depression Screening 07/17/2024 Influenza Vaccine (#1) 2025 HIB Vaccines Aged Out No longer eligi ble based on patient's age to complete this topic HPV Vaccines Aged Out No longer eligi ble based on patient's age to complete this topic Hepatitis A Vaccines Aged Out No long er eligible based on patient's age to complete this topic IPV Vaccines Aged Out No longer eligi ble based on patient's age to complete this topic MMR Vaccines Aged Out No longer eligi ble based on patient's age to complete this topic Meningococcal ACWY Vaccine Aged Out N o longer eligible based on patient's age to complete this topic Meningococcal B Vaccine Aged Out No l onger eligible based on patient's age to complete this topic RSV Immunization Patients Un justin 20 months Aged Out No longer eligible b ased on patient's age to complete this topic Varicella Vaccines Aged Out No longer eligible based on patient's age to complete this topic Insurance [facility] Care Teams Director Of Development And Marketing Relationship Specialty Start Date End Date Tim Carter MD [address] [facility] [place] [address] PCP - General 11/14/18
--- OUTSIDE RECORDS SUMMARY | 2025-03-05 13:13 | XMS_ITS | Clinical Summary ---
Author Organization [facility] Address [address] [place] [address] [place] [address] Phone Care Team Providers Care Landscape Contractor Name Role Phone Tim Carter MD Primary Care Provider [phone] Allergies Active Allergy Reactions Criticality Noted Date [...] Influenza Vaccine (#1) [address] [facility] [place] [address] Care Teams Landscape Contractor Relationship Specialty Start Date End Date Tim Carter MD [employer] work [address] [place] [address] PCP - General Internal Medicine 11/30/23
== END 2025-03-05 12:38 | disposition home or self-care (01) ==
LOC: HO.HKAS 12:08
PROVIDERS: PCP Internal Medicine; Visit Provider Internal Medicine Hypertension Specialist
DX: N18.9 Chronic kidney disease, unspecified (principal); R80.9 Proteinuria, unspecified; N39.0 Urinary tract infection, site not specified; E11.9 Type 2 diabetes mellitus without complications; M1A.39X1 Chronic gout due to renal impairment, multiple sites, with tophus (tophi); N28.1 Cyst of kidney, acquired
CPT/HCPCS: 99214

== ENCOUNTER 2025-05-05 10:20 | Outpatient (REF) | payer BC, SELFPAY ==
[2025-05-05 13:36] LABS: Anion Gap 13 (12-20); Blood Urea Nitrogen 58 mg/dL (9-16); Calcium 8.7 mg/dL (8.4-10.2); Carbon Dioxide 22 mmol/L (22-29); Chloride 111 mmol/L (96-108); Estimated Glomerular Filt Rate 21; Potassium 3.3 mmol/L (3.3-5.1); Sodium 143 mmol/L (135-145)
[2025-05-05 14:27] LABS: Total Protein Urine Random 247 mg/dL (<12)
[2025-05-05 16:53] LABS: Parathyroid Hormone Intact 283.8 pg/mL (8.7-77.1)
== END 2025-05-05 10:21 | disposition home or self-care (01) ==
LOC: HO.HKASLDS 10:20
PROVIDERS: PCP Internal Medicine; Visit Provider Internal Medicine Hypertension Specialist
DX: N18.9 Chronic kidney disease, unspecified (principal); R80.9 Proteinuria, unspecified; Z13.1 Encounter for screening for diabetes mellitus
CPT/HCPCS: 36415; 80048; 82550; 82570; 83036; 83970; 84133; 84156

== ENCOUNTER 2025-05-07 14:53 | Outpatient (AMB) | payer BC, SELFPAY ==
--- NOTE | 2025-05-07 14:57 | HO.NEPHOV_ITS ---
Vital Signs 05/07/25 14:58 Height 6 ft 2 in Weight 234 lb BMI 30.0 BP 132/80 Blood Pressure Location Rt brachial Position Sitting Pulse 81 Pulse Source Pulse Oximeter Pulse Oximetry (%) 99 Oxygen Delivery Method Room Air Intake Visit Reasons: 2 months F/U confirmed Corrugated Fastener Driver Required: No Accompanied by: Self / Same As Patient Allergies losartan Allergy (Unknown, Verified 05/07/25 14:59) Stomach Upset allopurinol Adverse Reaction (Severe, Verified 05/07/25 14:59) Itching amlodipine Adverse Reaction (Intermediate, Verified 05/07/25 14:59) edema Medication List - Last Reconciled 05/07/25 by Efraín Arita MD ascorbic acid (vitamin C) 1 g PO DAILY 90 days atorvastatin 80 mg PO DAILY cetirizine 10 mg PO DAILY doxazosin 2 mg PO BID febuxostat 40 mg PO DAILY glipizide 5 mg PO BID hydralazine 100 mg PO TID metformin 500 mg PO ONCE methenamine hippurate 1 g PO daily 90 days nebivolol 10 mg PO DAILY prednisone 1 mg PO DAILY PRN prednisone 20 mg (2 x 10 mg) PO DAILY PRN pregabalin 25 mg PO DAILY sildenafil 100 mg PO .PRN 30 days tadalafil 5 mg PO DAILY 90 days valsartan 160 mg PO DAILY HPI Comments Details: .Carrillo is a pleasant 53-year-old man with history of longstanding hypertension and diabetes mellitus for about 5 years. He has a history of BPH and was evaluated by Urology. He has had history of recurrent UTIs. During evaluation he was found to have proteinuria. This referral has been made for evaluation of proteinuria Currently he is on losartan 50 mg along with hydrochlorothiazide 25 mg. The blood pressure has been suboptimal. However he has been monitoring his blood pressure at home. History of gout. He is allergic to allopurinol. He was recently treated with a course of prednisone. He has not on any uric acid lowering agents. It does not take any NSAIDs. No history of smoking. No history of any alcohol abuse. He has on a regular diet. Not on any salt restriction. 01/17/2024. Currently he has pain in his right knees. He feels that gout has returned. Recently completed a course of antibiotic for UTI. He is still having symptoms of dysuria. Losartan has been added recently and since then he has been having diarrhea. He feels he might be allergic to this medication. He has been monitoring blood pressure at home and blood pressure readings are still suboptimal. The workup revealed serum creatinine of 2.1 mg/dL and 24 urine collection revealed a protein excretion of more than 3 g with a creatinine clearance of 48 mL/minute. 03/25/2024. He was scheduled for kidney biopsy for the 2nd time however procedure was canceled because his blood pressure was 140/90 mm Hg. It is unfortunate that posterior was canceled for blood pressure of 140/90. 05/08/2024. 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 He has significant who has vascular sclerosis as well. I started him on prednisone bought a week ago 08/07/24 Doing well No new issues Seen by Waiting for TURP No further UTI 11/27/24 54-year-old male presenting with follow-up concerns regarding chronic kidney function, hypertension, and diabetes management. His essential hypertension, a longstanding condition, has registered recent blood pressure measurements as high as 154/105 mmHg, prompting further evaluation and treatment adjustment. He has a prescribed regimen that includes doxazosin, hydralazine, valsartan, and a newly added metoprolol due to persistent hypertension. Recently, atorvastatin dosage was increased for hyperlipidemia management. The patient underwent a TURP procedure on October 25 for benign prostatic hyperplasia, noting improvements in urinary flow and reduction in UTI occurrences postoperatively. The patient's Type 2 Diabetes Mellitus management indicates an A1c level between 5 and 6% on last review. Adjustments to metformin were advised due to renal considerations, although clarification was provided regarding non-damaging effects on kidney function with adequate GFR. Another antihyperglycemic agent, farxiga, was discontinued due to an allergic reaction. The patient also discusses previous usage of phosphomycin for UTIs, though it's currently discontinued in the absence of symptoms. 03/05/25 The patient is a 54-year-old male with chronic kidney disease. Knee pain started after a fall, with persistent pain and swelling since last Monday. Medication has partially alleviated the pain. Chronic kidney disease has progressed from 29% to 21% function, with diabetes contributing to scarring by biopsy Blood pressure is well-controlled at home but was elevated during the visit. Hydrochlorothiazide may be causing low potassium. Urology procedure improved urinary flow and reduced infections. MEDICAL HISTORY: - Hypertension - Diabetes mellitus - Chronic kidney disease - Urinary tract infections - Gout SURGICAL HISTORY: - Transurethral resection of the prostate (TURP) in October MEDICATIONS: - Hydrochlorothiazide 12.5 mg for hypertension - Methenamine for urinary tract infection prevention - Valsartan for kidney support SOCIAL HISTORY: - The patient engages in a significant amount of walking at work. DIAGNOSTIC RESULTS: - Kidney function decreased from 29% to 21% over the past year - Potassium levels noted to be low 05/07/25 - The patient is a 54-year-old male presenting with management of chronic kidney disease and associated conditions. - Chronic Kidney Disease: Declining kidney function with current filtration rate at 21%. - Diabetes Mellitus: 10-year history with episodes of diabetic ketoacidosis. - Hypertension: Managed with hydralazine and valsartan, home BP in 140s/80s. - Rash: Abdominal rash, - Preventative Care: Prophylactic treatment for UTIs. [facility] Medical History Bacteriuria Urinary tract infection Urethral discharge, with blood Benign hypertension with stage 3b chronic kidney disease Recurrent UTI Hypertension Hyperlipidemia Gout Glucose intolerance Diabetes mellitus type 2, noninsulin dependent Surgical History No pertinent past surgical history Family History Father Diabetes CHF (congestive heart failure) Hypertension Mother Diabetes Social History Household Members: None Housing: Apartment Alcohol intake: current Comment: Ocassionally Patient Tobacco Use Status: Never used Tobacco Physical Exam Vital Signs: Last Vital Signs Pulse 81 05/07/25 14:58 BP 132/80 05/07/25 14:58 Pulse Ox 99 05/07/25 14:58 Oxygen Delivery Method Room Air 05/07/25 14:58 BMI result Body Mass Index 30.0 Comfortable Neck supple no JVD. Lungs entry equal no rales. Heart S1-S2 heard no gallop or rub. Abdomen soft nontender. Neuro alert awake oriented. No asterixis. Extremities no edema. Results Reviewed Results Reviewed: RIGHT KIDNEY: 10.5 x 5.1 x 5.5 cm (SAG x AP x TRV). The kidney is normal in size, contour, and echogenicity. Renal cortical thickness is normal. No renal calculi or hydronephrosis. Multiple simple cysts, the largest measures 2.1 cm in the upper pole. No follow-up imaging is recommended. LEFT KIDNEY: 9.6 x 5.0 x 5.7 cm (SAG x AP x TRV). The kidney is normal in size and echogenicity. lobulation. Renal cortical thickness is normal. No renal calculi or hydronephrosis. 0.4 cm simple cyst in the mid kidney. No follow-up imaging is recommended. BLADDER: Well distended and normal. Bilateral ureteral jets are demonstrated. Prevoid bladder volume is 119 mL. Postvoid bladder volume is 6.5 mL. ADDITIONAL FINDINGS: The prostate measures 36 mL. US/US retroperitoneal comp IMPRESSION: Enlarged prostate. No nephrolithiasis or hydronephrosis. Nephrology Results: Hgb, (14.0-18.0) 9.2 g/dl L 11/27/24 WBC, (4.8-10.8) 5.8 X10*3/uL 11/27/24 Plt Count, (160-400) 353 X10*3/uL Δ 11/27/24 Sodium, (135-145) 143 mmol/L 05/05/25 Potassium, (3.3-5.1) 3.3 mmol/L 05/05/25 Chloride, (96-108) 111 mmol/L H 05/05/25 Carbon Dioxide, (22-29) 22 mmol/L 05/05/25 BUN, (9-16) 58 mg/dL H 05/05/25 Creatinine, (0.5-1.4) 3.16 mg/dL H 05/05/25 Calcium, (8.4-10.2) 8.7 mg/dL 05/05/25 PTH Intact, (8.7-77.1) 283.8 pg/mL H 05/05/25 Urine Protein, (Neg-Trace) 300 (3+) mg/dL H 11/27/24 Urine Creatinine 196.79 mg/dL 05/05/25 Assessment & Plan Assessment & Plan (1) CKD (chronic kidney disease): Code(s): N18.9 - Chronic kidney disease, unspecified Category: Medical (2) Proteinuria: Code(s): R80.9 - Proteinuria, unspecified Category: Medical (3) Urinary tract infection: Code(s): N39.0 - Urinary tract infection, site not specified Category: Medical (4) Diabetes mellitus type 2, noninsulin dependent: Code(s): E11.9 - Type 2 diabetes mellitus without complications Category: Medical (5) Gout: Code(s): M10.9 - Gout, unspecified Category: Medical Qualifiers: Chronicity: chronic Gout etiology: due to renal impairment Gout site: multiple sites Presence of tophus: with tophus Qualified Code(s): M1A.39X1 - Chronic gout due to renal impairment, multiple sites, with tophus (tophi) (6) Renal cyst: Code(s): N28.1 - Cyst of kidney, acquired Category: Medical Plan . Middle-aged man with longstanding hypertension and diabetes mellitus with proteinuria by dipstick. 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 -Patchy acute tubular necrosis. -Moderate chronic changes. -Global glomerulosclerosis: 40% global; 11% segmental -Tubular atrophy/interstitial fibrosis: 35-40% -Vascular sclerosis: Moderate, with hyalinosis Chronic kidney disease -as above Goal is to slow the progression of renal disease. Continue overt nephrotoxic agents. Maximize KVNG inhibition for renal protection. He will benefit from SGLT2 inhibitors Completed course of prednisone given finding of interstitial nephritis Add Farxiga 5 mg QD (05/29/24) discontinued due to itching Restart Farxiga 5 mg daily and see if he is able to tolerate this time (05/07/25) Hypertension Blood pressure is acceptable Since he is intolerant to losartan I switched it to valsartan 160 mg daily and tolerating. I am not adding HCTZ due to history of gout. Keep hydralazine 100 mg t.i.d. keep Dozaxosin 2 mg BID (05/29/24) Goal is to maintain blood pressure less than 130/80. Encouraged him to stay on low-sodium diet. Diabetes mellitus Goal is to maintain A1c less than 7%. Gout He has had multiple episodes of gout in the past. Uric acid level was normal at 5.0 We will not add Uloric at this time. Follow up with Rheumatology Encouraged him to stay on low purine diet. Recurrent UTI. Follow up with Urology s/p TURP. eGFR remains < 30, would suggest to stop Metformin due to the risk of Lactic acidosis. Overall BP is better controlled; Volume status is acceptable. Stay on low salt diet No change in meds today Orders: Orders Comprehensive Met. 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
[2025-05-07 14:58] VITALS: BP 132/80; PULSE 81; O2SAT 99
--- OUTSIDE RECORDS SUMMARY | 2025-05-07 21:08 | XMS_ITS | Clinical Summary ---
Author Organization [address] [place] [address] [place] [phone] Phone Care Team Providers Care Gas Main And Line Fitter Name Role Phone Tim Carter MD Primary Care Provider [phone] Allergies Active Allergy Reactions Criticality Noted Date [...] 02/14/2025 Telephone Gastroenterology - [address] [facility] [address] [place] [address] Madhavi Boston MD from Last 3 Months Immunizations Immunization Administration Dates Next Due COVID-19 (Moderna/Spikevax) 12yo and older 06/02 Social History Tobacco Use Types Packs/Day Years Used Date Smoking Tobacco: Never Assessed Sex and Gender Information Value Date Recorded Sex Assigned at Not on file Legal Sex Male 7:58 PM EST Gender Identity Not on file Sexual Orientation Not on file Plan of Treatment Health Maintenance Due Date Last Done Comments Colorectal Cancer Screening: Colonoscopy 1969 DTaP,Tdap,and Td Vaccines (1 - Tdap) 1988 Hepatitis B Vaccines (1 of 3 - 19+ 3-dose series) 1988 Pneumococcal Vaccine: 50+ Ye ars (1 of 1 - PCV) 2019 Zoster Vaccines (1 of 2) 2019 Cholesterol Screening (Lipid Panel) 05/03/2024 HIV Screening 05/03/2024 Hepatitis C Screening 05/03/2024 Social Influencers of Health Screening 05/03/2024 Depression Screening 07/17/2024 COVID-19 Vaccine (2 - 2024-2 6 season) 2025 06/02/2022 Influenza Vaccine (#1) 2025 RSV Immunization Adult Patie nts (1 - 1-dose 75+ series) 2044 HIB Vaccines Aged Out No longer eligi [...] patient's age to complete this topic Insurance [facility] Care Teams Gas Main And Line Fitter Relationship Specialty Start Date End Date Tim Carter MD [address] [place] [address] PCP - General 11/14/18
== END 2025-05-07 15:25 | disposition home or self-care (01) ==
LOC: HO.HKAE 14:53
PROVIDERS: PCP Internal Medicine; Visit Provider Internal Medicine Hypertension Specialist
DX: N18.9 Chronic kidney disease, unspecified (principal); R80.9 Proteinuria, unspecified; N39.0 Urinary tract infection, site not specified; E11.9 Type 2 diabetes mellitus without complications; M1A.39X1 Chronic gout due to renal impairment, multiple sites, with tophus (tophi); N28.1 Cyst of kidney, acquired
CPT/HCPCS: 99214

== ENCOUNTER 2025-06-24 14:54 | Outpatient (REF) | payer BC, SELFPAY ==
[2025-06-24 18:22] LABS: Hematocrit 32.2 % (42.0-52.0); Hemoglobin 10.5 g/dl (14.0-18.0); Mean Corpuscular HGB Conc 32.6 g/dl (31.0-36.0); Mean Corpuscular Hemoglobin 26.9 pg (27.0-33.0); Mean Corpuscular Volume 82.4 fL (80.0-98.0); NRBC Abs Auto 0.000 X10*3/uL (0.0-0.012); NRBC Pct Auto 0.0 /100WBC (0.0-0.2); Platelet Count 273 X10*3/uL (160-400); Red Blood Count 3.91 X10*6/uL (4.60-5.80); White Blood Count 6.5 X10*3/uL (4.8-10.8)
[2025-06-24 18:31] LABS: Alanine Aminotransferase 13 U/L (0-40); Albumin Level 4.6 g/dL (3.5-5.0); Alkaline Phosphatase 69 U/L (39-117); Anion Gap 16 (12-20); Aspartate Amino Transferase 17 U/L (5-37); Blood Urea Nitrogen 54 mg/dL (9-16); Calcium 9.2 mg/dL (8.4-10.2); Carbon Dioxide 20 mmol/L (22-29); Chloride 114 mmol/L (96-108); Estimated Glomerular Filt Rate 18; Potassium 3.6 mmol/L (3.3-5.1); Sodium 146 mmol/L (135-145); Total Protein 7.7 g/dL (6.5-8.0)
== END 2025-06-24 14:55 | disposition home or self-care (01) ==
LOC: HO.HKASLDS 14:54
PROVIDERS: PCP Internal Medicine; Visit Provider Internal Medicine Hypertension Specialist
DX: N18.9 Chronic kidney disease, unspecified (principal); R80.9 Proteinuria, unspecified
CPT/HCPCS: 36415; 80053; 85027

== ENCOUNTER 2025-06-25 15:14 | Outpatient (AMB) | payer BC, SELFPAY ==
[2025-06-25 15:16] VITALS: BP 132/82; PULSE 81; O2SAT 96; BMI 29.1
--- NOTE | 2025-06-25 15:16 | HO.NEPHOV ---
Vital Signs 06/25/25 15:16 Height 6 ft 2 in Weight 227 lb BMI 29.1 BP 132/82 Blood Pressure Location Rt brachial Position Sitting Pulse 81 Pulse Source Pulse Oximeter Pulse Oximetry (%) 96 Oxygen Delivery Method Room Air Intake Visit Reasons: 2mon f/u w/labs Nuclear Equipment Operator Required: No Accompanied by: Self / Same As Patient Allergies losartan Allergy (Unknown, Verified 06/25/25 15:17) Stomach Upset allopurinol Adverse Reaction (Severe, Verified 06/25/25 15:17) Itching amlodipine Adverse Reaction (Intermediate, Verified 06/25/25 15:17) edema Medication List - Last Reconciled 06/25/25 by Efraín Arita MD ascorbic acid (vitamin C) 1 g PO DAILY 90 days atorvastatin 80 mg PO DAILY cetirizine 10 mg PO DAILY dapagliflozin propanediol (Farxiga) 5 mg PO DAILY doxazosin 2 mg PO BID febuxostat 40 mg PO DAILY glipizide 5 mg PO BID hydralazine 100 mg PO TID hydrochlorothiazide 12.5 mg PO DAILY metformin 500 mg PO ONCE methenamine hippurate 1 g PO daily 90 days nebivolol 10 mg PO DAILY prednisone 20 mg (2 x 10 mg) PO DAILY PRN prednisone 1 mg PO DAILY PRN pregabalin 25 mg PO DAILY sildenafil 100 mg PO .PRN 30 days tadalafil 5 mg PO DAILY 90 days valsartan 160 mg PO DAILY HPI Comments Details: History of Present Illness The patient is a 55 year old male presenting for follow-up management of chronic kidney disease. His kidney function has been progressively declining, with his eGFR dropping from 32% in December 2023 and 30% last year to 25% in November, 21% in February and April, and is now at 18%. His laboratory results also show an elevated sodium level. The patient's medical history is significant for type 2 diabetes, for which he takes metformin once a day, glipizide 5 mg twice a day, and recently started Farxiga about 40 days ago. He reports good blood sugar control on this regimen. He also has a history of hypertension, managed with valsartan 160 mg and hydrochlorothiazide. He reports home blood pressure readings around 140 systolic. The patient reports that a recent rash has improved. He experiences intermittent nausea, ankle swelling, nocturia (3-4 times per night), and significant dry mouth, particularly at night. He is also followed by urology for prostate issues and takes doxazosin and methanamine. He denies snoring. Regarding symptoms of uremia, the patient notes feeling sleepy when coming home from work and having a poor appetite, though he has not lost weight. He typically consumes snacks during the workday and has one main meal in the evening. He reports drinking about six bottles of water daily. Results - Kidney Function: Current eGFR is 18%. - Kidney Function Trend: Previous eGFR was 21% in April, 25% in February, and 32% in December 2023. - Electrolytes: Sodium level is elevated. 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 -Patchy acute tubular necrosis. -Moderate chronic changes. -Global glomerulosclerosis: 40% global; 11% segmental -Tubular atrophy/interstitial fibrosis: 35-40% -Vascular sclerosis: Moderate, with hyalinosis PFSH Medical History Bacteriuria Urinary tract infection Urethral discharge, with blood Benign hypertension with stage 3b chronic kidney disease Recurrent UTI Hypertension Hyperlipidemia Gout Glucose intolerance Diabetes mellitus type 2, noninsulin dependent Surgical History No pertinent past surgical history Family History Father Diabetes CHF (congestive heart failure) Hypertension Mother Diabetes Social History Household Members: None Housing: Apartment Alcohol intake: current Comment: Ocassionally Patient Tobacco Use Status: Never used Tobacco Physical Exam Exam Exam: Physical Exam General: Awake. Comfortable. HENT: Neck supple. Mucosa dry. Pulmonary: Lungs aeration equal. No rales. Cardiology: Heart S1-S2 heard. No gallop. Abdomen: Soft. Non tender. Bowel sounds normal. Neurologic: No involuntary movements. No myoclonus. Extremities: Mild swelling in the ankles. No rash. Vital Signs: Last Vital Signs Pulse 81 06/25/25 15:16 BP 132/82 06/25/25 15:16 Pulse Ox 96 06/25/25 15:16 Oxygen Delivery Method Room Air 06/25/25 15:16 BMI result Body Mass Index 29.1 Results Reviewed Nephrology Results: Hgb, (14.0-18.0) 10.5 g/dl L 06/24/25 WBC, (4.8-10.8) 6.5 X10*3/uL 06/24/25 Plt Count, (160-400) 273 X10*3/uL 06/24/25 Sodium, (135-145) 146 mmol/L H 06/24/25 Potassium, (3.3-5.1) 3.6 mmol/L 06/24/25 Chloride, (96-108) 114 mmol/L H 06/24/25 Carbon Dioxide, (22-29) 20 mmol/L L 06/24/25 BUN, (9-16) 54 mg/dL H 06/24/25 Creatinine, (0.5-1.4) 3.54 mg/dL H 06/24/25 Calcium, (8.4-10.2) 9.2 mg/dL 06/24/25 PTH Intact, (8.7-77.1) 283.8 pg/mL H 05/05/25 Urine Protein, (Neg-Trace) 300 (3+) mg/dL H 11/27/24 Urine Creatinine 196.79 mg/dL 05/05/25 Assessment & Plan Assessment & Plan (1) CKD (chronic kidney disease): Code(s): N18.9 - Chronic kidney disease, unspecified Category: Medical (2) Proteinuria: Code(s): R80.9 - Proteinuria, unspecified Category: Medical (3) Urinary tract infection: Code(s): N39.0 - Urinary tract infection, site not specified Category: Medical (4) Diabetes mellitus type 2, noninsulin dependent: Code(s): E11.9 - Type 2 diabetes mellitus without complications Category: Medical (5) Gout: Code(s): M10.9 - Gout, unspecified Category: Medical Qualifiers: Chronicity: chronic Gout etiology: due to renal impairment Gout site: multiple sites Presence of tophus: with tophus Qualified Code(s): M1A.39X1 - Chronic gout due to renal impairment, multiple sites, with tophus (tophi) (6) Renal cyst: Code(s): N28.1 - Cyst of kidney, acquired Category: Medical Plan Plan 1. Chronic Kidney Disease, Stage 4 Diabetic Nephropathy by biopsy - The patient's kidney function has declined to an eGFR of 18%, which is a progression of his chronic kidney disease. - Continue Farxiga, as it is expected to provide long-term renal protection despite the possibility of a temporary initial drop in GFR. - Continue valsartan and hydrochlorothiazide for blood pressure control, as stopping them would lead to uncontrolled hypertension and further kidney damage. - Discontinue metformin immediately due to the low eGFR, which increases the risk of side effects like lactic acidosis. - The patient was counseled that symptoms such as loss of appetite, fatigue, and weight loss can be associated with advanced kidney disease. - Schedule a follow-up appointment in August, with laboratory studies to be completed one week prior. 2. Type 2 Diabetes Mellitus - The patient's blood sugar is reportedly well-controlled. - Metformin will be discontinued due to advanced CKD. - Continue glipizide 5 mg twice a day. - The patient was instructed to monitor his blood sugars, with the option to increase glipizide to 10 mg if levels rise. - The patient will follow up with his primary diabetes provider, Dr. Wei, ideally in July. 3. Essential Hypertension - Blood pressure was 130/80 mmHg in the clinic, which is considered acceptable. - Continue current regimen of valsartan 160 mg and hydrochlorothiazide, as these are critical for blood pressure control and renal protection. 4. Hypernatremia / Dehydration - The elevated sodium level suggests dehydration, likely exacerbated by the diuretic effect of Farxiga. - The patient was counseled on the importance of maintaining adequate fluid intake to compensate for increased urination. 7. Urology Medication Management - The patient is scheduled to see urology on the to re-evaluate his medications, including doxazosin and methanamine. - Defer changes to these medications pending the urology consultation. Patient Instructions - Stop taking metformin immediately. - Continue taking Farxiga, valsartan, hydrochlorothiazide, and glipizide as prescribed. - Check your blood sugar at home. If it goes up after stopping metformin, you can increase your glipizide dose to 10 mg. - It is very important to drink plenty of water and other fluids, as Farxiga will make you urinate more often. - Be mindful of your salt intake. - Schedule an appointment with your diabetes doctor, Dr. Wei, for as soon as possible, ideally in July. - You have a follow-up appointment here in August. Please have your blood tests done about one week before this visit. - Keep your appointment with your urologist, Ingrid Andres, on the . Orders: Orders Complete Blood Count no Diff 8 Weeks N18.9 - Chronic kidney disease, unspecified, R80.9 - Proteinuria, unspecified Total Protein Urine Random 8 Weeks N18.9 - Chronic kidney disease, unspecified, R80.9 - Proteinuria, unspecified UA and rflx microscopic 8 Weeks N18.9 - Chronic kidney disease, unspecified, R80.9 - Proteinuria, unspecified Comprehensive Met. 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
--- OUTSIDE RECORDS SUMMARY | 2025-06-25 23:47 | XMS_ITS | Clinical Summary ---
Author Organization [address] [place] [address] [place] [id number] Phone Care Team Providers Care Furnace Mechanic Helper Name Role Phone Tim Carter MD Primary Care Provider [phone] Allergies Active Allergy Reactions Criticality Noted Date [...] mouth 1 (one) time each day. Active Immunizations Immunization Administration Dates Next Due COVID-19 [...] patient's age to complete this topic Insurance [facility] Care Teams Furnace Mechanic Helper Relationship Specialty Start Date End Date Tim Carter MD [address] [facility] [place] [address] PCP - General 11/14/18
== END 2025-06-25 15:41 | disposition home or self-care (01) ==
LOC: HO.HKAE 15:15
PROVIDERS: PCP Internal Medicine; Visit Provider Internal Medicine Hypertension Specialist
DX: N18.9 Chronic kidney disease, unspecified (principal); R80.9 Proteinuria, unspecified; N39.0 Urinary tract infection, site not specified; E11.9 Type 2 diabetes mellitus without complications; M1A.39X1 Chronic gout due to renal impairment, multiple sites, with tophus (tophi); N28.1 Cyst of kidney, acquired
CPT/HCPCS: 99214